=== PATIENT | female | born 1950 ===

== ENCOUNTER 2020-05-29 14:02 | Outpatient (REF) | payer MEDICARE, MEDICAID, SELFPAY | END 2020-05-29 14:03 | disposition home or self-care (01) | LOC: HO.HOSX 14:02 | PROVIDERS: Visit Provider Orthopaedic Surgery | DX: Z13.89 Encounter for screening for other disorder (principal) ==

== ENCOUNTER 2020-05-30 12:33 | Outpatient (REF) | payer MEDICARE, MEDICAID, SELFPAY ==
--- NOTE | ~2020-05-30 | XR_ITS ---
EXAMINATION: CR X-RAY KNEE RIGHT 2 VIEW, KNEE STANDING BILATERAL CLINICAL INFORMATION: Right knee pain. COMPARISON: 10/31/2017 TECHNIQUE: 2 views of the right knee as well as standing AP views of the bilateral knees. FINDINGS: Mild to moderate tricompartmental degenerative joint changes are seen most pronounced in the lateral femoral tibial and patellofemoral joint spaces. There is no acute fracture or dislocation. There is a possible trace suprapatellar joint effusion. The soft tissues are unremarkable. XR/XR knee RT 2V IMPRESSION: [id number] tricompartmental degenerative joint changes without significant change. Possible trace suprapatellar joint effusion.
--- NOTE | ~2020-05-30 | XR_ITS ---
EXAMINATION: CR X-RAY KNEE RIGHT 2 VIEW, KNEE STANDING BILATERAL CLINICAL INFORMATION: Right knee pain. COMPARISON: 10/31/2017 TECHNIQUE: 2 views of the right knee as well as standing AP views of the bilateral knees. FINDINGS: Mild to moderate tricompartmental degenerative joint changes are seen most pronounced in the lateral femoral tibial and patellofemoral joint spaces. There is no acute fracture or dislocation. There is a possible trace suprapatellar joint effusion. The soft tissues are unremarkable. XR/XR knee standing BI IMPRESSION: [id number] tricompartmental degenerative joint changes without significant change. Possible trace suprapatellar joint effusion.
== END 2020-05-30 12:34 | disposition home or self-care (01) ==
LOC: HO.HOSX 12:33
PROVIDERS: PCP Internal Medicine; Visit Provider Orthopaedic Surgery
DX: M25.561 Pain in right knee (principal); M25.562 Pain in left knee; M17.0 Bilateral primary osteoarthritis of knee
CPT/HCPCS: 20610; 73560; 73565; 99212; J1020; J1040

== ENCOUNTER 2020-11-09 15:43 | Outpatient (REF) | payer MEDICARE, MEDICAID, SELFPAY ==
--- NOTE | 2020-11-09 | PFT_ITS ---
INDICATION: Asthma, status post COVID. SPIROMETRY: The FEV1 to FVC of 89% with an FEV1 of 1.74 L which is 90% predicted, an FVC of 1.96 L which is 77% predicted. Postbronchodilator shows significant improvement of the FVC by 13%. Maximum voluntary ventilation 112% predicted. LUNG VOLUMES: Total lung capacity 92% predicted with an expiratory reserve volume of 44% predicted. DIFFUSION CAPACITY: DLCO of 90% predicted. COMPARISONS: None available. INTERPRETATION: No obstructive nor restrictive ventilatory defects identified. There was a significant response to bronchodilators especially with history of asthma. Lung volumes are within normal limits and diffusion capacity also within normal limits. Clinical correlation warranted. Nico De Luna MD MR/MODL / [id number]
== END 2020-11-09 15:44 | disposition home or self-care (01) ==
LOC: HO.RESP 15:43
PROVIDERS: PCP Internal Medicine Geriatric Medicine; Visit Provider Nurse Practitioner Primary Care
DX: J45.41 Moderate persistent asthma with (acute) exacerbation (principal); Z86.16 Personal history of COVID-19
CPT/HCPCS: 94060; 94727; 94729

== ENCOUNTER 2020-12-13 09:45 | Outpatient (REF) | payer MEDICARE, MEDICAID, SELFPAY ==
[2020-12-13 12:01] LABS: MANUAL DIFF FLAG NO
[2020-12-13 12:06] LABS: Basophils Absolute Auto 0.1 X10*3/uL (0.0-0.2); Basophils Percent Auto 1.1 % (0-2); Eosinophils Absolute Auto 0.4 X10*3/uL (0.0-0.4); Eosinophils Percent Auto 6.1 % (0-4); Hematocrit 37.9 % (37-47); Hemoglobin 11.8 g/dl (12.0-16.0); Imm Gran Abs Auto 0.02 X10*3/uL (0.00-0.03); Imm Gran Pct Auto 0.3 % (0.0-0.4); Lymphocytes Absolute Auto 1.8 X10*3/uL (1.2-4.9); Lymphocytes Percent Auto 28.7 % (20-40); Mean Corpuscular HGB Conc 31.1 g/dl (31.0-35.0); Mean Corpuscular Hemoglobin 27.6 pg (27.0-33.0); Mean Corpuscular Volume 88.8 fL (80-98); Mean Platelet Volume 11.4 fL (9.4-12.3); Monocytes Absolute Auto 0.7 X10*3/uL (0.1-1.2); Monocytes Percent Auto 10.9 % (2-11); Neutrophils Absolute Auto 3.4 X10*3/uL (2.0-8.3); Neutrophils Percent Auto 52.9 % (45-73); Platelet Count 272 X10*3/uL (160-400); Red Blood Count 4.27 X10*6/uL (4.20-5.50); Red Cell Distribution Width 13.3 % (11.0-16.0); White Blood Count 6.4 X10*3/uL (4.8-10.8)
[2020-12-13 12:32] LABS: Anion Gap 13 (12-20); Blood Urea Nitrogen 21 mg/dL (9-16); Calcium 9.3 mg/dL (8.4-10.2); Carbon Dioxide 27 mmol/L (22-29); Chloride 104 mmol/L (96-108); Estimated Glomerular Filt Rate > 60; Glucose Random 94 mg/dL (60-115); Potassium 4.1 mmol/L (3.3-5.1); Sodium 140 mmol/L (135-145)
[2020-12-13 13:30] LABS: Erythrocyte Sedimentation Rate 18 MM/HR (0-20)
[2020-12-16 13:46] LABS: IgA 319 mg/dL (70-320); IgG 1016 mg/dL (600-1540); IgM 45 mg/dL (50-300)
== END 2020-12-13 09:46 | disposition home or self-care (01) ==
LOC: HO.LAB 09:45
PROVIDERS: PCP Internal Medicine Geriatric Medicine; Visit Provider Hospitalist
DX: J33.9 Nasal polyp, unspecified (principal); J45.909 Unspecified asthma, uncomplicated; T78.40XA Allergy, unspecified, initial encounter
CPT/HCPCS: 36415; 80048; 82784; 82785; 85025; 85652; 86003; 99202

== ENCOUNTER → 2021-08-31 10:46 | Outpatient (BNVA) | payer MEDICARE, MEDICAID, SELFPAY | PROVIDERS: PCP Internal Medicine Geriatric Medicine; Visit Provider Hospitalist | DX: J45.50 Severe persistent asthma, uncomplicated (principal); J33.9 Nasal polyp, unspecified; T78.40XA Allergy, unspecified, initial encounter; Z79.899 Other long term (current) drug therapy | CPT/HCPCS: 99212 ==

== ENCOUNTER 2021-10-05 11:51 | Outpatient (REF) | payer MEDICARE, MEDICAID, SELFPAY | END 2021-10-05 11:52 | disposition home or self-care (01) | LOC: HO.MDS 11:51 | PROVIDERS: Visit Provider Hospitalist | DX: J45.40 Moderate persistent asthma, uncomplicated (principal); J82.83 Eosinophilic asthma | CPT/HCPCS: 96372; J0517 ==

== ENCOUNTER 2021-10-15 07:58 | Outpatient (REF) | payer MEDICARE, MEDICAID, SELFPAY ==
--- NOTE | ~2021-10-15 | XR_ITS ---
EXAMINATION: XR KNEES, STANDING AP XR KNEE, RIGHT XR KNEE, LEFT CLINICAL INFORMATION: Knee pain COMPARISON: Standing AP knees and right knee radiographs 05/30/2020. TECHNIQUE: Standing AP view of both knees is performed. Each knee is also imaged in lateral and axial patella views. FINDINGS: Right: There are osteoarthritic changes greatest patellofemoral joint without lateralization or tilting. Severity is similar to prior radiographs 2020. Lesser degenerative changes again noted medial lateral knee joint compartments. No visible chondrocalcinosis. No destructive process. No effusion. Hoffa's fat pad appears normal. No fracture or dislocation. Left: There is tricompartment osteoarthritis greatest in patellofemoral joint and lateral knee joint compartment similar in severity to prior exam 2020. There is borderline secondary genu valgus. No chondrocalcinosis. No capsular effusion. Hoffa's fat pad appears normal. No fracture or dislocation. XR/XR knee RT 2V IMPRESSION: Right: -Osteoarthritis greatest patellofemoral joint, lesser knee joint. -No effusion. Left: -Tricompartment osteoarthritis greatest patellofemoral joint and lateral knee joint compartment. -Borderline secondary genu valgus. -No effusion.
--- NOTE | ~2021-10-15 | XR_ITS ---
EXAMINATION: XR KNEES, STANDING AP XR KNEE, RIGHT XR KNEE, LEFT CLINICAL INFORMATION: Knee pain COMPARISON: Standing AP knees and right knee radiographs 05/30/2020. TECHNIQUE: Standing AP view of both knees is performed. Each knee is also imaged in lateral and axial patella views. FINDINGS: Right: There are osteoarthritic changes greatest patellofemoral joint without lateralization or tilting. Severity is similar to prior radiographs 2020. Lesser degenerative changes again noted medial lateral knee joint compartments. No visible chondrocalcinosis. No destructive process. No effusion. Hoffa's fat pad appears normal. No fracture or dislocation. Left: There is tricompartment osteoarthritis greatest in patellofemoral joint and lateral knee joint compartment similar in severity to prior exam 2020. There is borderline secondary genu valgus. No chondrocalcinosis. No capsular effusion. Hoffa's fat pad appears normal. No fracture or dislocation. XR/XR knee LT 2V IMPRESSION: Right: -Osteoarthritis greatest patellofemoral joint, lesser knee joint. -No effusion. Left: -Tricompartment osteoarthritis greatest patellofemoral joint and lateral knee joint compartment. -Borderline secondary genu valgus. -No effusion.
--- NOTE | ~2021-10-15 | XR_ITS ---
EXAMINATION: XR KNEES, STANDING AP XR KNEE, RIGHT XR KNEE, LEFT CLINICAL INFORMATION: Knee pain COMPARISON: Standing AP knees and right knee radiographs 05/30/2020. TECHNIQUE: Standing AP view of both knees is performed. Each knee is also imaged in lateral and axial patella views. FINDINGS: Right: There are osteoarthritic changes greatest patellofemoral joint without lateralization or tilting. Severity is similar to prior radiographs 2020. Lesser degenerative changes again noted medial lateral knee joint compartments. No visible chondrocalcinosis. No destructive process. No effusion. Hoffa's fat pad appears normal. No fracture or dislocation. Left: There is tricompartment osteoarthritis greatest in patellofemoral joint and lateral knee joint compartment similar in severity to prior exam 2020. There is borderline secondary genu valgus. No chondrocalcinosis. No capsular effusion. Hoffa's fat pad appears normal. No fracture or dislocation. XR/XR knee standing BI IMPRESSION: Right: -Osteoarthritis greatest patellofemoral joint, lesser knee joint. -No effusion. Left: -Tricompartment osteoarthritis greatest patellofemoral joint and lateral knee joint compartment. -Borderline secondary genu valgus. -No effusion.
== END 2021-10-15 07:59 | disposition home or self-care (01) ==
LOC: HO.HOSX 07:58
PROVIDERS: Visit Provider Physician Assistant
DX: M17.0 Bilateral primary osteoarthritis of knee (principal)
CPT/HCPCS: 20610; 73560; 73565; 99212; J1040

== ENCOUNTER 2021-11-02 12:15 | Outpatient (REF) | payer MEDICARE, MEDICAID, SELFPAY | END 2021-11-02 12:16 | disposition home or self-care (01) | LOC: HO.MDS 12:15 | PROVIDERS: Visit Provider Hospitalist | DX: J45.40 Moderate persistent asthma, uncomplicated (principal); J82.83 Eosinophilic asthma | CPT/HCPCS: 96372; 99212; J0517 ==

== ENCOUNTER 2021-12-10 11:53 | Outpatient (REF) | payer MEDICARE, MEDICAID, SELFPAY | END 2021-12-10 11:54 | disposition home or self-care (01) | LOC: HO.MDS 11:53 | PROVIDERS: Visit Provider Hospitalist | DX: J45.40 Moderate persistent asthma, uncomplicated (principal); J82.83 Eosinophilic asthma | CPT/HCPCS: 96372; J0517 ==

== ENCOUNTER → 2021-12-19 15:00 | Outpatient (BNVA) | payer MEDICARE, MEDICAID, SELFPAY | PROVIDERS: PCP Internal Medicine Geriatric Medicine; Referring Provider Internal Medicine Geriatric Medicine; Visit Provider Internal Medicine | DX: Z01.810 Encounter for preprocedural cardiovascular examination (principal); R07.2 Precordial pain; I10 Essential (primary) hypertension; E78.00 Pure hypercholesterolemia, unspecified | CPT/HCPCS: 93005; 99202 ==

== ENCOUNTER → 2021-12-27 10:15 | Outpatient (REF) | payer OTHER, SELFPAY ==
--- NOTE | 2021-12-27 10:17 | CA_ITS ---
Transthoracic Echocardiogram Patient (Last, First, Middle): Page Chavez, Gender: Female Date of : 1950 Age: 71 Procedure Date: 12/27/2021 Procedure Type: Transthoracic Echocardiogram Location: OP Height: 152.4 cm Weight: 72.58 kg BSA: 1.70 m2 Heart Rate: bpm BP: 130 / 75 mmHg Waste Baler: TO Referring MD: Maximilian Shirley MD [employer] Driver: Jaison Grimm MD Symptoms: R07.2 - Precordial pain Study Quality: Fair/contrast ECG Rhythm: Sinus Conclusions: - 1. Normal LV systolic and diastolic function 2. Mild aortic regurgitation 3. Normal RV systolic pressure 4. No pericardial effusion Findings Procedure Information Contrast agent, definity, is being given per protocol without apparent complications. Left Ventricle The visually estimated ejection fraction is between 65-70%. Spectral Doppler is indicative of a normal filling pattern. Right Ventricle Normal right ventricular cavity size and systolic function. Atria Both atria are normal in size. There is no evidence of interatrial shunt. Aortic Valve The aortic valve structure and function is likely normal. There is no aortic valve stenosis. There is mild aortic valve regurgitation. Mitral Valve Normal mitral valve structure and function. There is trace mitral valve regurgitation. There is no mitral valve stenosis. Pulmonic Valve The pulmonic valve was not well visualized. Tricuspid Valve Likely normal tricuspid valve structure and function. There is trace tricuspid valve regurgitation. The right ventricular systolic pressure is normal. The right ventricular systolic pressure is 26 mmHg. Normal right atrial pressure. There is no evidence of pulmonary hypertension. Great Vessels All visible segments of the aorta are normal in size. The pulmonary artery was not well visualized. Venous The inferior vena cava is normal in size and collapses greater than 50% with inspiration. Pericardium/Pleural There is no evidence of pericardial effusion. Prior Study Comparison Changes noted compared to prior study dated: 09/16/2016. Mild aortic regurgitation is noted Measurements 2D Linear Measurements IVSd: 1.02 0.6-0.9/0.6-1.0 cm LVIDd: 4.14 3.9-5.3/4.2-5.9 cm LVIDd Index: 2.44 2.4-3.2/2.2-3.1 cm/m2 LVIDs: 2.67 2.0-3.6 cm LVPWd: 1.00 0.7-1.1 cm LA Diam: 2.80 2.7-3.8/3.0-4.0 cm LAIDs Index: 1.65 1.5-2.3 cm/m2 LV Mass: 169.30 67-162/88-224 g LV Mass Index: 99.59 43-95/49-115 g/m2 LVOT Diam: 2.00 3.0+(-)1.3 cm 2D Systolic Function EF 4C: 69.00 >55% EF 2C: 72.80 >55% EF BiP: 71.10 >55% Mitral Valve MV Pk E: 0.80 MV PK A: 0.56 MV Decel Time: 168.00 E/A: 1.40 E'Lateral: 10.00 E'Medial: 5.98 E/E' Med: 13.40 E/E' Lat: 8.00 PHT: 49.00 MVA PHT: 4.49 Decel Glynn: 4.76 Aortic Valve AoV Pk Isidoro: 1.33 AoV Mn Isidoro: 0.89 AoV VTI: 0.28 AoV Pk Grad: 7.00 Aov Mn Grad: 4.00 PAYAL Cont.VTI: 1.91 LVOT LVOT Pk Isidoro: 0.69 LVOT Mn Isidoro: 0.46 LVOT VTI: 0.17 LVOT Pk Grad: 2.00 LVOT Mn Grad: 1.00 LVOT Diam: 2.00 LVOT Area: 3.14 Diastolic Function MV Pk E: 0.80 MV Pk A: 0.56 E/A: 1.40 E'Medial: 5.98 E/E' Med: 13.40 E' Laterial: 10.00 E/E' Lat: 8.00 Right Ventricle TAPSE (mm): 12.00 Tricuspid Valve TR Pk Isidoro: 2.40 TR Pk Grad: 23.00 RA Press: 3.00 RVSP: 26.00 Great Vessels Aorta Sinus of Valsalva: 3.26 2.0-3.[address] Ridge: 2.10 1.7-3.4 cm Ao Asc: 3.50 2.1-3.4 cm Updated in Other Vendor System with Status of Final Jaison Grimm MD electronically signed on 12/28/2021 2:37:18 PM with status of Final
== END ==
LOC: HO.CARD 10:15
PROVIDERS: Visit Provider Internal Medicine
DX: Z01.818 Encounter for other preprocedural examination (principal); R07.2 Precordial pain
CPT/HCPCS: 93306; Q9957

== ENCOUNTER → 2022-01-30 08:37 | Outpatient (REF) | payer OTHER, MEDICAID, SELFPAY ==
--- NOTE | ~2022-01-30 | NM_ITS ---
Lexiscan Myocardial perfusion study Indication: Chest pain, assess for coronary disease and ischemia Technique: The patient was brought in for a Lexiscan perfusion study on 01/30/2022 and was injected 0.4 mg of Lexiscan intravenously. Within a minute of this injection 25 mCi of sestamibi was given intravenously. Images were obtained using the SPECT gamma camera interlaced with the gating device. Images were obtained in supine position. Resting perfusion study was performed on 01/30/2022. Patient was administered 8 mCi of sestamibi intravenously at rest. Images were then obtained in supine position. Images were processed with the software and compared side to side in short axis, horizontal long axis and vertical long axis views. Total DLP 144mGy-cm. Findings: Raw acquisition reviewed. Arms by the patient's side. The stress perfusion study showed no significant perfusion abnormality. Both uncorrected as well as CT attenuation corrected images were reviewed. The gated study shows normal LV systolic function with calculated LVEF of > 70%. LV cavity is normal in size. The gated study shows normal wall thickening and contraction of segments. Resting study shows no significant perfusion abnormality. Gating at rest reveals normal wall motion with ejection fraction at 70%. The findings are consistent with no clear reversible or fixed perfusion defects. NM/NM maximo perf SPECT rest & str Impression: 1. Myocardial perfusion imaging study shows likely normal myocardial perfusion. No clear evidence of any ischemia or infarction. 2. Gated LVEF is > 70% during stress; 70% during rest. 3. Transient ischemic dilatation not present. EKG component of the test reported separately.
--- NOTE | 2022-01-30 08:41 | CA_ITS ---
Acquisition Time: 2022-01-30 09:36:03 Total Exercise Time: 00:02:00 Test Indications: CP, SOB Medications: SEE CHART Protocol: LEXISCAN Max HR: 099 BPM 66% of Pred: 150 BPM Max BP: 130/070 mmHG Max Work Load: 1.0 METS Pharmacological stress test with Lexiscan injection, while sitting and kicking her legs, without anginal symptoms, without arrythmia, with normotensive response to injection, with nondiagnostic EKG for ischemia. In recovery she was treated with Aminophylline 75m IVP to reverse Lexiscan. Nuclear images pending. Test reviewed with Dr Covington. Referred By: Maximilian Shirley Overread By: KEKE FORTE
== END ==
LOC: HO.CARD 08:37
PROVIDERS: Visit Provider Internal Medicine
DX: R07.2 Precordial pain (principal)
CPT/HCPCS: 78452; 93017; A9500; J0280; J2785; Q0163

== ENCOUNTER 2022-02-12 13:33 | Outpatient (REF) | payer OTHER, MEDICAID, SELFPAY | END 2022-02-12 13:34 | disposition home or self-care (01) | LOC: HO.MDS 13:33 | PROVIDERS: Visit Provider Hospitalist | DX: J45.40 Moderate persistent asthma, uncomplicated (principal); J82.83 Eosinophilic asthma | CPT/HCPCS: 96372 ==

== ENCOUNTER 2022-04-09 10:48 | Outpatient (REF) | payer MEDICARE, MEDICAID, SELFPAY | END 2022-04-09 10:49 | disposition home or self-care (01) | LOC: HO.MDS 10:48 | PROVIDERS: Visit Provider Hospitalist | DX: J45.50 Severe persistent asthma, uncomplicated (principal); J82.83 Eosinophilic asthma; J40 Bronchitis, not specified as acute or chronic | CPT/HCPCS: 96372; 99212; J0517 ==

== ENCOUNTER 2022-07-05 11:19 | Outpatient (REF) | payer MEDICARE, MEDICAID, SELFPAY | END 2022-07-05 11:20 | disposition home or self-care (01) | LOC: HO.MDS 11:19 | PROVIDERS: Visit Provider Hospitalist | DX: J45.50 Severe persistent asthma, uncomplicated (principal); J82.83 Eosinophilic asthma | CPT/HCPCS: 96372 ==

== ENCOUNTER 2022-09-12 09:55 | Outpatient (REF) | payer MEDICARE, MEDICAID, SELFPAY | END 2022-09-12 09:56 | disposition home or self-care (01) | LOC: HO.MDS 09:55 | PROVIDERS: Visit Provider Hospitalist | DX: J45.50 Severe persistent asthma, uncomplicated (principal) | CPT/HCPCS: 96372 ==

== ENCOUNTER → 2022-09-23 14:11 | Outpatient (BNVA) | payer MEDICARE, MEDICAID, SELFPAY | PROVIDERS: PCP Internal Medicine Geriatric Medicine; Visit Provider Hospitalist | DX: J45.50 Severe persistent asthma, uncomplicated (principal); J40 Bronchitis, not specified as acute or chronic; J33.9 Nasal polyp, unspecified; T78.40XD Allergy, unspecified, subsequent encounter | CPT/HCPCS: 99212 ==

== ENCOUNTER 2022-11-05 13:10 | Outpatient (REF) | payer MEDICARE, MEDICAID, SELFPAY | END 2022-11-05 13:11 | disposition home or self-care (01) | LOC: HO.MDS 13:10 | PROVIDERS: Visit Provider Hospitalist | DX: J45.50 Severe persistent asthma, uncomplicated (principal) | CPT/HCPCS: 96372 ==

== ENCOUNTER 2022-12-31 12:14 | Outpatient (REF) | payer MEDICARE, MEDICAID, SELFPAY | END 2022-12-31 12:15 | disposition home or self-care (01) | LOC: HO.MDS 12:14 | PROVIDERS: Visit Provider Hospitalist | DX: J45.50 Severe persistent asthma, uncomplicated (principal) | CPT/HCPCS: 96372 ==

== ENCOUNTER 2023-02-05 10:59 | Outpatient (AMB) | payer MEDICARE, MEDICAID, SELFPAY ==
[2023-02-05 11:24] VITALS: PULSE 70; O2SAT 96; BMI 28.5
--- NOTE | 2023-02-05 11:24 | MHC.OFFVIS ---
Intake Vital Signs 02/05/23 11:24 Height 5 ft Weight 146 lb BMI 28.5 Pulse 70 Pulse Source Pulse Oximeter Pulse Oximetry (%) 96 Oxygen Delivery Method Room Air Intake Visit Reasons: Asthma [employer] Instructor Required: No Allergies fluticasone furoate [From Trelegy Ellipta] Allergy (Severe, Verified 02/05/23 11:55) Palpitations umeclidinium [From Trelegy Ellipta] Allergy (Severe, Verified 02/05/23 11:55) Palpitations vilanterol [From Trelegy Ellipta] Allergy (Severe, Verified 02/05/23 11:55) Palpitations sulfamethoxazole [Bactrim] Allergy (Unknown, Verified 02/05/23 11:55) Nausea trimethoprim [Bactrim] Allergy (Unknown, Verified 02/05/23 11:55) nausea Hyoscyamine Allergy (Unknown, Uncoded 02/05/23 11:55) ulcers on legs, systemic swelling Methenamine Hippurate Allergy (Unknown, Uncoded 02/05/23 11:55) ulcers on legs, systemic swelling Methylene Blue Allergy (Unknown, Uncoded 02/05/23 11:55) ulcers on legs, systemic swelling Phenyl-T Allergy (Unknown, Uncoded 02/05/23 11:55) ulcers on legs, systemic swelling salicylates Allergy (Unknown, Uncoded 02/05/23 11:55) ulcers on legs, systemic swelling Sodium Phosphate Allergy (Unknown, Uncoded 02/05/23 11:55) ulcers on legs, systemic swelling HPI HPI Comments History of Present Illness Details The patient is a 72-year-old woman with a known history of lifelong asthma who had been under normal control until she developed COVID about a year ago. apparently she was not significantly sick with COVID. She was able to stay home and she recuperated quickly after that. However, she noticed her asthma was more problematic. She has been given numerous inhalers with only partial resolution of the symptoms. More recently she was placed on Bevespi and also budesonide nebs. This is been partially helpful. I had to to get the patient about how taking medications which may have been a component of her age however, she continues very wheezy even after start to take the medications correctly she does have allergies. She is going to wear exactly which she is allergic to this time as she had allergy testing many years ago. 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 on further questioning she has been followed up by ENT and was given therapy for her nasal congestion and chronic rhinitis. She does have a history of nasal polyposis and has had a Polypectomy in the past per most of her care at the time was done in [place]. 04/09/2022 the patient is here for pulmonary follow-up visit. She is complaining of increasing sore throat and cough. Cough is congested in nature. Moderate severity. She also has been of some chest tightness and wheezing. She has been using her inhaler, albuterol, watch her twice a day. However, her maintenance inhaler she has not been able to get and she is not using the patient understands that she has severe asthma and although the Fasenra as effective she also needs to use her regular maintenance inhalers to improve her respiratory capacity. Therefore, I will send her Trelegy to the pharmacy. Hopefully with this she will be maximized on respiratory therapy and have better adherence. In addition to that she needs to consider the Fasenra. The patient is having a positive response to the biologic therapy. If however she continues to be symptomatic require medications we can consider an alternative to her biologic medication. Apparently her daughter had a bad reaction to Dupixent and therefore they would like to hold off on that. Will continue with the Fasenra for now and maximize her respiratory therapy. The patient also be treated for a mild bout of bronchitis with a Z-Luigi. If the patient has not better she can start a course of prednisone specially developed worsening chest tightness and wheezing. 09/23/2022 the patient is here for a pulmonary follow-up visit. She has been having worsening asthma symptoms for the last couple weeks. Significant wheezing. She has been using her nebulizer every 3-4 hours. She is also waking up with shortness of breath and cough. Likely related to environmental exposures including the fires. She patient has been on the Fasenra injections and has been significantly effective for her. The patient also has a nebulizer. Has been using Trelegy inhaler once a day. Will go ahead and maximize her respiratory therapy by adding budesonide nebs. If the patient is no better she is going to need prednisone. She already completed a course of antibiotics. Hold off any additional antibiotics at this time. 02/05/2023 the patient is here for a pulmonary follow-up visit. The patient overall is doing better. She had a bad reaction to Trelegy and she went back on Breo. She is tolerating that well. She also has been on the Fasenra injections every 2 months and this has been very affecting beneficial for her. She still has significant allergies. Also has significant arthritis and will need to have a knee replacement done soon. The patient overall is doing well she continues on her neb treatments although she has not required her budesonide nebulized therapy. She did use some prednisone but was mainly for arthritis then asthma. I did caution her to be careful with prednisone because they can cause significant adverse effects and bone weakness and poor wheezing healing. Therefore, the patient will try to minimize on the use of any steroids. Will have her undergo a chest x-ray. The patient will continue with current respiratory regimen if she has any issues she can always call for an earlier assessment. Right now from a pulmonary standpoint the patient is able to proceed with any orthopedic surgery and anesthesia. [facility] Medical History (Updated 04/09/22 @ 12:48 by Nico De Luna MD) Allergies Nasal polyps Asthma Esophageal abnormality Diverticula of intestine Hernia Anemia Herniated disc Active asthma High cholesterol Hypertension Surgical History H/O tubal ligation Family History (Updated 12/19/21 @ 15:06 by TARA Thompson) Father No problems noted. Mother No problems noted. Social History Patient Tobacco Use Status: Never used Tobacco Current occupational status: retired Review of Systems Const Denies night sweats ENT Denies change in voice, Denies lip swelling, Denies mouth pain, Reports nasal congestion, Reports nasal discharge, Reports sore throat, Denies throat swelling and Denies tongue swelling Card Denies chest pain and Reports dyspnea Resp Denies change in phlegm color, Denies chest congestion, Reports cough, Reports dyspnea and Reports wheezing GI Denies abdominal pain Musc Reports as per HPI, Reports myalgias, Reports arthralgias and Reports joint swelling Neuro Denies Neuro-related abnormal movements Psych Denies no additional complaints Erich/Lymph Denies easy bleeding and Denies lymphadenopathy Aller/Immun Reports no additional complaints, Reports urticaria, Denies lip swelling, Reports seasonal rhinorrhea, Denies throat swelling, Denies tongue swelling and Reports wheezing Physical Exam Vital Signs: Last Vital Signs Pulse 70 02/05/23 11:24 Pulse Ox 96 02/05/23 11:24 Oxygen Delivery Method Room Air 02/05/23 11:24 BMI result Body Mass Index 28.5 Const General: healthy appearing Orientation/consciousness: patient oriented x3 HEENT Head: Yes normal to inspection Ears: hearing grossly normal bilaterally Eyes General: appearance normal, both eyes and all related structures Neck Neck: Yes normal visual inspection Resp Effort & Inspection: normal respiratory effort and able to speak in complete sentences Auscultation: no wheezes and diminished lung sounds Skin General skin exam: no rashes or lesions noted Neuro General: patient oriented x3 and moves all extremities Extrem Other: bilateral knees normal to inspection. No effusion, erythema, or ecchymosis. Full ROM with crepitus. NVI. Assessment & Plan Assessment & Plan (1) Nasal polyps: Code(s): J33.9 - Nasal polyp, unspecified (2) Allergies: Code(s): T78.40XA - Allergy, unspecified, initial encounter Qualifiers: Encounter type: initial encounter Qualified Code(s): T78.40XA - Allergy, unspecified, initial encounter (3) Asthma: Code(s): J45.909 - Unspecified asthma, uncomplicated Qualifiers: Asthma complication type: uncomplicated Asthma persistence: persistent Asthma severity: severe Qualified Code(s): J45.50 - Severe persistent asthma, uncomplicated Plan stopped Trelegy 200, adverse effects continue Breo 200 holding Budesonide nebs short-acting beta as needed continue Fasenra every 2 months continue singulair Tessalon pearls for cough Follow-up in 6 months Coding Level of Care Code Est Pt Level 4 (04684) Diagnoses Nasal polyps J33.9 Allergy, initial encounter T78.40XA Encounter type: initial encounter Severe persistent asthma without complication J45.50 Asthma complication type: uncomplicated Asthma persistence: persistent Asthma severity: severe Time Spent (min) 16
== END 2023-02-05 12:02 | disposition home or self-care (01) ==
PROVIDERS: PCP Internal Medicine Geriatric Medicine; Visit Provider Hospitalist
DX: J33.9 Nasal polyp, unspecified (principal); T78.40XA Allergy, unspecified, initial encounter; J45.50 Severe persistent asthma, uncomplicated
CPT/HCPCS: 99214

== ENCOUNTER → 2023-02-05 10:59 | Outpatient (BNVA) | payer MEDICARE, MEDICAID, SELFPAY | PROVIDERS: PCP Internal Medicine Geriatric Medicine; Visit Provider Hospitalist | DX: J33.9 Nasal polyp, unspecified (principal); J45.50 Severe persistent asthma, uncomplicated; T78.40XD Allergy, unspecified, subsequent encounter | CPT/HCPCS: 99212 ==

== ENCOUNTER 2023-03-03 12:15 | Outpatient (REF) | payer MEDICARE, MEDICAID, SELFPAY | END 2023-03-03 12:16 | disposition home or self-care (01) | LOC: HO.MDS 12:15 | PROVIDERS: Visit Provider Hospitalist | DX: J45.50 Severe persistent asthma, uncomplicated (principal) | CPT/HCPCS: 96372; J0517 ==

== ENCOUNTER 2023-04-28 11:28 | Outpatient (REF) | payer MEDICARE, MEDICAID, SELFPAY | END 2023-04-28 11:29 | disposition home or self-care (01) | LOC: HO.MDS 11:28 | PROVIDERS: Visit Provider Hospitalist | DX: J45.50 Severe persistent asthma, uncomplicated (principal) | CPT/HCPCS: 96372 ==

== ENCOUNTER 2023-08-08 11:30 | Outpatient (AMB) | payer MEDICARE, MEDICAID, SELFPAY ==
--- NOTE | 2023-08-08 11:36 | MHC.OFFVIS ---
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: No Allergies fluticasone furoate [From Trelegy Ellipta] Allergy (Severe, Verified 08/08/23 11:40) Palpitations umeclidinium [From Trelegy Ellipta] Allergy (Severe, Verified 08/08/23 11:40) Palpitations vilanterol [From Trelegy Ellipta] Allergy (Severe, Verified 08/08/23 11:40) Palpitations sulfamethoxazole [Bactrim] Allergy (Unknown, Verified 08/08/23 11:40) Nausea trimethoprim [Bactrim] Allergy (Unknown, Verified 08/08/23 11:40) nausea Hyoscyamine Allergy (Unknown, Uncoded 08/08/23 11:40) ulcers on legs, systemic swelling Methenamine Hippurate Allergy (Unknown, Uncoded 08/08/23 11:40) ulcers on legs, systemic swelling Methylene Blue Allergy (Unknown, Uncoded 08/08/23 11:40) ulcers on legs, systemic swelling Phenyl-T Allergy (Unknown, Uncoded 08/08/23 11:40) ulcers on legs, systemic swelling salicylates Allergy (Unknown, Uncoded 08/08/23 11:40) ulcers on legs, systemic swelling Sodium Phosphate Allergy (Unknown, Uncoded 08/08/23 11:40) ulcers on legs, systemic swelling HPI Comments Details: The patient is a 72-year-old woman with a known history of lifelong asthma who had been under normal control until she developed COVID about a year ago. apparently she was not significantly sick with COVID. She was able to stay home and she recuperated quickly after that. However, she noticed her asthma was more problematic. She has been given numerous inhalers with only partial resolution of the symptoms. More recently she was placed on Bevespi and also budesonide nebs. This is been partially helpful. I had to to get the patient about how taking medications which may have been a component of her age however, she continues very wheezy even after start to take the medications correctly she does have allergies. She is going to wear exactly which she is allergic to this time as she had allergy testing many years ago. 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 on further questioning she has been followed up by ENT and was given therapy for her nasal congestion and chronic rhinitis. She does have a history of nasal polyposis and has had a Polypectomy in the past per most of her care at the time was done in [place]. 04/09/2022 the patient is here for pulmonary follow-up visit. She is complaining of increasing sore throat and cough. Cough is congested in nature. Moderate severity. She also has been of some chest tightness and wheezing. She has been using her inhaler, albuterol, watch her twice a day. However, her maintenance inhaler she has not been able to get and she is not using the patient understands that she has severe asthma and although the Fasenra as effective she also needs to use her regular maintenance inhalers to improve her respiratory capacity. Therefore, I will send her Trelegy to the pharmacy. Hopefully with this she will be maximized on respiratory therapy and have better adherence. In addition to that she needs to consider the Fasenra. The patient is having a positive response to the biologic therapy. If however she continues to be symptomatic require medications we can consider an alternative to her biologic medication. Apparently her daughter had a bad reaction to Dupixent and therefore they would like to hold off on that. Will continue with the Fasenra for now and maximize her respiratory therapy. The patient also be treated for a mild bout of bronchitis with a Z-Luigi. If the patient has not better she can start a course of prednisone specially developed worsening chest tightness and wheezing. 09/23/2022 the patient is here for a pulmonary follow-up visit. She has been having worsening asthma symptoms for the last couple weeks. Significant wheezing. She has been using her nebulizer every 3-4 hours. She is also waking up with shortness of breath and cough. Likely related to environmental exposures including the fires. She patient has been on the Fasenra injections and has been significantly effective for her. The patient also has a nebulizer. Has been using Trelegy inhaler once a day. Will go ahead and maximize her respiratory therapy by adding budesonide nebs. If the patient is no better she is going to need prednisone. She already completed a course of antibiotics. Hold off any additional antibiotics at this time. 02/05/2023 the patient is here for a pulmonary follow-up visit. The patient overall is doing better. She had a bad reaction to Trelegy and she went back on Breo. She is tolerating that well. She also has been on the Fasenra injections every 2 months and this has been very affecting beneficial for her. She still has significant allergies. Also has significant arthritis and will need to have a knee replacement done soon. The patient overall is doing well she continues on her neb treatments although she has not required her budesonide nebulized therapy. She did use some prednisone but was mainly for arthritis then asthma. I did caution her to be careful with prednisone because they can cause significant adverse effects and bone weakness and poor wheezing healing. Therefore, the patient will try to minimize on the use of any steroids. Will have her undergo a chest x-ray. The patient will continue with current respiratory regimen if she has any issues she can always call for an earlier assessment. Right now from a pulmonary standpoint the patient is able to proceed with any orthopedic surgery and anesthesia. 08/08/2023 the patient is here for a pulmonary follow-up visit. Overall she is doing very well. Unfortunately she has been late on the Fasenra because of some pharmacy issues. We were able to rectify the issue she is going to get a shot next week. The Fasenra has been very affecting beneficial for her allergic asthma. She continues on the Breo and she still requires her maintenance therapies as prescribed. Although she has not required any prednisone which is reassuring. The patient did have an abdominal issue requiring surgery back in the summer. She did have a CT scan of the abdomen we were able to look at the lung windows. I personally reviewed the lung cuts in her lungs appear to demonstrate evidence of some bronchiectatic changes with some signet ring sign in addition to some mosaic pattern because of her asthma. Therefore she understands her chronic issues are there in the Fasenra will help decrease the inflammation hopefully settle down those adaptations. The patient will receive the Prevnar 20 vaccine today. Otherwise the patient is doing well she will follow-up in 6 months. If she has any worsening symptoms prior to her next visit she will call for an earlier assessment. [facility] Medical History (System 03/07/23 @ 11:01 by Lakeisha Kraft) Allergies Nasal polyps Asthma Esophageal abnormality Diverticula of intestine Hernia Anemia Herniated disc Active asthma High cholesterol Hypertension Surgical History (System 03/07/23 @ 11:01 by Lakeisha Kraft) H/O tubal ligation Family History (System 03/07/23 @ 11:01 by Lakeisha Kraft) Father No problems noted. Mother No problems noted. Social History (System 03/07/23 @ 11:01 by Lakeisha Kraft) Patient Tobacco Use Status: Never used Tobacco Current occupational status: retired Review of Systems Const Denies night sweats ENT Denies change in voice, Denies lip swelling, Denies mouth pain, Reports nasal congestion, Reports nasal discharge, Reports sore throat, Denies throat swelling and Denies tongue swelling Card Denies chest pain and Reports dyspnea Resp Denies change in phlegm color, Denies chest congestion, Reports cough, Reports dyspnea and Reports wheezing GI Denies abdominal pain Musc Reports as per HPI, Reports myalgias, Reports arthralgias and Reports joint swelling Neuro Denies Neuro-related abnormal movements Psych Denies no additional complaints Erich/Lymph Denies easy bleeding and Denies lymphadenopathy Aller/Immun Reports no additional complaints, Reports urticaria, Denies lip swelling, Reports seasonal rhinorrhea, Denies throat swelling, Denies tongue swelling and Reports wheezing Physical Exam Vital Signs: Last Vital Signs Pulse 68 08/08/23 11:38 Pulse Ox 97 08/08/23 11:38 Oxygen Delivery Method Room Air 08/08/23 11:38 BMI result Body Mass Index 29.7 Const General: healthy appearing Orientation/consciousness: patient oriented x3 HEENT Head: Yes normal to inspection Ears: hearing grossly normal bilaterally Eyes General: appearance normal, both eyes and all related structures Neck Neck: Yes normal visual inspection Chest Chest palpation & inspection: normal inspection of the chest Resp Effort & Inspection: normal respiratory effort and able to speak in complete sentences Auscultation: no wheezes and diminished lung sounds Skin General skin exam: no rashes or lesions noted Neuro General: patient oriented x3 and moves all extremities Extrem Other: bilateral knees normal to inspection. No effusion, erythema, or ecchymosis. Full ROM with crepitus. NVI. Assessment & Plan Assessment & Plan (1) Nasal polyps: Code(s): J33.9 - Nasal polyp, unspecified Category: Medical (2) Allergies: Code(s): T78.40XA - Allergy, unspecified, initial encounter Category: Medical Qualifiers: Encounter type: initial encounter Qualified Code(s): T78.40XA - Allergy, unspecified, initial encounter (3) Asthma: Code(s): J45.909 - Unspecified asthma, uncomplicated Category: Medical Qualifiers: Asthma complication type: uncomplicated Asthma persistence: persistent Asthma severity: severe Qualified Code(s): J45.50 - Severe persistent asthma, uncomplicated Plan continue Breo 200 holding Budesonide nebs short-acting beta as needed continue Fasenra every 2 months continue singulair Tessalon pearls for cough prevnar 20 today Follow-up in 6 months Orders: Orders Pneumococcal 20 Immunization 08/08/23 Z23 - Encounter for immunization Coding Level of Care Code Est Pt Level 4 (54140) Diagnoses Nasal polyps J33.9 Allergy, initial encounter T78.40XA Encounter type: initial encounter Severe persistent asthma without complication J45.50 Asthma complication type: uncomplicated Asthma persistence: persistent Asthma severity: severe Time Spent (min) 16
[2023-08-08 11:38] VITALS: PULSE 68; O2SAT 97; BMI 29.7
== END 2023-08-08 12:00 | disposition home or self-care (01) ==
PROVIDERS: PCP Internal Medicine Geriatric Medicine; Visit Provider Hospitalist
DX: J33.9 Nasal polyp, unspecified (principal); T78.40XA Allergy, unspecified, initial encounter; J45.50 Severe persistent asthma, uncomplicated; Z23 Encounter for immunization
CPT/HCPCS: 99214

== ENCOUNTER → 2023-08-08 11:30 | Outpatient (BNVA) | payer MEDICARE, MEDICAID, SELFPAY | PROVIDERS: PCP Internal Medicine Geriatric Medicine; Visit Provider Hospitalist | DX: J45.50 Severe persistent asthma, uncomplicated (principal); J33.9 Nasal polyp, unspecified; T78.40XA Allergy, unspecified, initial encounter; Z79.899 Other long term (current) drug therapy; Z23 Encounter for immunization | CPT/HCPCS: 90471; 90677; 99212 ==

== ENCOUNTER 2023-10-21 12:17 | Outpatient (REF) | payer MEDICARE, MEDICAID, SELFPAY ==
[2023-10-21 14:34] LABS: TSH reflex Free T4 0.81 uIU/mL (0.32-4.0)
== END 2023-10-21 12:18 | disposition home or self-care (01) ==
LOC: HO.HHCL 12:17
PROVIDERS: Visit Provider Internal Medicine Geriatric Medicine
DX: E03.9 Hypothyroidism, unspecified (principal)
CPT/HCPCS: 36415; 84443

== ENCOUNTER 2024-01-13 14:08 | Outpatient (REF) | payer MEDICARE, MEDICAID, SELFPAY ==
[2024-01-13 15:34] LABS: Influenza A PCR NEGATIVE (Negative); Influenza B PCR NEGATIVE (Negative); Resp Syncy Virus RNA Qual PCR NEGATIVE (Negative); SARS COV2 PCR INHOUSE NEGATIVE (Negative)
== END 2024-01-13 14:09 | disposition home or self-care (01) ==
LOC: HO.LNP 14:08
PROVIDERS: PCP Internal Medicine Geriatric Medicine; Visit Provider Hospitalist
DX: J40 Bronchitis, not specified as acute or chronic (principal); J33.9 Nasal polyp, unspecified; J45.50 Severe persistent asthma, uncomplicated; R50.9 Fever, unspecified; T78.40XA Allergy, unspecified, initial encounter; X58.XXXA Exposure to other specified factors, initial encounter
CPT/HCPCS: 0241U; 99212

== ENCOUNTER 2024-01-13 14:08 | Outpatient (AMB) | payer MEDICARE, MEDICAID, SELFPAY ==
[2024-01-13 14:12] VITALS: BP 128/70; PULSE 79; O2SAT 99; BMI 30.3
--- NOTE | 2024-01-13 14:12 | MHC.OFFVIS ---
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 Required: No Allergies fluticasone furoate [From Trelegy Ellipta] Allergy (Severe, Verified 01/13/24 14:15) Palpitations umeclidinium [From Trelegy Ellipta] Allergy (Severe, Verified 01/13/24 14:15) Palpitations vilanterol [From Trelegy Ellipta] Allergy (Severe, Verified 01/13/24 14:15) Palpitations sulfamethoxazole [Bactrim] Allergy (Unknown, Verified 01/13/24 14:15) Nausea trimethoprim [Bactrim] Allergy (Unknown, Verified 01/13/24 14:15) nausea Hyoscyamine Allergy (Unknown, Uncoded 01/13/24 14:15) ulcers on legs, systemic swelling Methenamine Hippurate Allergy (Unknown, Uncoded 01/13/24 14:15) ulcers on legs, systemic swelling Methylene Blue Allergy (Unknown, Uncoded 01/13/24 14:15) ulcers on legs, systemic swelling Phenyl-T Allergy (Unknown, Uncoded 01/13/24 14:15) ulcers on legs, systemic swelling salicylates Allergy (Unknown, Uncoded 01/13/24 14:15) ulcers on legs, systemic swelling Sodium Phosphate Allergy (Unknown, Uncoded 01/13/24 14:15) ulcers on legs, systemic swelling HPI Comments Details: The patient is a 73-year-old woman with a known history of lifelong asthma who had been under normal control until she developed COVID about a year ago. apparently she was not significantly sick with COVID. She was able to stay home and she recuperated quickly after that. However, she noticed her asthma was more problematic. She has been given numerous inhalers with only partial resolution of the symptoms. More recently she was placed on Bevespi and also budesonide nebs. This is been partially helpful. I had to to get the patient about how taking medications which may have been a component of her age however, she continues very wheezy even after start to take the medications correctly she does have allergies. She is going to wear exactly which she is allergic to this time as she had allergy testing many years ago. 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 on further questioning she has been followed up by ENT and was given therapy for her nasal congestion and chronic rhinitis. She does have a history of nasal polyposis and has had a Polypectomy in the past per most of her care at the time was done in [place]. 04/09/2022 the patient is here for pulmonary follow-up visit. She is complaining of increasing sore throat and cough. Cough is congested in nature. Moderate severity. She also has been of some chest tightness and wheezing. She has been using her inhaler, albuterol, watch her twice a day. However, her maintenance inhaler she has not been able to get and she is not using the patient understands that she has severe asthma and although the Fasenra as effective she also needs to use her regular maintenance inhalers to improve her respiratory capacity. Therefore, I will send her Trelegy to the pharmacy. Hopefully with this she will be maximized on respiratory therapy and have better adherence. In addition to that she needs to consider the Fasenra. The patient is having a positive response to the biologic therapy. If however she continues to be symptomatic require medications we can consider an alternative to her biologic medication. Apparently her daughter had a bad reaction to Dupixent and therefore they would like to hold off on that. Will continue with the Fasenra for now and maximize her respiratory therapy. The patient also be treated for a mild bout of bronchitis with a Z-Luigi. If the patient has not better she can start a course of prednisone specially developed worsening chest tightness and wheezing. 09/23/2022 the patient is here for a pulmonary follow-up visit. She has been having worsening asthma symptoms for the last couple weeks. Significant wheezing. She has been using her nebulizer every 3-4 hours. She is also waking up with shortness of breath and cough. Likely related to environmental exposures including the fires. She patient has been on the Fasenra injections and has been significantly effective for her. The patient also has a nebulizer. Has been using Trelegy inhaler once a day. Will go ahead and maximize her respiratory therapy by adding budesonide nebs. If the patient is no better she is going to need prednisone. She already completed a course of antibiotics. Hold off any additional antibiotics at this time. 02/05/2023 the patient is here for a pulmonary follow-up visit. The patient overall is doing better. She had a bad reaction to Trelegy and she went back on Breo. She is tolerating that well. She also has been on the Fasenra injections every 2 months and this has been very affecting beneficial for her. She still has significant allergies. Also has significant arthritis and will need to have a knee replacement done soon. The patient overall is doing well she continues on her neb treatments although she has not required her budesonide nebulized therapy. She did use some prednisone but was mainly for arthritis then asthma. I did caution her to be careful with prednisone because they can cause significant adverse effects and bone weakness and poor wheezing healing. Therefore, the patient will try to minimize on the use of any steroids. Will have her undergo a chest x-ray. The patient will continue with current respiratory regimen if she has any issues she can always call for an earlier assessment. Right now from a pulmonary standpoint the patient is able to proceed with any orthopedic surgery and anesthesia. 08/08/2023 the patient is here for a pulmonary follow-up visit. Overall she is doing very well. Unfortunately she has been late on the Fasenra because of some pharmacy issues. We were able to rectify the issue she is going to get a shot next week. The Fasenra has been very affecting beneficial for her allergic asthma. She continues on the Breo and she still requires her maintenance therapies as prescribed. Although she has not required any prednisone which is reassuring. The patient did have an abdominal issue requiring surgery back in the summer. She did have a CT scan of the abdomen we were able to look at the lung windows. I personally reviewed the lung cuts in her lungs appear to demonstrate evidence of some bronchiectatic changes with some signet ring sign in addition to some mosaic pattern because of her asthma. Therefore she understands her chronic issues are there in the Fasenra will help decrease the inflammation hopefully settle down those adaptations. The patient will receive the Prevnar 20 vaccine today. Otherwise the patient is doing well she will follow-up in 6 months. If she has any worsening symptoms prior to her next visit she will call for an earlier assessment. 01/13/2024 the patient is here for sick visit. The patient was in her usual state health until couple days ago when she started developing fevers and chills. Also developed a worsening cough. Moderate severity. She is getting headaches from coughing so much. At times productive with yellow phlegm. Having some shortness of breath. Unfortunately she is scheduled also to undergo a total knee replacement sometime next week. She has a preop tomorrow. On exam she does not have significant wheezing but she is rhonchorous and has some crackles in the right base suggesting the possibility of bronchopneumonia. She is going to need to start antibiotics at this time. I will send her prednisone in case her condition worsens but she should hold off for now. She has continued to use her nebulizer treatments will make sure to provide her some cough medicine. If the patient is no better she is going to come in for chest x-ray. But at this time if she continues to be sick in the next 24:48 hours she is going to have the postpone her surgery. She continues with respiratory therapy as prescribed. She also continues with the Fasenra with good effect. [facility] Medical History (System 03/07/23 @ 11:01 by Lakeisha Kraft) Allergies Nasal polyps Asthma Esophageal abnormality Diverticula of intestine Hernia Anemia Herniated disc Active asthma High cholesterol Hypertension Surgical History (System 03/07/23 @ 11:01 by Lakeisha Kraft) H/O tubal ligation Family History (System 03/07/23 @ 11:01 by aLkeisha Kraft) Father No problems noted. Mother No problems noted. Social History (System 03/07/23 @ 11:01 by Lakeisha Kraft) Patient Tobacco Use Status: Never used Tobacco Current occupational status: retired Review of Systems Const Reports fatigue, Reports malaise and Denies night sweats ENT Denies change in voice, Denies lip swelling, Denies mouth pain, Reports nasal congestion, Reports nasal discharge, Reports sore throat, Denies throat swelling and Denies tongue swelling Card Denies chest pain and Reports dyspnea Resp Denies change in phlegm color, Reports chest congestion, Reports cough, Reports dyspnea and Reports wheezing GI Denies abdominal pain Musc Reports as per HPI, Reports myalgias, Reports arthralgias and Reports joint swelling Neuro Denies Neuro-related abnormal movements Psych Denies no additional complaints Endo Reports fatigue Erich/Lymph Denies easy bleeding and Denies lymphadenopathy Aller/Immun Reports no additional complaints, Reports urticaria, Denies lip swelling, Reports seasonal rhinorrhea, Denies throat swelling, Denies tongue swelling and Reports wheezing Physical Exam Vital Signs: Last Vital Signs Pulse 79 01/13/24 14:12 BP 128/70 01/13/24 14:12 Pulse Ox 99 01/13/24 14:12 Oxygen Delivery Method Room Air 01/13/24 14:12 BMI result Body Mass Index 30.3 Const General: healthy appearing Orientation/consciousness: patient oriented x3 HEENT Head: Yes normal to inspection Ears: hearing grossly normal bilaterally Eyes General: appearance normal, both eyes and all related structures Neck Neck: Yes normal visual inspection Chest Chest palpation & inspection: normal inspection of the chest Resp Effort & Inspection: normal respiratory effort and able to speak in complete sentences Auscultation: rhonchi, no wheezes and diminished lung sounds Skin General skin exam: no rashes or lesions noted Neuro General: patient oriented x3 and moves all extremities Extrem Other: bilateral knees normal to inspection. No effusion, erythema, or ecchymosis. Full ROM with crepitus. NVI. Assessment & Plan Assessment & Plan (1) Bronchitis: Code(s): J40 - Bronchitis, not specified as acute or chronic Category: Medical (2) Nasal polyps: Code(s): J33.9 - Nasal polyp, unspecified Category: Medical (3) Allergies: Code(s): T78.40XA - Allergy, unspecified, initial encounter Category: Medical Qualifiers: Encounter type: initial encounter Qualified Code(s): T78.40XA - Allergy, unspecified, initial encounter (4) Asthma: Code(s): J45.909 - Unspecified asthma, uncomplicated Category: Medical Qualifiers: Asthma complication type: uncomplicated Asthma persistence: persistent Asthma severity: severe Qualified Code(s): J45.50 - Severe persistent asthma, uncomplicated Plan start ZTX prednisone if no better FLU/RSV/SARS PCR negative cough medicine as needed will likely have to postpone her TKR continue Breo 200 short-acting beta as needed continue Fasenra every 2 months continue singulair Tessalon pearls for cough prevnar 20 today Follow-up in 6 months Orders: Orders SARS-CoV2/FLU/RSV Today J40 - Bronchitis, not specified as acute or chronic XR chest 2V Today J40 - Bronchitis, not specified as acute or chronic Medications: New codeine-guaifenesin 10-100 mg/5 mL 10 mL PO Q6H PRN 300 mL 0RF cough 10 days prednisone PO daily; Take 2 tabs daily x 5 days, then 1 tablet daily x 5 days 15 tabs 0RF 10 days azithromycin 500 mg PO DAILY 5 tabs 0RF 5 days Coding Level of Care Code Est Pt Level 4 (15757) Diagnoses Bronchitis J40 Nasal polyps J33.9 Allergy, initial encounter T78.40XA Encounter type: initial encounter Severe persistent asthma without complication J45.50 Asthma complication type: uncomplicated Asthma persistence: persistent Asthma severity: severe Time Spent (min) 16
== END 2024-01-13 14:45 | disposition home or self-care (01) ==
PROVIDERS: PCP Internal Medicine Geriatric Medicine; Visit Provider Hospitalist
DX: J40 Bronchitis, not specified as acute or chronic (principal); J33.9 Nasal polyp, unspecified; T78.40XA Allergy, unspecified, initial encounter; J45.50 Severe persistent asthma, uncomplicated
CPT/HCPCS: 99214

== ENCOUNTER 2024-01-14 13:32 | Outpatient (REF) | payer MEDICARE, MEDICAID, SELFPAY ==
--- NOTE | ~2024-01-14 | XR_ITS ---
EXAMINATION: XR CHEST 2 VIEWS CLINICAL INFORMATION: Bronchitis, not specified as acute or chronic J40. COMPARISON: XR Chest 08/09/2016 TECHNIQUE: 2 views of the chest were obtained. FINDINGS: No focal infiltrate, effusion, or pneumothorax is seen. Moderate hiatus hernia. Cardiac silhouette appears upper normal in size to mildly enlarged. Uncoiled, mildly atherosclerotic aorta, suggesting hypertension. Degenerative changes of the spine with mild thoracic kyphosis. Suspect degenerative changes of the left shoulder. XR/XR chest 2V IMPRESSION: No acute finding. Electronically signed by: Mike Crowe MD 03/03/2024 12:08 PM [facility]MA[facility]
== END 2024-01-14 13:33 | disposition home or self-care (01) ==
LOC: HO.XRAY 13:32
PROVIDERS: Visit Provider Internal Medicine Geriatric Medicine
DX: J40 Bronchitis, not specified as acute or chronic (principal)
CPT/HCPCS: 71046

== ENCOUNTER 2024-05-21 10:05 | Outpatient (AMB) | payer MEDICARE, MEDICAID, SELFPAY ==
--- NOTE | 2024-05-21 10:06 | A.OFFVIS_ITS ---
Vital Signs 05/21/24 10:08 Height 5 ft Weight 155 lb 6.814 oz BMI 30.4 BP 130/82 Blood Pressure Location Lt brachial Position Sitting Pulse 76 Pulse Source Pulse Oximeter Pulse Oximetry (%) 99 Oxygen Delivery Method Room Air Intake Visit Reasons: Asthma Allergies fluticasone furoate [From Trelegy Ellipta] Allergy (Severe, Verified 01/13/24 14:15) Palpitations umeclidinium [From Trelegy Ellipta] Allergy (Severe, Verified 01/13/24 14:15) Palpitations vilanterol [From Trelegy Ellipta] Allergy (Severe, Verified 01/13/24 14:15) Palpitations sulfamethoxazole [Bactrim] Allergy (Unknown, Verified 01/13/24 14:15) Nausea trimethoprim [Bactrim] Allergy (Unknown, Verified 01/13/24 14:15) nausea Hyoscyamine Allergy (Unknown, Uncoded 01/13/24 14:15) ulcers on legs, systemic swelling Methenamine Hippurate Allergy (Unknown, Uncoded 01/13/24 14:15) ulcers on legs, systemic swelling Methylene Blue Allergy (Unknown, Uncoded 01/13/24 14:15) ulcers on legs, systemic swelling Phenyl-T Allergy (Unknown, Uncoded 01/13/24 14:15) ulcers on legs, systemic swelling salicylates Allergy (Unknown, Uncoded 01/13/24 14:15) ulcers on legs, systemic swelling Sodium Phosphate Allergy (Unknown, Uncoded 01/13/24 14:15) ulcers on legs, systemic swelling HPI Comments Details: The patient is a 73-year-old woman with a known history of lifelong asthma who had been under normal control until she developed COVID about a year ago. apparently she was not significantly sick with COVID. She was able to stay home and she recuperated quickly after that. However, she noticed her asthma was more problematic. She has been given numerous inhalers with only partial resolution of the symptoms. More recently she was placed on Bevespi and also budesonide nebs. This is been partially helpful. I had to to get the patient about how taking medications which may have been a component of her age however, she continues very wheezy even after start to take the medications correctly she does have allergies. She is going to wear exactly which she is allergic to this time as she had allergy testing many years ago. 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 on further questioning she has been followed up by ENT and was given therapy for her nasal congestion and chronic rhinitis. She does have a history of nasal polyposis and has had a Polypectomy in the past per most of her care at the time was done in [place]. 04/09/2022 the patient is here for pulmonary follow-up visit. She is complaining of increasing sore throat and cough. Cough is congested in nature. Moderate severity. She also has been of some chest tightness and wheezing. She has been using her inhaler, albuterol, watch her twice a day. However, her maintenance inhaler she has not been able to get and she is not using the patient understands that she has severe asthma and although the Fasenra as effective she also needs to use her regular maintenance inhalers to improve her respiratory capacity. Therefore, I will send her Trelegy to the pharmacy. Hopefully with this she will be maximized on respiratory therapy and have better adherence. In addition to that she needs to consider the Fasenra. The patient is having a positive response to the biologic therapy. If however she continues to be symptomatic require medications we can consider an alternative to her biologic medication. Apparently her daughter had a bad reaction to Dupixent and therefo re they would like to hold off on that. Will continue with the Fasenra for now and maximize her respiratory therapy. The patient also be treated for a mild bout of bronchitis with a Z-Luigi. If the patient has not better she can start a course of prednisone specially developed worsening chest tightness and wheezing. 09/23/2022 the patient is here for a pulmonary follow-up visit. She has been beaulieu ving worsening asthma symptoms for the last couple weeks. Significant wheezing. She has been using her nebulizer every 3-4 hours. She is also waking up with shortness of breath and cough. Likely related to environmental exposures including the fires. She patient has been on the Fasenra injections and has been significantly effective for her. The patient also has a nebulizer. Has been using Trelegy inhaler once a day. Will go ahead and maximize her respiratory therapy by adding budesonide nebs. If the patient is no better she is going to need prednisone. She already completed a course of antibiotics. Hold off any additional antibiotics at this time. 02/05/2023 the patient is here for a pulmonary follow-up visit. The patient overall is doing better. She had a bad reaction to Trelegy and she went back on Breo. She is tolerating that well. She also has been on the Fasenra injections every 2 months and this has been very affecting beneficial for her. She still has significant allergies. Also has significant arthritis and will need to have a knee replacement done soon. The patient overall is doing well she continues on her neb treatments although she has not required her budesonide nebulized therapy. She did use some prednisone but was mainly for arthritis then asthma. I did caution her to be careful with prednisone because they can cause significant adverse effects and bone weakness and poor wheezing healing. Therefore, the patient will try to minimize on the use of any steroids. Will have her undergo a chest x-ray. The patient will continue with current respiratory regimen if she has any issues she can always call for an earlier assessment. Right now from a pulmonary standpoint the patient is able to proceed with any orthopedic surgery and anesthesia. 08/08/2023 the patient is here for a pulmonary follow-up visit. Overall she is doing very well. Unfortunately she has been late on the Fasenra because of some pharmacy issues. We were able to rectify the issue she is going to get a shot next week. The Fasenra has been very affecting beneficial for her allergic asthma. She continues on the Breo and she still requires her maintenance thera pies as prescribed. Although she has not required any prednisone which is reassuring. The patient did have an abdominal issue requiring surgery back in the summer. She did have a CT scan of the abdomen we were able to look at the lung windows. I personally reviewed the lung cuts in her lungs appear to demonstrate evidence of some bronchiectatic changes with some signet ring sign in addition to some mosaic pattern because of her asthma. Therefore she understands her chronic issues are there in the Fasenra will help decrease the inflammation hopefully settle down those adaptations. The patient will receive the Prevnar 20 vaccine today. Otherwise the patient is doing well she will follow-up in 6 months. If she has any worsening symptoms prior to her next visit she will call for an earlier assessment. 01/13/2024 the patient is here for sick visit. The patient was in her usual state health until couple days ago when she started developing fevers and chills. Also developed a worsening cough. Moderate severity. She is getting headaches from coughing so much. At times productive with yellow phlegm. Having some shortness of breath. Unfortunately she is scheduled also to undergo a total knee replacement sometime next week. She has a preop tomorrow. On exam she does not have significant wheezing but she is rhonchorous and has some crackles in the right base suggesting the possibility of bronchopneumonia. She is going to need to start antibiotics at this time. I will send her prednisone in case her condition worsens but she should hold off for now. She has continue d to use her nebulizer treatments will make sure to provide her some cough medicine. If the patient is no better she is going to come in for chest x-ray. But at this time if she continues to be sick in the next 24:48 hours she is going to have the postpone her surgery. She continues with respiratory therapy as prescribed. She also continues with the Fasenra with good effect. 05/21/2024 the patient is here for a pulmonary follow-up visit. Overall she is feeling better from a respiratory status. Although she is having significant sinus congestion. She has been using the Flonase with some relief good results but it was causing her to have some epistaxis and she stopped it. We did talk about Astelin nasal spray she will try. She knows about the adverse effects. In the meantime she does follow-up with ENT. The patient does continue on the Breo. Unfortunately she has not been able to get her Fasenra injection that has been helping. In that is why all the respiratory symptoms are getting worse. Therefore we did touch base and will going to go ahead and request a refill from her specialty pharmacy in order to receive the medicine and be able to administer the Fasenra as soon as possible. In the meantime I will send her some prednisone for her to take if her symptoms worsen. As far as imaging study she did have a chest x-ray back in the fall 2023 which I personally reviewed without any acute disease. She will return back in the fall of 2024 she has any issues prior to that she will call for an earlier assessment. [facility] Medical History (System 03/07/23 @ 11:01 by Lakeisha Kraft) Allergies Nasal polyps Asthma Esophageal abnormality Diverticula of intestine Hernia Anemia Herniated disc Active asthma High cholesterol Hypertension Surgical History (System 03/07/23 @ 11:01 by Lakeisha Kraft) H/O tubal ligation Family History (System 03/07/23 @ 11:01 by Lakeisha Kraft) Father No problems noted. Mother No problems noted. Social History (System 03/07/23 @ 11:01 by Lakeisha Kraft) Patient Tobacco Use Status: Never used Tobacco Current occupational status: retired Review of Systems Const Reports fatigue, Reports malaise and Denies night sweats ENT Denies change in voice, Denies lip swelling, Denies mouth pain, Reports nasal congestion, Reports nasal discharge, Denies throat swelling and Denies tongue swelling Card Denies chest pain and Reports dyspnea on exertion Resp Denies change in phlegm color, Denies chest congestion, Reports cough, Reports dyspnea on exertion and Reports wheezing GI Denies abdominal pain Musc Reports as per HPI, Reports myalgias, Reports arthralgias and Reports joint swelling Neuro Denies Neuro-related abnormal movements Psych Denies no additional complaints Endo Reports fatigue Erich/Lymph Denies easy bleeding and Denies lymphadenopathy Aller/Immun Reports no additional complaints, Reports urticaria, Denies lip swelling, Reports seasonal rhinorrhea, Denies throat swelling, Denies tongue swelling and Reports wheezing Physical Exam Vital Signs: Last Vital Signs Pulse 76 05/21/24 10:08 BP 130/82 05/21/24 10:08 Pulse Ox 99 05/21/24 10:08 Oxygen Delivery Method Room Air 05/21/24 10:08 BMI result Body Mass Index 30.4 Const General: healthy appearing Orientation/consciousness: patient oriented x3 HEENT Head: Yes normal to inspection Ears: hearing grossly normal bilaterally Eyes General: appearance normal, both eyes and all related structures Neck Neck: Yes normal visual inspection Chest Chest palpation & inspection: normal inspection of the chest Resp Effort & Inspection: normal respiratory effort and able to speak in complete sentences Auscultation: no rhonchi, no wheezes and diminished lung sounds Skin General skin exam: no rashes or lesions noted Neuro General: patient oriented x3 and moves all extremities Extrem Other: bilateral knees normal to inspection. No effusion, erythema, or ecchymosis. Full ROM with crepitus. NVI. Assessment & Plan Assessment & Plan (1) Nasal polyps: Code(s): J33.9 - Nasal polyp, unspecified Category: Medical (2) Allergies: Code(s): T78.40XA - Allergy, unspecified, initial encounter Category: Medical Qualifiers: Encounter type: initial encounter Qualified Code(s): T78.40XA - Allergy, unspecified, initial encounter (3) Asthma: Code(s): J45.909 - Unspecified asthma, uncomplicated Category: Medical Qualifiers: Asthma complication type: uncomplicated Asthma persistence: persistent Asthma severity: severe Qualified Code(s): J45.50 - Severe persistent asthma, uncomplicated Plan cough medicine as needed continue Breo 200 short-acting beta as needed continue Fasenra every 2 months continue singulair Tessalon pearls for cough prevnar 20 today Follow-up in 6 months Medications: New azelastine administer into each nostril 2 sprays intranasal BID 30 mL 6RF 30 days prednisone PO daily; Take 2 tabs daily x 5 days, then 1 tablet daily x 5 days 15 tabs 0RF 10 days Refilled albuterol sulfate 2.5 mg (3 mL) inhalation Q4H PRN 360 mL 11RF shortness of breath or wheezing 30 days Coding Level of Care Code Est Pt Level 4 (45456) Diagnoses Nasal polyps J33.9 Allergy, initial encounter T78.40XA Encounter type: initial encounter Severe persistent asthma without complication J45.50 Asthma complication type: uncomplicated Asthma persistence: persistent Asthma severity: severe Time Spent (min) 17
[2024-05-21 10:08] VITALS: BP 130/82; PULSE 76; O2SAT 99; BMI 30.4
--- OUTSIDE RECORDS SUMMARY | 2024-05-21 11:11 | XMS_ITS | Encounter Summary ---
Author Organization [employer] Address [address] [place] [address] Care Team Providers Care Special Needs Bus Driver Name Role Phone Name, Stanley FRAGOSO Primary Care Provider [phone] Reason for Visit * Reason Onset Date Comments Appointment Request 07/04/2023 Encounter Details Date Type Department Care Team ([facility] st Contact Info) Description 07/04/2023 Telephone [facility] [address] [place] [address] Name, MD Stanley [address] [place] [address] Appointment Request Social History Tobacco Use Types Packs/Day Years Used Date Smoking Tobacco: Never Smokeless Tobacco: Never Alcohol Use Standard Drinks/Week Comments Never 0 (1 standard drink = 0.6 oz pur e alcohol) Housing Stability Answer Date Recorded What is your housing situation today? I have rose moseley 01/17/[address] you li ve. Do you have problems with any of the following? None of the above 01/17/2023 Food Insecurity Answer Date Recorded Within the past 12 months, y ou worried that your food would run out before you got money to buy more: Never True 01/17/2023 Within the past 12 months,th e food you bought just didn't last and you didn't have enough money to get more: Never True Transportation Answer Date Recorded In the past 12 months, has l ack of transportation kept you from medical appts, meetings, work or from getting things needed for daily living? No 01/17/2023 Utilities Answer Date Recorded In the past 12 months, has t he electric, gas, oil or water [employer] threatened to shut off services in your home? No 01/17/2023 Depression Answer Date Recorded Patient Health Questionnaire-2 Score 0 05/20/2022 Comments Unknown Sex and Gender Information Value Date Recorded Sex Assigned at Female 01/21/2022 10:30 AM EDT Legal Sex Female 10:30 AM EDT Gender Identity Female 01/21/2022 10:30 AM EDT Sexual Orientation Choose not to disclose 2021 10:30 AM EDT documented as of this encounter Miscellaneous Notes * Telephone Encounter - Benjamín Aguirre - 07/04/2023 10:23 AM EDT Tc from patient calling to cancel follow-up appt and would like a call back to reschedule documented in this encounter Plan of Treatment Upcoming Encounters Date Type Department Care Team (Late st Contact Info) Description 07/30/2024 10:30 AM EDT Telemedicine [facility] [address] [place] [address] Neida Lainez, RENETTA documented as of this encounter Visit Diagnoses Not on filedocumented in this encounter Care Teams Special Needs Bus Driver Relationship Specialty Start Date End Date Name, MD Stanley [address] [place] [address] PCP - General Family Medicine 02/16/19 Androcial 02/08/24 documented as of this encounter
--- OUTSIDE RECORDS SUMMARY | 2024-05-21 11:11 | XMS_ITS | Encounter Summary ---
Author Organization [employer] Address [address] [place] [address] Care Team Providers Care Equipment Hire Manager Name Role Phone Name, Stanley FRAGOSO Primary Care Provider [phone] Reason for Visit * Reason Onset Date Comments ER Follow-up 10/14/2022 Encounter Details Date Type Department Care Team ([facility] st Contact Info) Description 10/14/2022 Telephone [facility] [address] [place], [place] [id number] Name, MD Stanley [address] [place] [address] ER Follow-up Social History Tobacco Use Types Packs/Day Years Used Date Smoking Tobacco: Never Smokeless Tobacco: Never Alcohol Use Standard Drinks/Week Comments Never 0 (1 standard drink = 0.6 oz pur e alcohol) Depression Answer Date Recorded Patient Health Questionnaire-2 Score 0 05/20/2022 Comments Unknown Sex and Gender Information Value Date Recorded Sex Assigned at Female 01/21/2022 10:30 AM EDT Legal Sex Female 10:30 AM EDT Gender Identity Female 01/21/2022 10:30 AM EDT Sexual Orientation Choose not to disclose 2021 10:30 AM EDT COVID-19 Exposure Response Date Recorded In the last 10 days, have yo u been in contact with someone who was confirmed or suspected to have Coronavirus/COVID-19? No / Unsure 09/20/2022 9:58 AM EDT documented as of this encounter Miscellaneous Notes * Telephone Encounter - Nelly Herrera RN - 10/14/2022 2:24 PM EDT T/C to [phone] for below message. Pt. States she does beaulieu states bit pain but other then she isdoing ok. Pt. Schedule for ED follow up apt. On 10/24/2022. Pt. Also advise to go to nearest ED in case of any new or worsening symptoms. Walk in center hours are reviewed. Pt. Verbally agreed and understood. ED larryomero is in pt.'s chart. * Telephone Encounter - Tresa Surendra - 10/14/2022 10:04 AM EDT Patient calling to [place] [facility] [place] Seen for [place]. Patient advised will forward to team nurse for follow up. Patient speaks estonian Symptom: Hip Injury Outcome: Schedule an appointment to be seen within 24 hours Reason: Caller denied all higher acuity questions The caller accepted this outcome documented in this encounter Plan of Treatment Upcoming Encounters Date Type Department Care Team (Late st Contact Info) Description 07/30/2024 10:30 AM EDT Telemedicine [facility]INE [address] [place] [id number] Neida Lainez, RENETTA documented as of this encounter Visit Diagnoses Not on filedocumented in this encounter Care Teams Equipment Hire Manager Relationship Specialty Start Date End Date Name, MD Stanley [address] [place] [address] PCP - General Family Medicine 02/16/19 eTutor 02/08/24 documented as of this encounter
--- OUTSIDE RECORDS SUMMARY | 2024-05-21 11:11 | XMS_ITS | Clinical Summary ---
Author Organization [employer] Address [address] [facility] 7t [place] [address] Care Team Providers Care Auto Body Repairer Name Role Phone Name, Stanley FRAGOSO Primary Care Provider [phone] Allergies Active Allergy Reactions Criticality Noted Date Comments Hyoscyamine 06/03/2016 Iodinated Contrast Media Anaphylaxis High 12/18/2022 Iohexol 10/24/2022 Other reaction(s): hard time breathing, itchy throat Omnipaque 300 Methenamine 06/03/2016 Methylene Blue 06/03/2016 Salicylates 06/03/2016 Sodium Phosphate 06/03/2016 Sulfamethoxazole 04/30/2016 Sulfamethoxazole-Trimethoprim 2022 Other reaction(s): blood clots Trimethoprim 04/30/2016 Meth-Hyo-M Bl-Na Phos-Ph Quang 023 Other reaction(s): blood clots Medications acetaminophen (Tylenol 8 Hour) 650 MG ER tablet Take 1 tablet by mouth every 8 (eight) hours. 06/21/19 18 Active albuterol (2.5 MG/3ML) 0.083% nebulizer solution Inhale 3 mL every 6 (six) hours. 07/03/19 22 Active albuterol 108 (90 Base) MCG/ACT inhaler Inhale 2 puffs every 4 (four) hours. 01/30/20 21 Active Fluticasone Furoate-Vilante rol 200-25 MCG/ACT aerosol powder 05/17/19 23 Active Umeclidinium [place] (Incruse Ellipta) 62.5 MCG/ACT aerosol powder Inhale 1 puff at bed time. Active Fasenra 30 MG/ML injection 04/02/19 23 Active montelukast (Singulair) 10 MG tabletIndicatio ns:Moderate persistent asthma, unspecified whether complicated TAKE 1 TABLET BY MOUTH EVERY DAY IN THE EVENING 90 tablet 1 07/11/19 24 Active omeprazole (PriLOSEC) [address] capsuleIndicati ons:Chronic bilateral low back pain, unspecified whether sciatica present,DJD (degenerative joint disease), lumbosacral TAKE 1 CAPSULE BY ORAL ROUTE TWICE EVERY DAY BEFORE A MEAL 180 capsule 1 07/18/19 24 Active hydroCHLOROthia zide (HYDRODiuril) 25 MG tabletIndicatio ns:Essential hypertension TAKE 1 TABLET BY MOUTH EVERY DAY 90 tablet 1 08/11/19 24 Active sucralfate (Carafate) 1 g tablet TAKE 1 TABLET BY ORAL ROUTE 2 TIMES EVERY DAY ON AN EMPTY STOMACH 1 HOUR BEFORE MEALS AND AT BEDTIME 180 tablet 1 08/15/19 24 Active simvastatin (Zocor) 40 MG tabletIndicatio ns:Essential hypertension TAKE 1 TABLET BY MOUTH EVERY DAY IN THE EVENING 90 tablet 1 10/20/19 24 Active irbesartan (Avapro) 150 MG tabletIndicatio ns:Essential hypertension TAKE 1 TABLET BY MOUTH EVERY DAY 90 tablet 1 11/25/19 24 Active Diclofenac Sodium 1 % gel APPLY 2 GRAMS BY TOPICAL ROUTE (QUANTITY DIRECTED ON PACKAGE INSERT) TO AFFECTED AREA OF PAIN 3 TIMES DAILY NEEDED. 100 g 3 03/10/20 24 Active atenolol (Tenormin) 50 MG tabletIndicatio ns:Essential hypertension TAKE 1 TABLET BY MOUTH EVERY DAY 90 tablet 04/02/19 25 Active famotidine (Pepcid) 20 MG tabletIndicatio ns:Lower abdominal pain TAKE 1 TABLET BY MOUTH EVERY DAY NEEDED FOR HEARTBURN 90 tablet 04/02/19 25 Active levothyroxine (Synthroid, Levoxyl) 88 MCG tablet TAKE 1 TABLET BY MOUTH EVERY DAY 90 tablet 04/02/19 25 Active traMADol (Ultram) 50 MG tabletIndicatio ns:Chronic low back pain with sciatica, sciatica laterality unspecified, unspecified back pain laterality Take 1 tablet (50 mg) by mouth every 12 (twelve) hours if needed for severe pain for up to 28 days. 56 tablet 05/03/19 25 025 Active traMADol (Ultram) 50 MG tabletIndicatio ns:Chronic low back pain with sciatica, sciatica laterality unspecified, unspecified back pain laterality Take 1 tablet (50 mg) by mouth every 12 (twelve) hours if needed for severe pain for up to 28 days. Do not start before April 08, 2024. 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 H/O partial resection of colon 09/20/2022 Chronic low back pain 03/01/2022 Diverticulitis of sigmoid colon 03/01/2022 Moderate persistent asthma 03/01/2022 Class 1 obesity 07/14/2018 Meralgia paresthetica 02/25/2018 Snoring 02/25/2018 Dyslipidemia 12/16/2017 Lumbar spondylosis 12/16/2017 Primary osteoarthritis of both knees 12/16/2017 Spinal stenosis of lumbar re gion with neurogenic claudication 12/16/2017 Acquired hypothyroidism 03/27/2016 Disorder of intervertebral disc of thoracic spin e 03/27/2016 Hypertension 03/27/2016 Gastroesophageal reflux disease 03/27/2016 Hyperlipidemia 03/27/2016 Osteopenia 03/27/2016 Osteoarthritis of knee 03/27/2016 Encounters Date Type Department Care Team Description 05/14/2024 10:30 AM EST Telemedicine [facility] MEDICINE [address] [place] [address] Nedia Lainez RN Chronic pain of both knees 05/14/2024 Telephone [facility] [address] [place] [address] Neida Lainez RN BPI Scoring 05/14/2024 Travel 05/03/2024 Refill [facility] [address] [place] [address] Stanley Wilson MD Chronic low back pain with sciatica, sciatica laterality unspecified, unspecified back pain laterality 04/05/2024 Refill [facility] [address] [place] [address] Stanley Wilson MD Chronic low back pain with sciatica, sciatica laterality unspecified, unspecified back pain laterality 04/02/2024 Refill [facility] [place] [address] Stanley Wilson MD Essential hypertension; Lower abdominal pain 03/23/2024 Telephone [facility] [place] [address] Stanley Wilson MD FYI 03/10/2024 Refill [facility] [address] [place] [address] Stanley Wilson MD 03/09/2024 Travel 03/08/2024 Telephone [facility] [place] [address] Stanley Wilson MD post-op 03/08/2024 Refill [facility] [place] [address] Stanley Wilson MD Chronic low back pain with sciatica, sciatica laterality unspecified, unspecified back pain laterality (Primary Dx) 02/27/2024 11:00 AM EST Telemedicine [facility] [place] [address] Neida Lainez, plumber maintenance pain of both knees 02/27/2024 Travel 02/27/2024 Telephone [facility] [place] [address] Neida Lainez, bobbin drier REAL ESTATE ASSOCIATE Tier 2 from Last 3 Months Immunizations Name Administration Dates Next Due Influenza High-dose Quadrivalent Preservative Fr ee 01/15/2022 Influenza injectable quadrivalent preservative f ree 12/18/2022 Pfizer Covid-19 Vaccine 12+ 11/26/2020, Pneumococcal Conjugate PCV 13 12/16/2017 Pneumococcal Polysaccharide PPSV23 02/25/2019 Tdap 12/16/2017 Social History Tobacco Use Types Packs/Day Years Used Date Smoking Tobacco: Never Smokeless Tobacco: Never Tobacco Cessation:Counseling Given: Not Answered Alcohol Use Standard Drinks/Week Comments Never 0 [...] t he electric, gas, oil or water company threatened to shut off services in your home? No 01/17/2023 Depression Answer Date Recorded Patient Health Questionnaire-2 Score 0 05/20/2022 Comments Unknown Sex and Gender Information Value Date Recorded Sex Assigned at Female 01/21/2022 10:30 AM EDT Legal Sex Female 10:30 AM EDT Gender Identity Female 01/21/2022 10:30 AM EDT Sexual Orientation Choose not to disclose 2021 10:30 AM EDT Last Filed Vital Signs Vital Sign Reading Time Taken Comments Blood Pressure 132/66 10/21/2023 11:16 AM EDT Pulse 75 10/21/2023 11:16 AM EDT Temperature 36.7 ??C (98.1 ??F) 10/21/2023 11:16 AM E DT Respiratory Rate 26 10/21/2023 11:16 AM EDT Oxygen Saturation 98% 10/21/2023 11:16 AM EDT Inhaled Oxygen Concentration - - Weight 70.3 kg (155 lb) 10/21/2023 11:16 AM EDT Height 152.4 cm (5') 10/21/2023 11:16 AM EDT Body Mass Index 30.27 10/21/2023 11:16 AM EDT Plan of Treatment Upcoming Encounters Date Type Department Care Team (Late st Contact Info) Description 07/30/2024 10:30 AM EDT Telemedicine [facility] MED[facility]INE [address] [place] [phone] Neida Lainez, RN Health Maintenance Due Date Last Done Comments CT Colonography 1951 FIT DNA/Cologuard 1951 FIT 1950 FOBT 1950 Sigmoidoscopy 1950 Alcohol/Substance Use Screening 1963 Hepatitis C Screening 09/28/1969 Zoster Vaccines (1 of 2) 09/28/2001 RSV Patients and Patients Aged 60 years or older (1 - Risk 60-74 years 1-dose series) 2011 Mammogram 07/15/2020 07/15/2018, 07/14/2018, 06/06/2017 Depression Screening 05/20/2023 05/20/2022, 05/20/2022 SDOH Screening 05/20/2023 05/20/2022 COVID-19 Vaccine (3 - 2023-2 5 season) 2023 11/26/2020, 11/05/2020 Influenza Vaccine (#1) 2023 , 01/15/2022 Tobacco Screening 10/20/2024 10/21/2023 Lipid Panel 08/16/2026 08/16/2021 Colonoscopy 07/23/2027 07/22/2017 Colorectal Cancer Screening 07/23/2027 DTaP/Tdap/Td Vaccines (2 - T d or Tdap) 12/17/2027 12/16/2017 Pneumococcal Vaccine: 50+ Years Completed 08/08/2023, 02/25/2019, 12/16/2017 HIB Vaccines Aged Out No longer eligi ble based on patient's age to complete this topic HPV Vaccines Aged Out No longer eligi ble based on patient's age to complete this topic Hepatitis A Vaccines Aged Out No long er eligible based on patient's age to complete this topic Hepatitis B Vaccines Aged Out No long er eligible based on patient's age to complete this topic IPV Vaccines Aged Out No longer eligi ble based on patient's age to complete this topic Meningococcal Vaccine Aged Out No rk flaco eligible based on patient's age to complete this topic RSV under 20 months Aged Out No longe r eligible based on patient's age to complete this topic Rotavirus Vaccines Aged Out No longer eligible based on patient's age to complete this topic Procedures Procedure Name Priority Date/Time Associated Diagnosis Comments LIPID PANEL, STANDARD Routine 08/16/2021 10:06 AM EDT BI MAMMOGRAM SCREENING BILATERAL Routine 07/15/2018 1:13 PM EDT HM COLONOSCOPY Routine 07/22/2017 from Last 3 Months or Most Recently Relevant to Health Maintenance Results * (ABNORMAL) LIPID PANEL, STANDARD (08/16/2021 10:06 AM EDT) Chol/HDLC Ratio 3.3 <5.0 (calc) [facility] Cholesterol, Total 158 <200 mg/dL [facility] HDL Cholesterol 48(L) > OR = 50 mg/dL [facility] LDL Cholesterol 75 mg/dL (calc) [facility] Comment: Reference range: <100 ?? Desirable range <100 mg/dL for primary prevention; ?? <70 mg/dL for patients with CHD or diabetic patients ?? with > or = 2 CHD risk factors. ?? LDL-C is now calculated using the Uriah ?? calculation, which is a validated novel method providing ?? better accuracy than the Friedewald equation in the ?? estimation of LDL-C. ?? Ken WOODSON et al. AZAEL. 2013;310(19): 6843-9419 ?? (http://education.[place].com.SynGen/faq/NBD946) Non-HDL Cholesterol 110 <130 mg/dL (calc) [facility] Comment: For patients with diabetes plus 1 major ASCVD risk ?? factor, treating to a non-HDL-C goal of <100 mg/dL ?? (LDL-C of <70 mg/dL) is considered a therapeutic ?? option. Triglycerides 263(H) <150 mg/dL [facility] Comment: ?? If a non-fasting specimen was collected, consider repeat triglyceride testing on a fasting specimen if clinically indicated. ?? Annette et al. J. of Clin. Lipidol. 2015;9:129-169. ?? 08/16/2021 10:0 6 AM EDT us Stanley Wilson MD LAB BLOOD ORDERABLES Final Resul t [facility] [address] * DIGITAL BILATERAL SCREEN 1 (07/15/2018 1:13 PM EDT) Anatomical Region Laterality Modality Breast Bilateral Mammography 07/15/2018 1:13 PM EDT Narrative 07/15/2018 3:34 PM EDT Refer to the Notes tab for result details [facility] Procedure: DIGITAL BILATERAL SCREEN 1 Procedure Note Provider, Mejia, - 06/15/2022 Refer to the Notes tab for result details Legacy Procedure: DIGITAL BILATERAL SCREEN 1 Александр Hidalgo MD IMG BI PROCEDURES Final Resul t * Hm Colonoscopy (07/22/2017) Colonoscopy performed Historical Provider HEALTH MAINTENANCE Final Result from Last 3 Months or Most Recently Relevant to Health Maintenance [place] [address] [address] STANDARD [employer] Care Teams Auto Body Repairer Relationship Specialty Start Date End Date Name, MD Stanley [address] [place] [id number] PCP - General Family Medicine 02/16/19 [employer] 02/08/24
--- OUTSIDE RECORDS SUMMARY | 2024-05-21 11:11 | XMS_ITS | Encounter Summary ---
Author Organization [employer] Address [address] [place] [address] [address] [place] [address] Care Team Providers Care Leak Patcher Name Role Phone Name, Stanley FRAGOSO Primary Care Provider [phone] Encounter Details Date Type Department Care Team (Late st Contact Info) Description 08/29/2022 Orders Only [address] [phone] Joya Sen LPN Social History Tobacco Use Types Packs/Day Years Used Date Smoking Tobacco: Never Smokeless Tobacco: Never Depression Answer Date Recorded Patient Health Questionnaire-2 Score 0 05/20/2022 Comments Unknown Sex and Gender Information Value Date Recorded Sex Assigned at Female 01/21/2022 10:30 AM EDT Legal Sex Female 10:30 AM EDT Gender Identity Female 01/21/2022 10:30 AM EDT Sexual Orientation Choose not to disclose 2021 10:30 AM EDT documented as of this encounter Plan of Treatment Upcoming Encounters Date Type Department Care Team (Late st Contact Info) Description 07/30/2024 10:30 AM EDT Telemedicine [address] [address] Neida Lainez, RENETTA documented as of this encounter Visit Diagnoses Not on filedocumented in this encounter Care Teams Leak Patcher Relationship Specialty Start Date End Date Name, MD Stanley [address] [place] [phone] PCP - General Family Medicine 02/16/19 [employer] 02/08/24 documented as of this encounter
--- OUTSIDE RECORDS SUMMARY | 2024-05-21 11:11 | XMS_ITS | Encounter Summary ---
Author Organization [employer] Address [address] [facility] 7t [place] [address] Care Team Providers Care Caregivers Homecare Name Role Phone Name, Stanley FRAGOSO Primary Care Provider [phone] Reason for Visit * Reason Onset Date Comments BPI Scoring 05/14/2024 Encounter Details Date Type Department Care Team ([facility] st Contact Info) Description 05/14/2024 Telephone [facility] MEDICINE [address] [place] [address] Neida Lainez RN BPI Scoring Social History Tobacco Use Types Packs/Day Years [...] encounter Miscellaneous Notes * Telephone Encounter - Neida Lainez RN - 05/14/2024 10:40 AM EST Pt had Tele LOCOMOTIVE PIPE FITTER RV appt today BPI updated Pain severity score of 8.3, activity interference score of 7.4. Previous BPI completed 12/12/23 with pain severity score of 7, activity interference score of 6.3 documented in this encounter Plan of Treatment Upcoming Encounters Date Type Department Care Team (Late st Contact Info) Description 07/30/2024 10:30 AM EDT Telemedicine [facility] MEDICINE [address] [place] [address] Neida Lainez, RN documented as of this encounter Visit Diagnoses Not on filedocumented in this encounter Care Teams Caregivers Homecare Relationship Specialty Start Date End Date Name, MD Stanley [address] [place] [address] PCP - General Family Medicine 02/16/19 [employer] 02/08/24 documented as of this encounter
--- OUTSIDE RECORDS SUMMARY | 2024-05-21 11:11 | XMS_ITS | Encounter Summary ---
Author Organization [employer] Address [address] [facility] 7t [place] [address] Care Team Providers Care Cane Loader Name Role Phone Name, Stanley RFAGOSO Primary Care Provider [phone] Reason for Visit * Reason Comments Med Refill Encounter Details Date Type Department Care Team ([facility] st Contact Info) Description 12/03/2023 Refill [facility] [address] [place], [place] [phone] Name, MD Stanley [address] [place] [address] Chronic bilateral low back pain, unspecified whether sciatica present; DJD (degenerative joint disease), lumbosacral; Essential hypertension; Moderate persistent asthma, unspecified whether complicated Social History Tobacco Use Types Packs/Day Years [...] Info) Description 07/30/2024 10:30 AM EDT Telemedicine [facility] [address] [place] [address] Neida Lainez, RN documented as of this encounter Visit Diagnoses Diagnosis Chronic bilateral low back pain, unspecified whether sciatica present DJD (degenerative joint disease), lumbosacral Degeneration of lumbar or lumbosacral intervertebral disc Essential hypertension Unspecified essential hypertension Moderate persistent asthma, unspecified whether complicated documented in this encounter Care Teams Cane Loader Relationship Specialty Start Date End Date Name, MD Stanley [address] [place] [id number] PCP - General Family Medicine 02/16/19 [employer] 02/08/24 documented as of this encounter
--- OUTSIDE RECORDS SUMMARY | 2024-05-21 11:11 | XMS_ITS | Encounter Summary ---
Author Organization [facility] Address [address] [facility] 7t [place] [address] Care Team Providers Care Supervisor [employer] Name Role Phone Name, Stanley FRAGOSO Primary Care Provider [phone] Encounter Details Date Type Department Care Team (Late Contact Info) Description 08/23/2022 Abstract [facility] MEDICINE [address] [place] [phone] Name, MD Stanley [address] [place] [address] [phone] Social History Tobacco Use Types Packs/Day Years [...] Info) Description 07/30/2024 10:30 AM EDT Telemedicine [facility] MEDICINE [address] [place] [address] [phone] Neida Lainez RN documented as of this encounter Visit Diagnoses Not on filedocumented in this encounter Care Teams Supervisor [employer] Relationship Specialty Start Date End Date Name, MD Stanley [address] [place] [address] [phone] PCP - General Family Medicine 02/16/19 [employer] 02/08/24 documented as of this encounter
--- OUTSIDE RECORDS SUMMARY | 2024-05-21 11:11 | XMS_ITS | Encounter Summary ---
Author Organization [employer] Address 75 [facility] 7t [place] [address] Care Team Providers Care Projects Manager Name Role Phone Name, Stanley FRAGOSO Primary Care Provider [phone] Reason for Visit * Reason Comments Med Refill Encounter Details Date Type Department Care Team ([facility] st Contact Info) Description 02/20/[address] [facility] MEDICINE [address] [place], [place] [phone] Sukhdev Meyer MD [address] [place], [place] [phone] Acute pain of right knee Social History Tobacco Use Types Packs/Day Years [...] Info) Description 07/30/2024 10:[address] [facility] MEDICINE [address] [place] [address] Neida Lainez RN documented as of this encounter Visit Diagnoses Diagnosis Acute pain of right knee documented in this encounter Care Teams Projects Manager Relationship Specialty Start Date End Date Name, MD Stanley [address] [place] [address] PCP - General Family Medicine 02/16/19 [employer] 02/08/24 documented as of this encounter
--- OUTSIDE RECORDS SUMMARY | 2024-05-21 11:11 | XMS_ITS | Encounter Summary ---
Author Organization [employer] Address [address] [facility] 7t [place] [address] Care Team Providers Care Product Safety Coordinator Name Role Phone Name, Stanley FRAGOSO Primary Care Provider Encounter Details Date Type Department Care Team (Late Contact Info) Description 05/17/2022 Orders Only [facility] MEDICINE [address] [place] [phone] Joya Sen LPN Social History Tobacco Use Types Packs/Day Years Used Date Smoking Tobacco: Never Assessed Depression Answer Date Recorded Patient Health Questionnaire-2 [...] suspected to have Coronavirus/COVID-19? No / Unsure 05/20/2022 11:11 AM EST documented as of this encounter Plan of Treatment Upcoming Encounters Date Type Department Care Team (Late st Contact Info) Description 07/30/2024 10:30 AM EDT Telemedicine [facility] MEDICINE [address] [place] [address] [phone] Neida Lainez RN documented as of this encounter Visit Diagnoses Not on filedocumented in this encounter Care Teams Product Safety Coordinator Relationship Specialty Start Date End Date Name, MD Stanley [address] [place] [phone] PCP - General Family Medicine 02/16/19 [employer] 02/08/24 documented as of this encounter
--- OUTSIDE RECORDS SUMMARY | 2024-05-21 11:11 | XMS_ITS | Encounter Summary ---
Author Organization [facility] [facility] Address [address] [facility] 7t [place] [address] Care Team Providers Care Universal Grinder Tool Name Role Phone Name, Stanley FRAGOSO Primary Care Provider Encounter Details Date Type Department Care Team (Late Contact Info) Description 04/09/2022 Orders Only [facility] MEDICINE [address] [place] [address] [phone] Joya Sen LPN Social History Tobacco Use Types Packs/Day Years Used Date Smoking Tobacco: Never Assessed Comments Unknown Sex and Gender Information Value [...] suspected to have Coronavirus/COVID-19? No / Unsure 03/14/2022 9:25 AM EST documented as of this encounter Plan of Treatment Upcoming Encounters Date Type Department Care Team (Late st Contact Info) Description 07/30/2024 10:30 AM EDT Telemedicine [facility] MEDICINE [address] [place] [address] [phone] Neida Lainez RN documented as of this encounter Visit Diagnoses Not on filedocumented in this encounter Care Teams Universal Grinder Tool Relationship Specialty Start Date End Date Name, MD Stanley [address] [place] [phone] PCP - General Family Medicine 02/16/19 [employer] 02/08/24 documented as of this encounter
--- OUTSIDE RECORDS SUMMARY | 2024-05-21 11:11 | XMS_ITS | Encounter Summary ---
Author Organization [employer] Address [address] [facility] 7t [place] [address] Care Team Providers Care Bet Taker Name Role Phone Name, Stanley FRAGOSO Primary Care Provider [phone] Reason for Visit * Reason Comments Med Refill Encounter Details Date Type Department Care Team ([facility] st Contact Info) Description 03/19/2023 Refill [facility] MEDICINE [address] [place], [place] [phone] Sukhdev Meyer MD [address] [place] [address] Acute pain of right knee Social History [...] Info) Description 07/30/2024 10:30 AM EDT Telemedicine [facility] MEDICINE [address] [place] [address] Neida Lainez RN documented as of this encounter Visit Diagnoses Diagnosis Acute pain of right knee documented in this encounter Care Teams Bet Taker Relationship Specialty Start Date End Date Name, MD Stanley [address] [place] [address] PCP - General Family Medicine 02/16/19 [employer] 02/08/24 documented as of this encounter
--- OUTSIDE RECORDS SUMMARY | 2024-05-21 11:11 | XMS_ITS | Encounter Summary ---
Author Organization [employer] Address [address] [facility] 7t [place] [address] Care Team Providers Care Informatics Coordinator Name Role Phone Name, Stanley FRAGOSO Primary Care Provider [phone] Reason for Visit * Reason Comments SURGICAL ELASTIC KNITTER RV SURGICAL ELASTIC KNITTER RV Encounter Details Date Type Department Care Team ([facility] st Contact Info) Description 05/14/2024 10:30 AM EST Telemedicine [facility] MEDICINE [address] [place] [address] Neida Lainez RN Chronic pain of both knees Social History Tobacco Use Types Packs/Day Years [...] AM EDT documented as of this encounter Progress Notes * Neida Lainez RN - 05/14/2024 10:30 AM EST S: Pt called for SURGICAL ELASTIC KNITTER Revisit, translation provided by [facility]#[id number]. Prescribed Tramadol 50mg Q12hr PRN. States she has been taking as prescribed, last dose taken last night. Denies smoking cigarettes, ETOH use, Illicit drug use and marijuana use. Currently rates her pain an 8 and states medication is45% effective at alleviating pain. Current pain sites are her left knee, lower back, right arm and her feet. O: SURGICAL ELASTIC KNITTER Tele Tier 2. Pt currently prescribed Tramadol 50mg Q12hr PRN. CHUCKING MACHINE SET UP OPERATOR TOOL verified today. Rx last filled on 05/04/24. Pill count performed over the phone. Pt reports having 39 pills at this time, 35 atleast expected. BPI updated today. Pain severity score of 8.3, activity interference score of 7.4. Previous BPI completed 12/12/23 with pain severity score of 7, activity interference score of 6.3. Will update PCP with BPI scoring. Last PCP visit was 10/21/23, scheduled next 05/17/24. A: SURGICAL ELASTIC KNITTER Contract Revisit: Chronic Opioid use related to pain. P: Pt to continue taking medication only as prescribed; Next Tele SURGICAL ELASTIC KNITTER RV appointment scheduled for 07/30/24 @ 10:30am, F/U sooner PRN. Appointment reminder mailed. Pt verbalized understanding and agreed to plan. documented in this encounter Plan of Treatment Upcoming Encounters Date Type Department Care Team (Late st Contact Info) Description 07/30/2024 10:30 AM EDT Telemedicine [facility] MEDICINE [address] [place] [id number] Neida Lainez RN documented as of this encounter Visit Diagnoses Diagnosis Chronic pain of both knees documented in this encounter Care Teams Informatics Coordinator Relationship Specialty Start Date End Date Name, MD Stanley [address] [place] [address] PCP - General Family Medicine 02/16/19 [email or web address] 02/08/24 documented as of this encounter
--- OUTSIDE RECORDS SUMMARY | 2024-05-21 11:11 | XMS_ITS | Encounter Summary ---
Author Organization [employer] Address 75 [facility] 7t [place] [address] Care Team Providers Care Civil Engineering Draftsperson Name Role Phone Name, Stanley FRAGOSO Primary Care Provider [phone] Reason for Visit * Reason Onset Date Comments Med Refill 05/03/2024 Encounter Details Date Type Department Care Team (Late st Contact Info) Description 05/03/2024 Refill [facility] MEDICINE [address] [place] [address] Name, MD Stanley [address] [place] [address] Chronic low back pain with sciatica, sciatica laterality unspecified, unspecified back pain laterality Social History Tobacco Use Types Packs/Day Years [...] encounter Miscellaneous Notes * Telephone Encounter - Kathryn Márquez - 05/03/2024 12:41 PM EST TC from pt requesting medication refill. Medications needing refill : traMADol (Ultram) 50 MG tablet To be sent to: [facility]/pharmacy #[id number] - [place], [place] - [address] [facility] documented in this encounter Plan of Treatment Upcoming Encounters Date Type Department Care Team (Late st Contact Info) Description 07/30/2024 10:30 AM EDT Telemedicine [facility] MEDICINE [address] [place] [id number] Neida Lainez RN documented as of this encounter Visit Diagnoses Diagnosis Chronic low back pain with sciatica, sciatica laterality unspecified, unspecified back pain laterality documented in this encounter Care Teams Civil Engineering Draftsperson Relationship Specialty Start Date End Date Name, MD Stanley [address] [place] [address] PCP - General Family Medicine 02/16/19 [employer] 02/08/24 documented as of this encounter
--- OUTSIDE RECORDS SUMMARY | 2024-05-21 11:11 | XMS_ITS | Encounter Summary ---
Author Organization [facility] Address [address] [place] [address] Care Team Providers Care Vb Developer Name Role Phone Alejandro Britton MD Primary Care Provider [phone] Encounter Details Date Type Department Care Team (Late st Contact Info) Description 01/27/2024 Lab Requisition [facility] - Main Lab [address] [place] [address] Alejandro Britton MD [address] [place] [address] Anemia, unspecified Social History Tobacco Use Types Packs/Day Years Used Date Smoking Tobacco: Never Assessed Comments Unknown Sex and Gender Information Value Date Recorded Sex Assigned at Not on file Legal Sex Female 2:11 AM EST Gender Identity Not on file Sexual Orientation Not on file documented as of this encounter Plan of Treatment Not on file documented as of this encounter Procedures Procedure Name Priority Date/Time Associated Diagnosis Comments TRAVEL PHLEBOTOMY FEE Routine 01/27/2024 5:10 AM EST Anemia, unspecified COMPLETE BLOOD COUNT Routine 01/27/2024 5:10 AM EST Anemia, unspecified BASIC METABOLIC PANEL Routine 01/27/2024 5:10 AM EST Anemia, unspecified documented in this encounter Results * Travel phlebotomy fee (01/27/2024 5:10 AM EST) [facility] TRAVEL PHLEBOTOMY FEE Completed 01/27/2024 9:01 AM EST [facility] ([facility]) [facility] LAB Blood Venous blood specimen / Unknown Venipuncture / Unknown 01/27/2024 5:10 AM EST 01/27/2024 8:35 AM EST Alejandro Britton MD LAB BLOOD ORDERABLES Final Resul t [facility] LAB [address] [place] [address], [place] [phone] * Basic metabolic panel (01/27/2024 5:10 AM EST) Sodium 140 133 - 145 mmol/L LAB CHEMISTRY METHOD 01/27/2024 10:23 AM [facility] LAB Potassium 4.3 3.5 - 5.5 mmol/L LAB CHEMISTRY METHOD 01/27/2024 10:23 AM [facility] Chloride 105 96 - 110 mmol/L LAB CHEMISTRY METHOD 01/27/2024 10:23 AM [facility] CO2 31 21 - 32 mmol/L LAB CHEMISTRY METHOD 01/27/2024 10:23 AM [facility] Anion Gap 4 3 - 11 LAB CHEMISTRY METHOD 01/27/2024 10:23 AM [facility] Glucose 87 70 - 100 mg/dL LAB CHEMISTRY METHOD 01/27/2024 10:23 AM [facility] BUN 16 5 - 25 mg/dL LAB CHEMISTRY METHOD 01/27/2024 10:23 AM [facility] Creatinine 0.62 0.50 - 1.10 mg/dL LAB CHEMISTRY METHOD 01/27/2024 10:23 AM [facility] LAB eGFR 95 >=60 mL/min/1. 73m2 LAB CHEMISTRY METHOD 01/27/2024 10:23 AM [facility] LAB Comment:Calculation based on the??Chronic Kidney Disease Epidemiology Collaboration (CKD-EPI) equation refit??without adjustment for race. BUN/Creatinine Ratio 25.8 LAB CHEMISTRY METHOD 01/27/2024 10:23 AM [facility] Calcium 8.8 8.5 - 10.5 mg/dL LAB CHEMISTRY METHOD 01/27/2024 10:23 AM [facility] Blood Venous blood specimen / Unknown Venipuncture / Unknown 01/27/2024 5:10 AM EST 01/27/2024 8:35 AM EST us Alejandro Britton MD LAB BLOOD ORDERABLES Final Resul t [facility] LAB [address] [place] [address], [place] [phone] * (ABNORMAL) Complete blood count (01/27/2024 5:10 AM EST) WBC 7.6 4.8 - 10.8 K/mcL LAB HEMETOLOGY METHOD 01/27/2024 9:59 AM [facility] RBC 3.10(L) 3.80 - 4.80 M/[facility] LAB HEMETOLOGY METHOD 01/27/2024 9:59 AM [facility] Hemoglobin 7.5(L) 11.5 - 16.0 g/dL LAB HEMETOLOGY METHOD 01/27/2024 9:59 AM [facility] Hematocrit 25.2(L) 35.0 - 47.0 % LAB HEMETOLOGY METHOD 01/27/2024 9:59 AM [facility] MCV 82.6 79.0 - 98.0 FL LAB HEMETOLOGY METHOD 01/27/2024 9:59 AM [facility] MCH 24.6(L) 27.0 - 32.0 pcg LAB HEMETOLOGY METHOD 01/27/2024 9:59 AM [facility] MCHC 29.8(L) 32.0 - 37.0 g/dL LAB HEMETOLOGY METHOD 01/27/2024 9:59 AM [facility] RDW 15.2(H) 11.0 - 15.0 % LAB HEMETOLOGY METHOD 01/27/2024 9:59 AM EST [facility] LAB Platelets 309 130 - 400 K/mcL LAB HEMETOLOGY METHOD 01/27/2024 9:59 AM EST [facility] LAB MPV 10.4 7.0 - 11.0 FL LAB HEMETOLOGY METHOD 01/27/2024 9:59 AM EST [facility] LAB NRBC 0.0 <1.0 % LAB HEMETOLOGY METHOD 01/27/2024 9:59 AM [facility] NRBC Absolute 0.00 <0.10 K/mcL LAB HEMETOLOGY METHOD 01/27/2024 9:59 AM [facility] Blood Venous blood specimen / Unknown Venipuncture / Unknown 01/27/2024 5:10 AM EST 01/27/2024 8:35 AM EST us Alejandro Britton MD LAB BLOOD ORDERABLES Final Resul t [facility] [address] [place] [address], documented in this encounter Visit Diagnoses Diagnosis Anemia, unspecified documented in this encounter Care Teams Vb Developer Relationship Specialty Start Date End Date Alejandro Britton MD [address] [place] [address] [address] [place] [address] PCP - General Geriatric Medicine 01/28/24 documented as of this encounter
--- OUTSIDE RECORDS SUMMARY | 2024-05-21 11:11 | XMS_ITS | Encounter Summary ---
Author Organization [employer] Address [address] [facility] 7[address] [place] [address] Care Team Providers Care Assistant Golf Course Superintendent Name Role Phone Name, Stanley FRAGOSO Primary Care Provider [phone] Reason for Visit * Reason Onset Date Comments Medication Question 08/06/2022 Encounter Details Date Type Department Care Team ([facility] st Contact Info) Description 08/06/2022 Telephone [facility] MEDICINE [address] [place] [address] Name, MD Stanley [address] [place] [address] Medication Question Social History Tobacco Use Types Packs/Day Years [...] encounter Miscellaneous Notes * Telephone Encounter - Elliott Gutierrez - 08/09/2022 9:46 AM EDT Tc from pt returning brenda per notes, pt is requesting status on medication for tramadol. Please contact at [phone] Icelandic * Telephone Encounter - Sarah Kelley RN - 08/08/2022 10:05 AM EDT Placed call to [facility] Colorectal surgeon regarding message below. Advised Peggy that ASA is not indicated for pt if pt has no hx of IA, CVA, or stent placement. Peggy stated she will discuss with surgeon and will call back with POC or other questions. Informed Peggy that pt called this morning asking if Tramadol can be refilled after pt just had surgery for a colectomy. She will discuss with surgeon if refill can be sent and inform our office if unable to refill. * Telephone Encounter - Sarah Kelley RN - 08/06/2022 2:38 PM EDT Please review message below as PCP off. [facility] colorectal requesting if pt should be on a daily ASA aspt platelets were elevated * Telephone Encounter - Tresa Agosto - 08/06/2022 9:59 AM EDT Tc from Peggy at [facility] Colorectal Surgery Dept calling in regards to patient having surgery with them on 07/22/22 and patient being week. They had patient get blood work where her platelets were high. Peggy is inquiring if it's okay for patient to be on daily aspiring. Please call [phone]. documented in this encounter Plan of Treatment Upcoming Encounters Date Type Department Care Team (Late st Contact Info) Description 07/30/2024 10:30 AM EDT Telemedicine [facility] MEDICINE [address] [place] [address] Neida Lainez RN documented as of this encounter Visit Diagnoses Not on filedocumented in this encounter Care Teams Assistant Golf Course Superintendent Relationship Specialty Start Date End Date Name, MD Stanley [address] [place] [address] PCP - General Family Medicine 02/16/19 [employer] 02/08/24 documented as of this encounter
--- OUTSIDE RECORDS SUMMARY | 2024-05-21 11:11 | XMS_ITS | Clinical Summary ---
Author Organization [address] [facility] Address [address] [place] [address] Phone Care Team Providers Care Pipe Supervisor Name Role Phone Alejandro Britton MD Primary Care Provider [phone] Social History Tobacco Use Types Packs/Day Years Used Date Smoking Tobacco: Never Assessed Comments Unknown Sex and Gender Information Value Date Recorded Sex Assigned at Not on file Legal Sex Female 2:11 AM EST Gender Identity Not on file Sexual Orientation Not on file Plan of Treatment Health Maintenance Due Date Last Done Comments Zoster Vaccines (1 of 2) 09/28/2001 RSV Immunization Patients 60 + Years Old (1 - Risk 60-74 years 1-dose series) 2011 Breast Cancer Screening 07/15/2020 07/15/2018 COVID-19 Vaccine (3 - 2023-2 5 season) 2023 11/26/2020, 11/05/2020 Influenza Vaccine (#1) 2023 , 01/15/2022 Colorectal Cancer Screening: Colonoscopy 01/28/2024 Depression Screening 01/28/2024 Falls Risk Assessment 01/28/2024 Hepatitis C Screening 01/28/2024 Medicare Annual Wellness Visit 01/28/2024 Osteoporosis Screening (Bone Density Screening) 01/28/2024 Social Influencers of Health Screening 01/28/2024 Hypertension/CHF/CAD Annual BMP Blood Test 01/26/2025 01/27/2024 Cholesterol Screening (Lipid Panel) 08/16/2026 08/16/2021 DTaP,Tdap,and Td Vaccines (2 - Td or Tdap) 12/17/2027 12/16/2017 Pneumococcal Vaccine: 50+ Years Completed 02/25/2019, 12/16/2017 HIB Vaccines Aged Out No [...] on patient's age to complete this topic MMR Vaccines Aged Out No longer eligi ble based on patient's age to complete this topic Meningococcal ACWY Vaccine Aged Out N o longer eligible based on patient's age to complete this topic Meningococcal B Vacine Aged Out No lo nger eligible based on patient's age to complete this topic RSV Immunization Patients Under 20 months Aged Out No longer eligible b ased on patient's age to complete this topic Varicella Vaccines Aged Out No longer eligible based on patient's age to complete this topic Procedures Procedure Name Priority Date/Time Associated Diagnosis Comments BASIC METABOLIC PANEL Routine 01/27/2024 5:10 AM EST Anemia, unspecified from Last 3 Months or Most Recently Relevant to Health Maintenance Results * Basic metabolic panel (01/27/2024 5:10 AM EST) Sodium 140 133 - 145 mmol/L LAB CHEMISTRY METHOD 01/27/2024 10:23 AM [facility] LAB Potassium 4.3 3.5 - 5.5 mmol/L LAB CHEMISTRY METHOD 01/27/2024 10:23 AM [facility] LAB Chloride 105 96 - 110 mmol/L LAB CHEMISTRY METHOD 01/27/2024 10:23 AM [facility] LAB CO2 31 21 - 32 mmol/L LAB CHEMISTRY METHOD 01/27/2024 10:23 AM [facility] LAB Anion Gap 4 3 - 11 LAB CHEMISTRY METHOD 01/27/2024 10:23 AM [facility] LAB Glucose 87 70 - 100 mg/dL LAB CHEMISTRY METHOD 01/27/2024 10:23 AM [facility] LAB BUN 16 5 - 25 mg/dL LAB CHEMISTRY METHOD 01/27/2024 10:23 AM [facility] LAB Creatinine 0.62 0.50 - 1.10 mg/dL LAB CHEMISTRY METHOD 01/27/2024 10:23 AM EST [facility] LAB eGFR 95 >=60 mL/min/1. 73m2 LAB CHEMISTRY METHOD 01/27/2024 10:23 AM EST [facility] LAB Comment:Calculation based on the??Chronic Kidney Disease Epidemiology Collaboration (CKD-EPI) equation refit??without adjustment for race. BUN/Creatinine Ratio 25.8 LAB CHEMISTRY METHOD 01/27/2024 10:23 AM EST [facility] LAB Calcium 8.8 8.5 - 10.5 mg/dL LAB CHEMISTRY METHOD 01/27/2024 10:23 AM [facility] LAB Blood Venous blood specimen / Unknown Venipuncture / Unknown 01/27/2024 5:10 AM EST 01/27/2024 8:35 AM EST us Alejandro Britton MD LAB BLOOD ORDERABLES Final Resul t [facility] LAB [address] [place] [address], from Last 3 Months or Most Recently Relevant to Health Maintenance Insurance MEDICAID - [place] [employer] MEDICARE Care Teams Pipe Supervisor Relationship Specialty Start Date End Date Alejandro Britton MD [address] [place] [address] [address] [place] [address] PCP - General Geriatric Medicine 01/28/24
--- OUTSIDE RECORDS SUMMARY | 2024-05-21 11:11 | XMS_ITS | Encounter Summary ---
Author Organization [employer] Address 75 [facility] 7t [place] [address] Care Team Providers Care Fountain Worker Name Role Phone Name, Stanley FRAGOSO Primary Care Provider [phone] Encounter Details Date Type Department Care Team (Latest Contact Info) Description 05/14/2024 Travel Social History Tobacco Use Types Packs/Day Years Used Date Smoking Tobacco: Never Smokeless Tobacco: Never Alcohol Use Standard Drinks/Week Comments Never 0 (1 standard drink = 0.6 oz pur e alcohol) Housing Stability Answer Date Recorded What is your housing situation today? I have rose [place] 01/17/[address] you li [...] Info) Description 07/30/2024 10:30 AM EDT Telemedicine [facility] MEDICINE [address] [place] [address] Neida Lainez, RENETTA documented as of this encounter Visit Diagnoses Not on filedocumented in this encounter Care Teams Fountain Worker Relationship Specialty Start Date End Date Name, MD Stanley [address] [place] [address] PCP - General Family Medicine 02/16/19 [employer] 02/08/24 documented as of this encounter
--- OUTSIDE RECORDS SUMMARY | 2024-05-21 11:12 | XMS_ITS | Encounter Summary ---
Author Organization [employer] Address 75 [facility] 7t [place] [address] Care Team Providers Care Newspaper Distributor Supervisor Name Role Phone Name, Stanley FRAGOSO Primary Care Provider [phone] Reason for Visit * Reason Onset Date Comments Med Refill 06/30/2023 Acute pain - right knee arthroscopy 05/30/2306/29 Encounter Details Date Type Department Care Team (Late st Contact Info) Description 06/30/2023 Telephone [facility] MEDICINE [address] [place], [place] [phone] Name, MD Stanley [address] [place], [place] [id number] Med Refill; Acute pain - right knee arthroscopy 05/30/23 Social History Tobacco Use Types Packs/Day Years [...] Telephone Encounter - Neida Lainez RN - 06/30/2023 10:45 AM EDT TC to patient, spoke with jerica/Noble. Reviewed patients recent surgical history - right knee arthroscopy done 05/30/23 and discharge narcotics prescribed. Jerica stating that patient is still in a lot of pain and its radiating to her feet. Advised to call surgeons office and discuss current pain issues and request pain medication from surgeon at this time. Explained PCP manages patients chronic pain versus surgeon manages patients acute pain. Jerica stated she understood and will call back if any further issues. * Telephone Encounter - Benjamín Aguirre - 06/30/2023 9:48 AM EDT TC from pt requesting medication refill. Medications needing refill : traMADol (Ultram) 50 MG tablet To be sent to: [facility]/pharmacy #[id number] - [place], [place] - [address] [facility] documented in this encounter Plan of Treatment Upcoming Encounters Date Type Department Care Team (Late st Contact Info) Description 07/30/2024 10:30 AM EDT Telemedicine [facility] MEDICINE [address] [place] [address] Neida Lainez, RN documented as of this encounter Visit Diagnoses Not on filedocumented in this encounter Care Teams Newspaper Distributor Supervisor Relationship Specialty Start Date End Date Name, MD Stanley [address] [place] [address] PCP - General Family Medicine 02/16/19 [employer] 02/08/24 documented as of this encounter
== END 2024-05-21 10:29 | disposition home or self-care (01) ==
PROVIDERS: PCP Internal Medicine Geriatric Medicine; Visit Provider Hospitalist
DX: J33.9 Nasal polyp, unspecified (principal); T78.40XA Allergy, unspecified, initial encounter; J45.50 Severe persistent asthma, uncomplicated
CPT/HCPCS: 99214

== ENCOUNTER → 2024-05-21 10:05 | Outpatient (BNVA) | payer MEDICARE, MEDICAID, SELFPAY | PROVIDERS: PCP Internal Medicine Geriatric Medicine; Visit Provider Hospitalist | DX: J45.50 Severe persistent asthma, uncomplicated (principal); T78.40XA Allergy, unspecified, initial encounter; J33.9 Nasal polyp, unspecified | CPT/HCPCS: 99212 ==

== ENCOUNTER 2024-08-04 08:55 | Outpatient (REF) | payer MEDICARE, MEDICAID, SELFPAY ==
--- OUTSIDE RECORDS SUMMARY | 2024-08-04 09:20 | XMS_ITS | Encounter Summary ---
Author Organization [employer] Address 75 [facility] 7t [place] [address] Care Team Providers Care Sales Associate Cashier Name Role Phone Name, Stanley FRAGOSO Primary Care Provider [phone] Reason for Visit * Reason Onset Date Comments ER Follow-up 10/14/2022 Encounter Details Date Type Department Care Team ([facility] st Contact Info) Description 10/14/2022 Telephone [facility] MEDICINE [address] [place] [address] Name, MD Stanley [address] [place] [address] ER Follow-up Social History Tobacco Use Types [...] - 10/14/2022 2:24 PM EDT T/C to [phone] for below message. Pt. States she does beaulieu states bit pain but other then she isdoing ok. Pt. Schedule for ED follow up apt. On 10/24/2022. Pt. Also advise to go to nearest ED in case of any new or worsening symptoms. Walk in center hours are reviewed. Pt. Verbally agreed and understood. ED michael is in pt.'s chart. * Telephone Encounter - Tresa Surendra - 10/14/2022 10:04 AM EDT Patient calling to report ED visit on 10/12/22 at [facility]. Seen for fall. Patient advised will forward to team nurse for follow up. Patient speaks german Symptom: Hip Injury Outcome: Schedule an appointment to be seen within 24 hours Reason: Caller denied all higher acuity questions The caller accepted this outcome documented in this encounter Plan of Treatment Upcoming Encounters Date Type Department Care Team (Late st Contact Info) Description 10/15/2024 10:00 AM EDT Telemedicine [facility] MEDICINE [address] [place] [address] Neida Lainez, RENETTA documented as of this encounter Visit Diagnoses Not on filedocumented in this encounter Care Teams Sales Associate Cashier Relationship Specialty Start Date End Date Name, MD Stanley [address] [place] [address] PCP - General Family Medicine 02/16/19 [employer] 02/08/24 documented as of this encounter
--- OUTSIDE RECORDS SUMMARY | 2024-08-04 09:20 | XMS_ITS | Encounter Summary ---
Author Organization [employer] Address 75 [facility] 7t [place] [address] Care Team Providers Care Web Offset Press Feeder Name Role Phone Name, Stanley FRAGOSO Primary Care Provider [phone] Reason for Visit * Reason Comments Med Refill Encounter Details Date Type Department Care Team ([facility] st Contact Info) Description 12/03/2023 Refill [facility] [address] [place], [place] [id number] Name, MD Stanley [address] [place] [address] Chronic bilateral low back pain, unspecified whether [...] Info) Description 10/15/2024 10:00 AM EDT Telemedicine [facility] MEDICINE [address] [place] [address] Neida Lainez, RN documented as of this encounter Visit Diagnoses Diagnosis Chronic bilateral low back pain, unspecified whether sciatica present DJD (degenerative joint disease), 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
--- OUTSIDE RECORDS SUMMARY | 2024-08-04 09:20 | XMS_ITS | Clinical Summary ---
Author Organization [employer] Address [address] [facility] 7t [place] [address] Care Team Providers Care Can Crimper Name Role Phone Name, Stanley FRAGOSO Primary Care Provider [phone] Allergies Active Allergy Reactions Criticality Noted Date [...] tablet by mouth every 8 (eight) hours. 018 Active albuterol (2.5 MG/3ML) 0.083% nebulizer solution Inhale 3 mL every 6 (six) hours. 022 Active albuterol 108 (90 Base) MCG/ACT inhaler Inhale 2 puffs every 4 (four) hours. 021 Active Fluticasone Furoate-Vilante rol 200-25 MCG/ACT aerosol powder 023 Active Umeclidinium [place] (Incruse Ellipta) 62.5 MCG/ACT aerosol powder Inhale 1 puff at bed time. Active Fasenra 30 MG/ML injection 023 Active montelukast (Singulair) 10 MG tabletIndicatio ns:Moderate persistent asthma, unspecified whether complicated TAKE 1 TABLET BY MOUTH EVERY DAY IN THE EVENING 90 tablet 1 024 Active omeprazole (PriLOSEC) [address] capsuleIndicati ons:Chronic bilateral low back pain, unspecified whether sciatica present,DJD (degenerative joint disease), lumbosacral TAKE 1 CAPSULE BY ORAL ROUTE TWICE EVERY DAY BEFORE A MEAL 180 capsule 1 024 Active hydroCHLOROthia zide (HYDRODiuril) 25 MG tabletIndicatio ns:Essential hypertension TAKE 1 TABLET BY MOUTH EVERY DAY 90 tablet 1 024 Active sucralfate (Carafate) 1 g tablet TAKE 1 TABLET BY ORAL ROUTE 2 TIMES EVERY DAY ON AN EMPTY STOMACH 1 HOUR BEFORE MEALS AND AT BEDTIME 180 tablet 1 024 Active Diclofenac Sodium 1 % gel APPLY 2 GRAMS BY TOPICAL ROUTE (QUANTITY DIRECTED ON PACKAGE INSERT) TO AFFECTED AREA OF PAIN 3 TIMES DAILY NEEDED. 100 g 3 024 Active irbesartan (Avapro) 150 MG tabletIndicatio ns:Essential hypertension TAKE 1 TABLET BY MOUTH EVERY DAY 90 tablet 1 025 Active famotidine (Pepcid) 20 MG tabletIndicatio ns:Lower abdominal pain TAKE 1 TABLET BY MOUTH EVERY DAY NEEDED FOR HEARTBURN 90 tablet 025 Active atenolol (Tenormin) 50 MG tabletIndicatio ns:Essential hypertension TAKE 1 TABLET BY MOUTH EVERY DAY 90 tablet 025 Active levothyroxine (Synthroid, Levoxyl) 88 MCG tablet TAKE 1 TABLET BY MOUTH EVERY DAY 90 tablet 025 Active simvastatin (Zocor) 40 MG tabletIndicatio ns:Essential hypertension Take 1 tablet (40 mg) by mouth in the evening. 90 tablet 1 025 Active Azelastine HCl 137 MCG/SPRAY solution 2 SPRAY INTRANASALLY 2 TIMES A DAY FOR 30 DAYS ADMINISTER INTO EACH NOSTRIL 025 Active dextran 70-hypromellose (artificial tears) 0.1-0.3 % ophthalmic solution Administer 1 drop into both eyes if needed in the morning, at noon, and at bedtime for dry eyes. 30 mL 11 025 2025 Active hydrocortisone 2.5 % cream Apply pea sized amount to skin bid for 1 week 15 g 025 Active traMADol (Ultram) 50 MG tabletIndicatio ns:Chronic low back pain with sciatica, sciatica laterality unspecified, unspecified back pain laterality Take 1 tablet (50 mg) by mouth every 12 (twelve) hours if needed for severe pain for up to 28 days. Do not start before July 30, 2024. 56 tablet 025 2024 Active traMADol (Ultram) 50 MG tabletIndicatio ns:Chronic low back pain with sciatica, sciatica laterality unspecified, unspecified back pain laterality Take 1 tablet (50 mg) by mouth every 12 (twelve) hours if needed for severe pain for up to 28 days. Do not start before July 01, 2024. 56 tablet 025 2024 Discontinued(R eorder (will not trigger notification to Pharmacy)) Active [...] Encounters Date Type Department Care Team Description 07/29/2024 Refill [facility] [address] [place] [phone] Name, MD Stanley Chronic low back pain with sciatica, sciatica laterality unspecified, unspecified back pain laterality 07/05/2024 1:45 PM EDT Office Visit [facility] [address] [place] [phone] Stanley Wilson MD Hypertension, unspecified type (Primary Dx); Dyslipidemia; Moderate persistent asthma without complication; Eye irritation; Right hand pain; Acquired hypothyroidism; Angular cheilitis 07/05/2024 Travel 07/01/2024 Telephone [facility] [address] [place] [address] Mercy Roman [place] chartprep 06/29/2024 Refill [facility] [address] [place] [address] Annalisa Irvin DO Lower abdominal pain; Essential hypertension 06/29/2024 Refill [facility] [address] [place] [address] [phone] Stanley Wilson MD Essential hypertension 06/28/2024 Refill [facility] [address] [place] [address] [phone] Stanley Wilson MD Chronic low back pain with sciatica, sciatica laterality unspecified, unspecified back pain laterality 06/01/2024 Refill [facility] [address] [place] [address] [phone] Stanley Wilson MD Chronic low back pain with sciatica, sciatica laterality unspecified, unspecified back pain laterality 05/26/2024 Refill [facility] [address] [place] [address] [phone] Stanley Wilson MD Essential hypertension 05/14/2024 10:30 AM EST Telemedicine [facility] [address] [place] [phone] Neida Lainez RN Chronic pain of both knees 05/14/2024 Telephone [facility] [address] [place] [address] [phone] Neida Lainez, RENETTA BPI Scoring 05/14/2024 Travel from Last 3 Months Immunizations Immunization Administration Dates Next Due Influenza High-dose Quadrivalent Preservative Fr ee 01/15/2022 Influenza injectable quadrivalent preservative f ree 12/18/2022 Pfizer Covid-19 Vaccine 12+ 11/26/2020, Pneumococcal Conjugate PCV 13 12/16/2017 Pneumococcal Polysaccharide PPSV23 02/25/2019 Tdap 12/16/2017 Social History Tobacco Use Types Packs/Day Years Used Date Smoking Tobacco: Never Passive Smoke Exposure: Never Smokeless Tobacco: Never Tobacco Cessation:Counseling Given: Not Answered Alcohol Use Standard Drinks/Week Comments Never 0 (1 standard drink = 0.6 oz pur e alcohol) Depression Answer Date Recorded Patient Health Questionnaire-9 Score 6 07/05/2024 Patient Health Questionnaire-9 Score 6 07/05/2024 Last PHQ-9: Questionnaire Data Not on file 0 07/05/2024 Housing Stability Answer Date Recorded What is your housing situation today? I have roseargelia moseley 07/05/[address] you li ve. Do you have problems with any of the following? None of the above 07/05/2024 Food Insecurity Answer Date Recorded Within the past 12 months, y ou worried that your food would run out before you got money to buy more: Never True 07/05/2024 Within the past 12 months,th e food you bought just didn't last and you didn't have enough money to get more: Never True Transportation Answer Date Recorded In the past 12 months, has l ack of transportation kept you from medical appts, meetings, work or from getting things needed for daily living? No 07/05/2024 Utilities Answer Date Recorded In the past 12 months, has t he electric, gas, oil or water company threatened to shut off services in your home? No 07/05/2024 Depression Answer Date Recorded Patient Health Questionnaire-2 Score 0 07/05/2024 Internet Access Answer Date Recorded Internet Access Q1 Yes 07/05/2024 Internet Access Q2 Not on file 07/05/2024 Comments Unknown Sex and Gender Information Value Date Recorded Sex Assigned at Female 01/21/2022 10:30 AM EDT Legal Sex Female 10:30 AM EDT Gender Identity Female 01/21/2022 10:30 AM EDT Sexual Orientation Choose not to disclose 2021 10:30 AM EDT Last Filed Vital Signs Vital Sign Reading Time Taken Comments Blood Pressure 141/69 07/05/2024 1:42 PM EDT Pulse 61 07/05/2024 1:42 PM EDT Temperature 36.7 ??C (98 ??F) 07/05/2024 1:42 PM EDT Respiratory Rate 16 07/05/2024 1:42 PM EDT Oxygen Saturation 94% 07/05/2024 1:42 PM EDT Inhaled Oxygen Concentration - - Weight 69.6 kg (153 lb 6 oz) 07/05/2024 1:42 PM EDT Height 152.4 cm (5') 07/05/2024 1:42 PM EDT Body Mass Index 29.95 07/05/2024 1:42 PM EDT Plan of Treatment Upcoming Encounters Date Type Department Care Team (Late st Contact Info) Description 10/15/2024 10:00 AM EDT Telemedicine [facility] [address] [place] [address] [phone] Neida Lainez, RN Health Maintenance Due Date Last Done Comments CT Colonography 1951 FIT DNA/Cologuard 1951 FIT 1951 FOBT 1950 Sigmoidoscopy 1951 Alcohol/Substance Use Screening 1963 Hepatitis C Screening 09/28/1969 Zoster Vaccines (1 of 2) 09/28/2001 RSV Patients and Patients Aged 60 years or older (1 - Risk 60-74 years 1-dose series) 2011 Mammogram 07/15/2020 07/15/2018, 07/14/2018, 06/06/2017 COVID-19 Vaccine (3 - 2023-2 5 season) 2023 11/26/2020, 11/05/2020 Influenza Vaccine (#1) 2023 3, 01/15/2022 Depression Screening 07/05/2025 07/05/2024, 07/05/2024 SDOH Screening 07/05/2025 07/05/2024 Tobacco Screening 07/05/2025 07/05/2024 Lipid Panel 08/16/2026 08/16/2021 Colonoscopy 07/23/2027 07/22/2017 [...] ?? Ken WOODSON et al. AZAEL. 2013;310(19): 8533-0658 ?? (http://education.Bullhorn.dakick/faq/OBP825) Non-HDL Cholesterol 110 <130 mg/dL (calc) [facility] [...] 2015;9:129-169. ?? 08/16/2021 10:0 6 AM EDT Stanley Wilson MD LAB BLOOD ORDERABLES Final Resul t [facility] [address] * DIGITAL BILATERAL SCREEN 1 (07/15/2018 [...] Most Recently Relevant to Health Maintenance Insurance [address] [place], [place] [address] [facility] COMPLETE PLUS Care Teams Can Crimper Relationship Specialty Start Date End Date Name, MD Stanley [address] [place] [phone] PCP - General Family Medicine 02/16/19 [employer] 02/08/24
--- OUTSIDE RECORDS SUMMARY | 2024-08-04 09:20 | XMS_ITS | Encounter Summary ---
Author Organization [employer] Address [address] [facility] 7 [place] [address] Care Team Providers Care It Infrastructure Architect Name Role Phone Name, Stanley FRAGOSO Primary Care Provider [phone] Encounter Details Date Type Department Care Team (Late st Contact Info) Description 08/29/2022 Orders Only [address] [address] Joya Sen LPN Social History Tobacco Use [...] Info) Description 10/15/2024 10:00 AM EDT Telemedicine [address] [phone] Neida Lainez, RENETTA documented as of this encounter Visit Diagnoses Not on filedocumented in this encounter Care Teams It Infrastructure Architect Relationship Specialty Start Date End Date Name, MD Stanley [address] [place] [phone] PCP - General Family Medicine 02/16/19 [employer] 02/08/24 documented as of this encounter
--- OUTSIDE RECORDS SUMMARY | 2024-08-04 09:20 | XMS_ITS | Encounter Summary ---
Author Organization [employer] Address [address] [facility] 7t [place] [address] Care Team Providers Care Ground Support Equipment Assembler Name Role Phone Name, Stanley FRAGOSO Primary Care Provider [phone] Reason for Visit * Reason Comments Med Refill Encounter Details Date Type Department Care Team ([facility] st Contact Info) Description 03/19/[address] [facility] [address] [place], [place] [phone] Sukhdev Meyer MD [address] [place] [address] Acute pain of right knee Social History Tobacco Use Types Packs/Day Years Used Date Smoking Tobacco: Never Smokeless Tobacco: Never Alcohol Use Standard Drinks/Week Comments Never 0 (1 standard drink = 0.6 oz pur e alcohol) Housing Stability Answer Date Recorded What is your housing situation today? I have roseargelia moseley 01/17/[address] you [...] t he electric, gas, oil or water [employer] threatened to shut off services in your [...] Info) Description 10/15/2024 10:[address] [facility] [address] [place] [address] Neida Lainez RN documented as of this encounter Visit Diagnoses Diagnosis Acute pain of right knee documented in this encounter Care Teams Ground Support Equipment Assembler Relationship Specialty Start Date End Date Name, MD Stanley [address] [place] [address] PCP - General Family Medicine 02/16/19 [employer] 02/08/24 documented as of this encounter
--- OUTSIDE RECORDS SUMMARY | 2024-08-04 09:20 | XMS_ITS | Encounter Summary ---
Author Organization [employer] Address [address] [facility] 7t [place] [address] Care Team Providers Care Mechanical Equipment Test Engineer Name Role Phone Name, Stanley FRAGOSO Primary Care Provider [phone] Encounter Details Date Type Department Care Team (Late st Contact Info) Description 05/17/2022 Orders Only [facility] [address] [place] [address] Joya Sen LPN Social History Tobacco Use [...] AM EST documented as of this encounter Functional Status * Over the past 2 weeks, how often have you been bothered by any of the following problems? Question Answer Date of Assessment Author Little interest or pleasure in doing things Not at all 05/20/2022 11:36 AM Chacha Ferrara MA Feeling down, depressed, or hopeless Not at all 05/20/2022 11:36 AM Chacha Ferrara MA Patient Health Questionnaire -2 Score 0 05/20/2022 11:36 AM Chacha Ferrara [place] documented as of this encounter Plan of Treatment Upcoming Encounters Date Type Department Care Team (Late st Contact Info) Description 10/15/2024 10:00 AM EDT Telemedicine [facility] [address] [place] [address] Neida Lainez, RENETTA documented as of this encounter Visit Diagnoses Not on filedocumented in this encounter Care Teams Mechanical Equipment Test Engineer Relationship Specialty Start Date End Date Name, MD Stanley [address] [place] [address] PCP - General Family Medicine 02/16/19 [employer] 02/08/24 documented as of this encounter
--- OUTSIDE RECORDS SUMMARY | 2024-08-04 09:20 | XMS_ITS | Encounter Summary ---
Author Organization [employer] Address [address] [facility] 7t [place] [address] Care Team Providers Care J2Ee Engineer Name Role Phone Name, Stanley FRAGOSO Primary Care Provider [phone] Encounter Details Date Type Department Care Team ([facility] Contact Info) Description 04/09/2022 Orders Only [facility] [address] [place] [address] [phone] Joya Sen LPN Social History Tobacco Use [...] Info) Description 10/15/2024 10:00 AM EDT Telemedicine [facility] [address] [place] [address] [phone] Neida Lainez RN documented as of this encounter Visit Diagnoses Not on filedocumented in this encounter Care Teams J2Ee Engineer Relationship Specialty Start Date End Date Name, MD Stanley [address] [place] [phone] PCP - General Family Medicine 11/26/19 [employer] 02/08/24 documented as of this encounter
--- OUTSIDE RECORDS SUMMARY | 2024-08-04 09:20 | XMS_ITS | Encounter Summary ---
Author Organization [employer] Address [address] [facility] 7 [place] [address] Care Team Providers Care Learning Design Specialist Name Role Phone Name, Stanley FRAGOSO Primary Care Provider [phone] Encounter Details Date Type Department Care Team ([facility] Contact Info) Description 08/23/[address] [facility] [address] [place] [phone] Name, MD Stanley [address] [place] [address] [phone] Social History Tobacco Use Types Packs/Day Years [...] Description 10/15/2024 10:[address] [facility] [address] [place] [address] [phone] Neida Lainez RN documented as of this encounter Visit Diagnoses Not on filedocumented in this encounter Care Teams Learning Design Specialist Relationship Specialty Start Date End Date Name, MD Stanley [address] [place] [address] [phone] PCP - General Family Medicine 02/16/19 [employer] 02/08/24 documented as of this encounter
--- OUTSIDE RECORDS SUMMARY | 2024-08-04 09:20 | XMS_ITS | Encounter Summary ---
Author Organization [employer] Address [address] [facility] 7t [place] [address] Care Team Providers Care Regional Service Manager Name Role Phone Name, Stanley FRAGOSO Primary Care Provider [phone] Reason for Visit * Reason Onset Date Comments Medication Question 08/06/2022 Encounter Details Date Type Department Care Team ([facility] st Contact Info) Description 08/06/2022 Telephone [facility] [address] [place], [place] [phone] Name, MD Stanley [address] [place] [address] Medication Question Social History Tobacco Use Types [...] on medication for tramadol. Please contact at [phone] Eritrean * Telephone Encounter - Sarah Kelley RN - 08/08/2022 10:05 AM EDT Placed call to [facility] Colorectal surgeon regarding message below. Advised Peggy that ASA is not indicated for pt if pt has no hx of DC, CVA, or stent placement. Peggy stated she [...] Please review message below as PCP off. [facility] colorectal requesting if pt should be on a daily ASA aspt platelets were elevated * Telephone Encounter - Tresa Agosto - 08/06/2022 9:59 AM EDT Tc from Peggy at [facility] Colorectal Surgery Dept calling in regards to patient having surgery with them on 07/22/22 and patient being week. They had patient get blood work where her platelets were high. Peggy is inquiring if it's okay for patient to be on daily aspiring. Please call [phone]. documented in this encounter Plan of Treatment Upcoming Encounters Date Type Department Care Team (Late st Contact Info) Description 10/15/2024 10:00 AM EDT Telemedicine [facility] [address] [place] [address] Neida Lainez RN documented as of this encounter Visit Diagnoses Not on filedocumented in this encounter Care Teams Regional Service Manager Relationship Specialty Start Date End Date Name, MD Stanley [address] [place] [address] PCP - General Family Medicine 02/16/19 [employer] 02/08/24 documented as of this encounter
--- OUTSIDE RECORDS SUMMARY | 2024-08-04 09:20 | XMS_ITS | Encounter Summary ---
Author Organization [employer] Address [address] [facility] 7t [place] [address] Care Team Providers Care Office Specialist Name Role Phone Name, Stanley FRAGOSO Primary Care Provider [phone] Reason for Visit * Reason Comments Med Refill Encounter Details Date Type Department Care Team ([facility] st Contact Info) Description 02/20/2023 Refill [facility] [address] [place], [place] [phone] Sukhdev Meyer MD [address] [place] [address] Acute pain of right knee Social History [...] t he electric, gas, oil or water [employer] threatened to shut off services in your [...] Info) Description 10/15/2024 10:00 AM EDT Telemedicine [facility] [address] [place] [address] Neida Lainez RN documented as of this encounter Visit Diagnoses Diagnosis Acute pain of right knee documented in this encounter Care Teams Office Specialist Relationship Specialty Start Date End Date Name, MD Stanley [address] [place] [address] PCP - General Family Medicine 02/16/19 [employer] 02/08/24 documented as of this encounter
--- OUTSIDE RECORDS SUMMARY | 2024-08-04 09:21 | XMS_ITS | Encounter Summary ---
Author Organization [employer] Address [address] [facility] 7t [place] [address] Care Team Providers Care Vending Machine Servicer Name Role Phone Name, Stanley FRAGOSO Primary Care Provider [phone] Reason for Visit * Reason Onset Date Comments Appointment Request 07/04/2023 Encounter Details Date Type Department Care Team ([facility] st Contact Info) Description 07/04/2023 Telephone [facility] [address] [place] [address] Name, MD Stanley [address] [place] [address] Appointment Request Social History Tobacco Use Types [...] the past 12 months, has t he [employer], oil or water company threatened to shut [...] Info) Description 10/15/2024 10:00 AM EDT Telemedicine [facility] [address] [place] [address] Neida Lainez, RENETTA documented as of this encounter Visit Diagnoses Not on filedocumented in this encounter Care Teams Vending Machine Servicer Relationship Specialty Start Date End Date Name, MD Stanley [address] [place] [address] PCP - General Family Medicine 02/16/19 [employer] 02/08/24 documented as of this encounter
--- OUTSIDE RECORDS SUMMARY | 2024-08-04 09:21 | XMS_ITS | Encounter Summary ---
Author Organization [employer] Address [address] [facility] 7t [place] [address] Care Team Providers Care Preschool Assistant Name Role Phone Name, Stanley FRAGOSO Primary Care Provider [phone] Reason for Visit * Reason Onset Date Comments Med Refill 06/30/2023 Acute pain - right knee arthroscopy 05/30/2306/29 Encounter Details Date Type Department Care Team (Late st Contact Info) Description 06/30/2023 Telephone [facility] [address] [place] [address] Name, MD Stanley [address] [place], [place] [phone] Med Refill; Acute pain - right knee [...] 50 MG tablet To be sent to: [facility] #[id number] - [place], [place] - [address] [facility] documented in this encounter Plan of Treatment Upcoming Encounters Date Type Department Care Team (Late st Contact Info) Description 10/15/2024 10:00 AM EDT Telemedicine [facility] [address] [place] [phone] Neida Lainez RN documented as of this encounter Visit Diagnoses Not on filedocumented in this encounter Care Teams Preschool Assistant Relationship Specialty Start Date End Date Name, MD Stanley [address] [place] [address] PCP - General Family Medicine 02/16/19 [employer] 02/08/24 documented as of this encounter
[2024-08-04 10:57] LABS: MANUAL DIFF FLAG NO
[2024-08-04 11:04] LABS: Basophils Percent Auto 0.2 % (0-2); Hematocrit 29.3 % (37.0-47.0); Hemoglobin 8.7 g/dl (12.0-16.0); Imm Gran Abs Auto 0.02 X10*3/uL (0.00-0.03); Imm Gran Pct Auto 0.3 % (0.0-0.4); Lymphocytes Absolute Auto 1.5 X10*3/uL (1.2-4.9); Lymphocytes Percent Auto 25.2 % (20-40); Mean Corpuscular HGB Conc 29.7 g/dl (31.0-35.0); Mean Corpuscular Hemoglobin 23.3 pg (27.0-33.0); Mean Corpuscular Volume 78.3 fL (80.0-98.0); Mean Platelet Volume 10.1 fL (9.4-12.3); Monocytes Absolute Auto 0.6 X10*3/uL (0.1-1.2); Monocytes Percent Auto 9.1 % (2-11); Neutrophils Absolute Auto 3.9 x10*3/uL (2.0-8.3); Neutrophils Percent Auto 65.2 % (45-73); Platelet Count 414 X10*3/uL (160-400); Red Blood Count 3.74 X10*6/uL (4.20-5.50); Red Cell Distribution Width 15.9 % (11.0-16.0)
[2024-08-04 11:41] LABS: Alanine Aminotransferase 9 U/L (0-31); Albumin Level 3.6 g/dL (3.5-5.0); Alkaline Phosphatase 80 U/L (39-117); Anion Gap 14 (12-20); Aspartate Amino Transferase 16 U/L (5-31); Bilirubin Total 0.3 mg/dL (0.0-1.0); Blood Urea Nitrogen 19 mg/dL (9-16); Calcium 8.8 mg/dL (8.4-10.2); Carbon Dioxide 24 mmol/L (22-29); Chloride 107 mmol/L (96-108); Cholesterol 184 mg/dL (<200); Estimated Glomerular Filt Rate > 60; Glucose Random 86 mg/dL (60-115); HDL Cholesterol 58 mg/dL (>40); LDL Cholesterol Calculated 95 mg/dL (<100); Potassium 3.9 mmol/L (3.3-5.1); Sodium 141 mmol/L (135-145); Triglycerides 156 mg/dL (<150)
== END 2024-08-04 08:56 | disposition home or self-care (01) ==
LOC: HO.HHCL 08:55
PROVIDERS: Visit Provider Internal Medicine Geriatric Medicine
DX: I10 Essential (primary) hypertension (principal); E03.9 Hypothyroidism, unspecified; E78.5 Hyperlipidemia, unspecified
CPT/HCPCS: 36415; 80053; 80061; 84443; 85025

== ENCOUNTER 2024-08-05 10:22 | Outpatient (REF) | payer MEDICARE, MEDICAID, SELFPAY ==
--- OUTSIDE RECORDS SUMMARY | 2024-08-05 11:28 | XMS_ITS | Encounter Summary ---
Author Organization [employer] Address [address] [facility] 7t [place] [address] Care Team Providers Care Mobile Electronics Installer Name Role Phone Name, Stanley FRAGOSO Primary Care Provider [phone] Encounter Details Date Type Department Care Team ([facility] Contact Info) Description 04/09/2022 Orders Only [facility] [address] [place] [address] [phone] Joya Sen LPN Social History Tobacco Use [...] Info) Description 10/15/2024 10:00 AM EDT Telemedicine [facility] [address] [place] [address] [phone] Neida Lainez RN documented as of this encounter Visit Diagnoses Not on filedocumented in this encounter Care Teams Mobile Electronics Installer Relationship Specialty Start Date End Date Name, MD Stanley [address] [place] [phone] PCP - General Family Medicine 11/26/19 [employer] 02/08/24 documented as of this encounter
--- OUTSIDE RECORDS SUMMARY | 2024-08-05 11:28 | XMS_ITS | Encounter Summary ---
Author Organization [employer] Address [address] [facility] 7t [place] [address] Care Team Providers Care Group Manager Name Role Phone Name, Stanley FRAGOSO Primary Care Provider [phone] Reason for Visit * Reason Onset Date Comments Appointment Request 07/04/2023 Encounter Details Date Type Department Care Team ([facility] st Contact Info) Description 07/04/2023 Telephone [facility] [address] [place] [address] Name, MD Stanley [address] [place] [address] Appointment Request Social History Tobacco Use Types [...] the past 12 months, has t he [employer], oil or water company threatened to shut [...] Info) Description 10/15/2024 10:00 AM EDT Telemedicine [facility] [address] [place] [address] Neida Lainez, RENETTA documented as of this encounter Visit Diagnoses Not on filedocumented in this encounter Care Teams Group Manager Relationship Specialty Start Date End Date Name, MD Stanley [address] [place] [address] PCP - General Family Medicine 02/16/19 [employer] 02/08/24 documented as of this encounter
--- OUTSIDE RECORDS SUMMARY | 2024-08-05 11:28 | XMS_ITS | Encounter Summary ---
Author Organization [employer] Address 75 [facility] 7t [place] [address] Care Team Providers Care Embroidery Machine Operator Name Role Phone Name, Stanley FRAGOSO Primary Care Provider Encounter Details Date Type Department Care Team (Latest Contact Info) Description 08/04/2024 Results Follow-Up [facility] [address] [place], [place] [phone] Name, MD Stanley [address] [place] [address] CBC auto differential, Comprehensive Metabolic Panel, TSH W/Reflex to FT4, Lipid Panel, Standard Social History Tobacco Use Types Packs/Day Years Used Date Smoking Tobacco: Never Passive Smoke Exposure: Never Smokeless Tobacco: Never Alcohol Use Standard Drinks/Week Comments Never 0 (1 standard drink = 0.6 oz pur e alcohol) Depression Answer Date Recorded Patient Health Questionnaire-9 Score 6 07/05/2024 Patient Health Questionnaire-9 Score 6 07/05/2024 Last PHQ-9: Questionnaire Data Not on file 0 07/05/2024 Housing Stability Answer Date Recorded What is your housing situation today? I have rose moseley 07/05/[address] you [...] encounter Miscellaneous Notes * Telephone Encounter - Leticia Oneil - 08/04/2024 3:02 PM EDT Tc from pt to let the nurse know that she remembered that she was tested in [place] and the result was that her body does not produce several vitamins. For any clarification call the pt at [phone] * Telephone Encounter - Karon Mendez RN - 08/04/2024 2:20 PM EDT T/C to pt via [employer] #[id number]. Advised of message from PCP re: persistent anemia andpoc. Pt verbalized understanding. States she will brick picker iron supplement from pharmacy and come tolab for further testing. Pt states she is concerned because she used to have pain with iron pills s/t stomach hernia. Recommended that pt take medication with food and discuss concerns with pharmacist. Pt reports agreement with plan. * Telephone Encounter - Karon Mendez RN - 08/04/2024 2:09 PM EDT ----- Message from Stanley Wilson MD sent at 08/04/2024 1:06 PM EDT ----- Please call the patient. 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 I recommend to start iron supplements daily. I would like her to come to the lab to check iron studies and ferritin. I would like to recheck her studies in a couple of months to make sure she is responding to the iron supplementation. ----- Message ----- From: Interface, Lab Results In Sent: 08/04/2024 11:05 AM EDT To: Stanley Wilson MD documented in this encounter Plan of Treatment Upcoming Encounters Date Type Department Care Team (Late st Contact Info) Description 10/15/2024 10:00 AM EDT Telemedicine [facility] [address] [place] [phone] Neida Lainez, RN Scheduled Orders Name Type Priority Associated Diagnoses Orde r Schedule Ferritin Lab Routine Microcytic anemia Expected: 08/04/2024, Expires: 08/04/2025 Iron And Total Iron Binding Capacity Lab Routine Microcytic anemia Expected: 08/04/2024, Expires: 08/04/2025 documented as of this encounter Visit Diagnoses Diagnosis Microcytic anemia- Primary Unspecified iron deficiency anemia documented in this encounter Additional Health Concerns Assessment Noted Time PHQ-9 Depression Total Score: 6 07/06/19 25 1:57 PM EDT documented as of this encounter Care Teams Embroidery Machine Operator Relationship Specialty Start Date End Date Stanley Wilson MD [address] [place] [id number] PCP - General Family Medicine 02/16/19 [employer] 02/08/24 documented as of this encounter
--- OUTSIDE RECORDS SUMMARY | 2024-08-05 11:28 | XMS_ITS | Encounter Summary ---
Author Organization [employer] Address 75 [facility] 7t [place] [address] Care Team Providers Care Apricot Washer Name Role Phone Name, Stanley FRAGOSO Primary Care Provider [phone] Reason for Visit * Reason Comments Med Refill Encounter Details Date Type Department Care Team ([facility] st Contact Info) Description 12/03/2023 Refill [facility] [address] [place], [place] [phone] Name, MD Stanley [address] [place] [address] Chronic bilateral low back pain, unspecified whether [...] Info) Description 10/15/2024 10:00 AM EDT Telemedicine [facility] [address] [place] [address] Neida Lainez, RN documented as of this encounter Visit Diagnoses Diagnosis Chronic bilateral low back pain, unspecified whether sciatica present DJD (degenerative joint disease), 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
--- OUTSIDE RECORDS SUMMARY | 2024-08-05 11:28 | XMS_ITS | Encounter Summary ---
Author Organization [employer] Address 75 [facility] 7t [place] [address] Care Team Providers Care Laundry Superintendent Name Role Phone Name, Stanley FRAGOSO Primary Care Provider [phone] Reason for Visit * Reason Comments Med Refill Encounter Details Date Type Department Care Team ([facility] st Contact Info) Description 02/20/2023 Refill [facility] [address] [place], [place] [phone] Sukhdev Meyer MD [address] [place] [address] Acute pain of right knee Social History [...] t he electric, gas, oil or water [employer] threatened to shut off services in your [...] Info) Description 10/15/2024 10:00 AM EDT Telemedicine [facility] [address] [place] [address] Neida Lainez RN documented as of this encounter Visit Diagnoses Diagnosis Acute pain of right knee documented in this encounter Care Teams Laundry Superintendent Relationship Specialty Start Date End Date Name, MD Stanley [address] [place] [address] PCP - General Family Medicine 02/16/19 [employer] 02/08/24 documented as of this encounter
--- OUTSIDE RECORDS SUMMARY | 2024-08-05 11:28 | XMS_ITS | Encounter Summary ---
Author Organization [employer] Address 75 [facility] 7 [place] [address] Care Team Providers Care Bundle Collector Name Role Phone Name, Stanley FRAGOSO Primary Care Provider [phone] Encounter Details Date Type Department Care Team ([facility] Contact Info) Description 08/23/2022 Abstract [facility] [address] [place] [phone] Name, MD Stanley [address] [place] [address] [phone] Social History Tobacco Use Types Packs/Day Years [...] Info) Description 10/15/2024 10:00 AM EDT Telemedicine [facility] [address] [place] [address] [phone] Neida Lainez RN documented as of this encounter Visit Diagnoses Not on filedocumented in this encounter Care Teams Bundle Collector Relationship Specialty Start Date End Date Name, MD Stanley [address] [place] [address] [phone] PCP - General Family Medicine 02/16/19 [employer] 02/08/24 documented as of this encounter
--- OUTSIDE RECORDS SUMMARY | 2024-08-05 11:28 | XMS_ITS | Encounter Summary ---
Author Organization [employer] Address 75 [facility] 7 [place] [address] Care Team Providers Care Digital Account Executive Name Role Phone Name, Stanley FRAGOSO Primary Care Provider [phone] Reason for Visit * Reason Onset Date Comments Medication Question 08/06/2022 Encounter Details Date Type Department Care Team ([facility] st Contact Info) Description 08/06/2022 Telephone [facility] [address] [place], [place] [phone] Name, MD Stanley [address] [place] [address] Medication Question Social History Tobacco Use Types [...] on medication for tramadol. Please contact at [phone] Welsh * Telephone Encounter - Sarah Kelley RN - 08/08/2022 10:05 AM EDT Placed call to [facility] Colorectal surgeon regarding message below. Advised Peggy that ASA is not indicated for pt if pt has no hx of MT, CVA, or stent placement. Peggy stated she [...] Please review message below as PCP off. [facility] colorectal requesting if pt should be on a daily ASA aspt platelets were elevated * Telephone Encounter - Tresa Agosto - 08/06/2022 9:59 AM EDT Tc from Peggy at [facility] Colorectal Surgery Dept calling in regards to patient having surgery with them on 07/22/22 and patient being week. They had patient get blood work where her platelets were high. Peggy is inquiring if it's okay for patient to be on daily aspiring. Please call [phone]. documented in this encounter Plan of Treatment Upcoming Encounters Date Type Department Care Team (Late st Contact Info) Description 10/15/2024 10:00 AM EDT Telemedicine [facility] [address] [place] [address] Neida Lainez RN documented as of this encounter Visit Diagnoses Not on filedocumented in this encounter Care Teams Digital Account Executive Relationship Specialty Start Date End Date Name, MD Stanley [address] [place] [address] PCP - General Family Medicine 02/16/19 [employer] 02/08/24 documented as of this encounter
--- OUTSIDE RECORDS SUMMARY | 2024-08-05 11:28 | XMS_ITS | Encounter Summary ---
Author Organization [employer] Address 75 [facility] 7t [place] [address] Care Team Providers Care Public Relations Supervisor Name Role Phone Name, Stanley FRAGOSO Primary Care Provider [phone] Reason for Visit * Reason Comments Med Refill Encounter Details Date Type Department Care Team ([facility] st Contact Info) Description 03/19/2023 Refill [facility] [address] [place], [place] [phone] Sukhdev Meyer MD [address] [place] [address] Acute pain of right knee Social History [...] t he electric, gas, oil or water [employer] threatened to shut off services in your [...] Info) Description 10/15/2024 10:00 AM EDT Telemedicine [facility] [address] [place] [address] Neida Lainez RN documented as of this encounter Visit Diagnoses Diagnosis Acute pain of right knee documented in this encounter Care Teams Public Relations Supervisor Relationship Specialty Start Date End Date Name, MD Stanley [address] [place] [address] PCP - General Family Medicine 02/16/19 [employer] 02/08/24 documented as of this encounter
--- OUTSIDE RECORDS SUMMARY | 2024-08-05 11:28 | XMS_ITS | Encounter Summary ---
Author Organization [facility] Address [address] [place] [address] Care Team Providers Care Classroom Monitor Name Role Phone Alejandro Britton MD Primary Care Provider [phone] Encounter Details Date Type Department Care Team (Late st Contact Info) Description 01/27/2024 Lab Requisition [facility] [address] [place] [address] Alejandro Britton MD [address] [place] [address] Anemia, unspecified Social History Tobacco Use Types [...] Travel phlebotomy fee (01/27/2024 5:10 AM EST) [facility] TRAVEL PHLEBOTOMY FEE Completed 01/27/2024 9:[address] [facility] Blood Venous blood specimen / Unknown Venipuncture / Unknown 01/27/2024 5:10 AM EST 01/27/2024 8:35 AM EST Alejandro Britton MD LAB BLOOD ORDERABLES Final Resul t [facility] [address] [place] [address], [place] [phone] * Basic metabolic panel (01/27/2024 5:10 AM EST) Sodium 140 133 - 145 mmol/L LAB CHEMISTRY METHOD 01/27/2024 10:23 AM [facility] Potassium 4.3 3.5 - 5.5 mmol/L LAB CHEMISTRY METHOD 01/27/2024 10:23 AM [facility] Chloride 105 96 - 110 mmol/L LAB CHEMISTRY METHOD 01/27/2024 10:23 AM [facility] CO2 31 21 - 32 mmol/L LAB CHEMISTRY METHOD 01/27/2024 10:23 AM [facility] Anion Gap 4 3 - 11 LAB CHEMISTRY METHOD 01/27/2024 10:23 AM [facility] Glucose 87 70 - 100 mg/dL LAB CHEMISTRY METHOD 01/27/2024 10:23 AM [facility] BUN 16 5 - 25 mg/dL LAB CHEMISTRY METHOD 01/27/2024 10:23 AM [facility] Creatinine 0.62 0.50 - 1.10 mg/dL LAB CHEMISTRY METHOD 01/27/2024 10:23 AM [facility] eGFR 95 >=60 mL/min/1. 73m2 LAB CHEMISTRY METHOD 01/27/2024 10:23 AM [facility] Comment:Calculation based on the??Chronic Kidney Disease Epidemiology Collaboration (CKD-EPI) equation refit??without adjustment for race. BUN/Creatinine Ratio 25.8 LAB CHEMISTRY METHOD 01/27/2024 10:23 AM [facility] Calcium 8.8 8.5 - 10.5 mg/dL LAB CHEMISTRY METHOD 01/27/2024 10:23 AM [facility] Blood Venous blood specimen / Unknown Venipuncture / Unknown 01/27/2024 5:10 AM EST 01/27/2024 8:35 AM EST us Alejandro Britton MD LAB BLOOD ORDERABLES Final Resul t [facility] [address] [place] [address], [place] [phone] * (ABNORMAL) Complete blood count (01/27/2024 5:10 AM EST) WBC 7.6 4.8 - 10.8 K/mcL LAB HEMETOLOGY METHOD 01/27/2024 9:59 AM [facility] RBC 3.10(L) 3.80 - 4.80 M/[facility] LAB HEMETOLOGY METHOD 01/27/2024 9:59 AM [facility] Hemoglobin 7.5(L) 11.5 - 16.0 g/dL LAB HEMETOLOGY METHOD 01/27/2024 9:59 AM [facility] Hematocrit 25.2(L) 35.0 - 47.0 % LAB HEMETOLOGY METHOD 01/27/2024 9:59 AM [facility] MCV 82.6 79.0 - 98.0 FL LAB HEMETOLOGY METHOD 01/27/2024 9:59 AM [facility] MCH 24.6(L) 27.0 - 32.0 pcg LAB HEMETOLOGY METHOD 01/27/2024 9:59 AM [facility] MCHC 29.8(L) 32.0 - 37.0 g/dL LAB HEMETOLOGY METHOD 01/27/2024 9:59 AM [facility] RDW 15.2(H) 11.0 - 15.0 % LAB HEMETOLOGY METHOD 01/27/2024 9:59 AM EST [facility] Platelets 309 130 - 400 K/mcL LAB HEMETOLOGY METHOD 01/27/2024 9:59 AM EST [facility] MPV 10.4 7.0 - 11.0 FL LAB HEMETOLOGY METHOD 01/27/2024 9:59 AM EST [facility] NRBC 0.0 <1.0 % LAB HEMETOLOGY METHOD 01/27/2024 9:59 AM [facility] NRBC Absolute 0.00 <0.10 K/mcL LAB HEMETOLOGY METHOD 01/27/2024 9:59 AM [facility] Blood Venous blood specimen / Unknown Venipuncture / Unknown 01/27/2024 5:10 AM EST 01/27/2024 8:35 AM EST us Alejandro Britton MD LAB BLOOD ORDERABLES Final Resul t [facility] [address] [place] [address], documented in this encounter Visit Diagnoses Diagnosis Anemia, unspecified documented in this encounter Care Teams Classroom Monitor Relationship Specialty Start Date End Date Alejandro Britton MD [address] [place] [address] [address] [place] [address] PCP - General Geriatric Medicine 01/28/24 documented as of this encounter
--- OUTSIDE RECORDS SUMMARY | 2024-08-05 11:28 | XMS_ITS | Encounter Summary ---
Author Organization [employer] Address [address] [facility] [address] [place] [address] Care Team Providers Care Air Filler Name Role Phone Name, Stanley FRAGOSO Primary Care Provider [phone] Encounter Details Date Type Department Care Team (Late st Contact Info) Description 08/29/2022 Orders Only [address] [address] Joay Sen LPN Social History Tobacco Use Types [...] Info) Description 10/15/2024 10:00 AM EDT Telemedicine [address] [phone] Neida Lainez, RENETTA documented as of this encounter Visit Diagnoses Not on filedocumented in this encounter Care Teams Air Filler Relationship Specialty Start Date End Date Name, MD Stanley [address] [place] [address] PCP - General Family Medicine 02/16/19 [employer] 02/08/24 documented as of this encounter
--- OUTSIDE RECORDS SUMMARY | 2024-08-05 11:28 | XMS_ITS | Clinical Summary ---
Author Organization [employer] Address [address] [facility] 7t [place] [address] Care Team Providers Care Pediatric Dental Assistant Name Role Phone Name, Stanley FRAGOSO Primary Care Provider [phone] Allergies Active Allergy Reactions Criticality Noted Date [...] 200-25 MCG/ACT aerosol powder 023 Active Umeclidinium [place] (Incruse Ellipta) 62.5 MCG/ACT aerosol powder Inhale [...] 30, 2024. 56 tablet 025 2024 Active ferrous sulfate (Fe Tabs) 325 (65 Fe) MG EC tablet Take 1 tablet (325 mg) by mouth with breakfast. Do not crush, chew, or split. 30 tablet 2 025 2025 Active traMADol (Ultram) 50 MG tabletIndicatio ns:Chronic [...] Encounters Date Type Department Care Team Description 08/04/2024 Results Follow-Up [facility] [address] [facility] [place] [address] Stanley Wilson MD CBC auto differential, Comprehensive Metabolic Panel, TSH W/Reflex to FT4, Lipid Panel, Standard 07/29/2024 Refill [facility] [address] [facility] [place] [address] Stanley Wilson MD Chronic low back pain with sciatica, sciatica laterality unspecified, unspecified back pain laterality 07/05/2024 1:45 PM EDT Office Visit [facility] [address] [facility] [place] [address] Stanley Wilson MD Hypertension, unspecified type (Primary Dx); Dyslipidemia; Moderate persistent asthma without complication; Eye irritation; Right hand pain; Acquired hypothyroidism; Angular cheilitis 07/05/2024 Travel 07/01/2024 Telephone [facility] [address] [place] [phone] Mercy Roman [place] chartprep 06/29/2024 Refill [facility] 230 [place] [address] Annalisa Irvin DO Lower abdominal pain; Essential hypertension 06/29/2024 Refill [facility] [address] [place] [address] Stanley Wilson MD Essential hypertension 06/28/2024 Refill [facility] [address] [place] [address] Stanley Wilson MD Chronic low back pain with sciatica, sciatica laterality unspecified, unspecified back pain laterality 06/01/2024 Refill [facility] [address] [place] [address] Stanley Wilson MD Chronic low back pain with sciatica, sciatica laterality unspecified, unspecified back pain laterality 05/26/2024 Refill [facility] 230 [place] [address] Stanley Wilson MD Essential hypertension 05/14/2024 10:30 AM EST Telemedicine [facility] [address] [place] [address] Neida Lainez, top polisher pain of both knees 05/14/2024 Telephone [facility] [address] [place], [place] [phone] Neida Lainez, RN BPI Scoring 05/14/2024 Travel from Last 3 [...] Description 10/15/2024 10:00 AM EDT Telemedicine [facility] [address] [place] [address] [phone] Neida Lainez, RN Health Maintenance Due Date [...] 11/05/2020 Influenza Vaccine (#1) 2023 , 01/15/2022 Depression Screening 07/05/2025 07/05/2024, 07/05/2024 SDOH Screening 07/05/2025 07/05/2024 Tobacco Screening 07/05/2025 07/05/2024 Colonoscopy 07/23/2027 07/22/2017 Colorectal Cancer Screening 07/23/2027 DTaP/Tdap/Td Vaccines (2 - T d or Tdap) 12/17/2027 12/16/2017 Lipid Panel 08/04/2029 08/04/2024, 08/16/2021 Pneumococcal Vaccine: 50+ Years Completed 08/08/2023, 02/25/2019, [...] age to complete this topic Meningococcal B Vaccine Aged Out No l onger eligible based on patient's age to complete [...] Associated Diagnosis Comments LIPID PANEL, STANDARD Routine 08/04/2024 8:57 AM EDT Dyslipidemia TSH W/REFLEX TO FT4 Routine 08/04/2024 8 :57 AM EDT Acquired hypothyroidism COMPREHENSIVE METABOLIC PANEL Routine 08/04/2024 8:57 AM EDT Hypertension, unspecified type CBC WITH AUTO DIFFERENTIAL Routine 08/04/2024 8:57 AM EDT Hypertension, unspecified type BI MAMMOGRAM SCREENING BILATERAL Routine 07/15/2018 1:13 PM EDT HM COLONOSCOPY Routine 07/22/2017 from Last 3 Months or Most Recently Relevant to Health Maintenance Results * TSH W/Reflex to FT4 (08/04/2024 8:57 AM EDT) TSH reflex Free T4 1.90 0.32 - 4.0 uIU/mL [facility] Blood Venous blood specimen / Unknown 08/04/2024 8:57 AM EDT 08/04/2024 10:54 AM EDT us Stanley Wilson MD LAB BLOOD ORDERABLES Final Resul t [facility] [address] [place], [place] [phone] * (ABNORMAL) CBC auto differential (08/04/2024 8:57 AM EDT) White Blood Count 6.0 4.8 - 10.8 X10*3/uL [facility] Red Blood Count 3.74(L) 4.20 - 5.50 X10*6/uL [facility] Hemoglobin 8.7(L) 12.0 - 16.0 g/dl [facility] Hematocrit 29.3(L) 37.0 - 47.0 % [facility] Mean Corpuscular Volume 78.3(L) 80.0 - 98.0 fL [facility] Mean Corpuscular Hemoglobin 23.3(L) 27.0 - 33.0 pg [facility] Mean Corpuscular HGB Conc 29.7(L) 31.0 - 35.0 g/dl [facility] Red Cell Distribution Width 15.9 11.0 - 16.0 % [facility] Platelet Count 414(H) 160 - 400 X10*3/uL [facility] Mean Platelet Volume 10.1 9.4 - 12.3 fL [facility] Neutrophils Percent Auto 65.2 45 - 73 % [facility] Imm Gran Pct Auto 0.3 0.0 - 0.4 % [facility] Lymphocytes Percent Auto 25.2 20 - 40 % [facility] Monocytes Percent Auto 9.1 2 - 11 % [facility] Eosinophils Percent Auto 0.0 0 - 4 % [facility] Basophils Percent Auto 0.2 0 - 2 % [facility] NRBC Pct Auto 0.0 0.0 - 0.2 /100WBC [facility] Neutrophils Absolute Auto 3.9 2.0 - 8.3 x10*3/uL [facility] Imm Gran Abs Auto 0.02 0.00 - 0.03 X10*3/uL [facility] Lymphocytes Absolute Auto 1.5 1.2 - 4.9 X10*3/uL [facility] Monocytes Absolute Auto 0.6 0.1 - 1.2 X10*3/uL [facility] Eosinophils Absolute Auto 0.0 0.0 - 0.4 X10*3/uL [facility] Basophils Absolute Auto 0.0 0.0 - 0.2 X10*3/uL [facility] NRBC Abs Auto 0.000 0.0 - 0.012 X10*3/uL [facility] Blood Venous blood specimen / Unknown 08/04/2024 8:57 AM EDT 08/04/2024 10:54 AM EDT us Stanley Name LAB BLOOD ORDERABLES Final Resul t [facility] [address] [place] [address] [phone] * (ABNORMAL) Lipid Panel, Standard (08/04/2024 8:57 AM EDT) Triglycerides 156(H) <150 mg/dL [facility] Comment:Desirable Triglyceri de: less than 150 mg/dLBorderline High Triglyceride 150-199 mg/dLHigh Triglyceride: 200-499 mg/dLVery High Triglyceride: greater than or equal to 5OO mg/dL Cholesterol 184 <200 mg/dL [facility] Comment:Desirable Cholestero l: less than 200 mg/dLBorderline High Cholesterol: 200-239 mg/dLHigh Cholesterol: greater than 239 mg/dL LDL Cholesterol Calculated 95 <100 mg/dL [facility] Comment:Desirable LDL: less than 100 mg/dLNear Optimal/Above Optimal LDL: 110- 129 mg/dLBorderline High LDL: 130-159 mg/dLHigh LDL: 160-189 mg/dLVery High LDL: greater than or equal to 190 mg/dL HDL Cholesterol 58 >40 mg/dL [facility] Comment:Desirable HDL: great er than 40 mg/dL Note: This HDL assay may give artificially low results in patients with liver disease. Blood Venous blood specimen / Unknown 08/04/2024 8:57 AM EDT 08/04/2024 10:54 AM EDT us Stanley Name MD LAB BLOOD ORDERABLES Final Resul t [facility] [address] [place] [address] [phone] * (ABNORMAL) Comprehensive Metabolic Panel (08/04/2024 8:57 AM EDT) Sodium 141 135 - 145 mmol/L [facility] Potassium 3.9 3.3 - 5.1 mmol/L [facility] Chloride 107 96 - 108 mmol/L [facility] Carbon Dioxide 24 22 - 29 mmol/L [facility] Anion Gap 14 12 - 20 [facility] Urea Nitrogen (BUN) 19(H) 9 - 16 mg/dL [facility] Creatinine, Serum 0.74 0.5 - 1.4 mg/dL [facility] Estimated Glomerular Filt Rate >60 [facility] Comment:Chronic Kidney Disea se: Estimated GFR < 60 mL/min/1.02v5Korhnd Kidney Disease: Estimated GFR < 15 mL/min/1.73m2 Glucose 86 60 - 115 mg/dL [facility] Calcium 8.8 8.4 - 10.2 mg/dL [facility] Bilirubin, Total 0.3 0.0 - 1.0 mg/dL [facility] Aspartate Amino Transferase 16 5 - 31 U/L [facility] Alanine Aminotransferase 9 0 - 31 U/L [facility] Total Protein 7.0 6.5 - 8.0 g/dL [facility] Albumin Level 3.6 3.5 - 5.0 g/dL [facility] Alkaline Phosphatase 80 39 - 117 U/L [facility] Blood Venous blood specimen / Unknown 08/04/2024 8:57 AM EDT 08/04/2024 10:54 AM EDT Stanley Wilson MD LAB BLOOD ORDERABLES Final Resul t [facility] [address] [place] [address] [phone] * DIGITAL BILATERAL SCREEN 1 (07/15/2018 1:13 [...] Most Recently Relevant to Health Maintenance Insurance [place] [place] [id number] [facility] PL[facility] Care Teams Pediatric Dental Assistant Relationship Specialty Start Date End Date Name, MD Stanley [address] [place] [phone] PCP - General Family Medicine 02/16/19 [employer] 02/08/24
--- OUTSIDE RECORDS SUMMARY | 2024-08-05 11:28 | XMS_ITS | Encounter Summary ---
Author Organization [employer] Address [address] [facility] 7t [place] [address] Care Team Providers Care Mrb Engineer Name Role Phone Name, Stanley FRAGOSO Primary Care Provider [phone] Reason for Visit * Reason Onset Date Comments Med Refill 06/30/2023 Acute pain - right knee arthroscopy 05/30/2306/29 Encounter Details Date Type Department Care Team (Late st Contact Info) Description 06/30/[address] [facility] 230 [place] [address] Name, MD Stanley [address] [place], [place] [phone] Med Refill; Acute pain - right knee [...] 50 MG tablet To be sent to: [facility]/pharmacy #[id number] - [place], [place] - [address] [facility] documented in this encounter Plan of Treatment Upcoming Encounters Date Type Department Care Team (Late st Contact Info) Description 10/15/2024 10:[address] [facility] [address] [place] [phone] Neida Lainez RN documented as of this encounter Visit Diagnoses Not on filedocumented in this encounter Care Teams Mrb Engineer Relationship Specialty Start Date End Date Name, MD Stanley [address] [place] [address] PCP - General Family Medicine 02/16/19 [employer] 02/08/24 documented as of this encounter
--- OUTSIDE RECORDS SUMMARY | 2024-08-05 11:28 | XMS_ITS | Encounter Summary ---
Author Organization [employer] Address [address] [facility] 7t [place] [address] Care Team Providers Care Chummer Name Role Phone Name, Stanley FRAGOSO Primary Care Provider [phone] Encounter Details Date Type Department Care Team (Late st Contact Info) Description 05/17/2022 Orders Only [facility] [address] [place] [address] Joya Sen LPN Social History Tobacco Use [...] EDT Telemedicine [facility] [address] [place] [address] Neida Lainez, RENETTA documented as of this encounter Visit Diagnoses Not on filedocumented in this encounter Care Teams Chummer Relationship Specialty Start Date End Date Name, MD Stanley [address] [place] [address] PCP - General Family Medicine 02/16/19 [employer] 02/08/24 documented as of this encounter
--- OUTSIDE RECORDS SUMMARY | 2024-08-05 11:28 | XMS_ITS | Encounter Summary ---
Author Organization [employer] Address [address] [facility] 7t [place] [address] Care Team Providers Care Director Of Vital Statistics Name Role Phone Name, Stanley FRAGOSO Primary Care Provider [phone] Reason for Visit * Reason Onset Date Comments ER Follow-up 10/14/2022 Encounter Details Date Type Department Care Team ([facility] st Contact Info) Description 10/14/2022 Telephone [facility] [address] [place] [address] Name, MD Stanley [address] [place] [address] ER Follow-up Social History Tobacco Use Types [...] - 10/14/2022 2:24 PM EDT T/C to [phone] for below message. Pt. States she does [...] to report ED visit on 10/12/22 at [facility]. Seen for fall. Patient advised will forward to team nurse for follow up. Patient speaks gabonese Symptom: Hip Injury Outcome: Schedule an appointment to be seen within 24 hours Reason: Caller denied all higher acuity questions The caller accepted this outcome documented in this encounter Plan of Treatment Upcoming Encounters Date Type Department Care Team (Late st Contact Info) Description 10/15/2024 10:00 AM EDT Telemedicine [facility] [address] [place] [address] Neida Lainez, RENETTA documented as of this encounter Visit Diagnoses Not on filedocumented in this encounter Care Teams Director Of Vital Statistics Relationship Specialty Start Date End Date Name, MD Stanley [address] [place] [address] PCP - General Family Medicine 02/16/19 [employer] 02/08/24 documented as of this encounter
--- OUTSIDE RECORDS SUMMARY | 2024-08-05 11:28 | XMS_ITS | Clinical Summary ---
Author Organization [address] [facility] Address [address] [place] [address] Phone Care Team Providers Care Stripper And Taper Name Role Phone Alejandro Britton MD Primary Care Provider [phone] Social History Tobacco Use Types Packs/Day Years Used Date Smoking Tobacco: Never Assessed Comments Unknown Sex and Gender Information Value Date Recorded Sex Assigned at Not on file Legal Sex Female 2:11 AM EST Gender Identity Not on file Sexual Orientation Not on file Plan of Treatment Health Maintenance Due Date Last Done Comments Zoster Vaccines (1 of 2) 09/28/2001 RSV Immunization Adult Patients (1 - Risk 60-74 years 1-dose series) 2011 Breast Cancer Screening 07/15/2020 07/15/2018 COVID-19 Vaccine ( - 2023-2 5 season) 2023 11/26/2020, 11/05/2020 Colorectal Cancer Screening: Colonoscopy 01/28/2024 Depression Screening 01/28/2024 Falls Risk Assessment 01/28/2024 Hepatitis C Screening 01/28/2024 Medicare Annual Wellness Visit 01/28/2024 Osteoporosis Screening (Bone Density Screening) 01/28/2024 Social Influencers of Health Screening 01/28/2024 Influenza Vaccine (Season Ended) 2024 12/18/2022, 01/15/2022 Hypertension/CHF/CAD Annual BMP Blood Test 01/26/2025 01/27/2024 [...] mmol/L LAB CHEMISTRY METHOD 01/27/2024 10:23 AM [facility] Potassium 4.3 3.5 - 5.5 mmol/L LAB CHEMISTRY METHOD 01/27/2024 10:23 AM [facility] Chloride 105 96 - 110 mmol/L LAB CHEMISTRY METHOD 01/27/2024 10:23 AM [facility] CO2 31 21 - 32 mmol/L LAB CHEMISTRY METHOD 01/27/2024 10:23 AM [facility] Anion Gap 4 3 - 11 LAB CHEMISTRY METHOD 01/27/2024 10:23 AM [facility] Glucose 87 70 - 100 mg/dL LAB CHEMISTRY METHOD 01/27/2024 10:23 AM [facility] BUN 16 5 - 25 mg/dL LAB CHEMISTRY METHOD 01/27/2024 10:23 AM [facility] Creatinine 0.62 0.50 - 1.10 mg/dL LAB CHEMISTRY METHOD 01/27/2024 10:23 AM EST [facility] eGFR 95 >=60 mL/min/1. 73m2 LAB CHEMISTRY METHOD 01/27/2024 10:23 AM EST [facility] Comment:Calculation based on the??Chronic Kidney Disease Epidemiology Collaboration (CKD-EPI) equation refit??without adjustment for race. BUN/Creatinine Ratio 25.8 LAB CHEMISTRY METHOD 01/27/2024 10:23 AM [facility] Calcium 8.8 8.5 - 10.5 mg/dL LAB CHEMISTRY METHOD 01/27/2024 10:23 AM [facility] Blood Venous blood specimen / Unknown Venipuncture / Unknown 01/27/2024 5:10 AM EST 01/27/2024 8:35 AM EST us Alejandro Britton MD LAB BLOOD ORDERABLES Final Resul t [facility] [address] [place] [address], from Last 3 Months or Most Recently Relevant to Health Maintenance Insurance MEDICAID - [place] [employer] MEDICARE Care Teams Stripper And Taper Relationship Specialty Start Date End Date Alejandro Britton MD [address] [place] [address] [address] [place] [address] PCP - General Geriatric Medicine 01/28/24
[2024-08-05 12:06] LABS: Iron 24 mcg/dL (30-160); Percent Iron Saturation 7 % (15-50); Total Iron Binding Capacity 347 mcg/dL (228-428); Unsaturated Iron Binding 323 ug/dL
[2024-08-05 12:23] LABS: Ferritin 11 ng/mL (10-250)
== END 2024-08-05 10:23 | disposition home or self-care (01) ==
LOC: HO.HHCL 10:22
PROVIDERS: Visit Provider Internal Medicine Geriatric Medicine
DX: D50.9 Iron deficiency anemia, unspecified (principal)
CPT/HCPCS: 36415; 82728; 83540

== ENCOUNTER → 2024-08-20 14:54 | Outpatient (BNV) | payer MEDICARE, MEDICAID, SELFPAY | PROVIDERS: PCP Internal Medicine Geriatric Medicine; Referring Provider Internal Medicine Geriatric Medicine; Visit Provider Nurse Practitioner Family | DX: D50.9 Iron deficiency anemia, unspecified (principal) | CPT/HCPCS: 99204 ==

== ENCOUNTER 2024-10-05 12:15 | Outpatient (RCR) | payer MEDICARE, MEDICAID, SELFPAY ==
[2024-08-30 13:08] VITALS: BP 134/66; PULSE 70; RESP 16; TEMP 36.7; O2SAT 100
[2024-09-07 13:44] VITALS: BP 135/69; PULSE 63; RESP 16; TEMP 36.7; O2SAT 100
[2024-09-14 11:49] VITALS: BP 113/55; PULSE 67; RESP 16; TEMP 36.2; O2SAT 98
[2024-09-22 13:18] VITALS: BP 104/61; PULSE 75; RESP 18; TEMP 36.6
[2024-09-29 12:23] VITALS: BP 126/44; PULSE 74; RESP 18; TEMP 36.4
[2024-09-29] MEDS: 0.9 % Sodium Chloride Flush 10 ML SYRINGE 5 ML IVFLUSH (12:52)
[2024-10-05 12:28] VITALS: BP 113/56; PULSE 67; RESP 16; TEMP 36.8; O2SAT 98
[2024-10-05 12:45] LABS: Hematocrit 34.2 % (37.0-47.0); Hemoglobin 10.6 g/dl (12.0-16.0); Mean Corpuscular HGB Conc 31.0 g/dl (31.0-35.0); Mean Corpuscular Hemoglobin 25.7 pg (27.0-33.0); Mean Corpuscular Volume 83.0 fL (80.0-98.0); NRBC Abs Auto 0.000 X10*3/uL (0.0-0.012); NRBC Pct Auto 0.0 /100WBC (0.0-0.2); Platelet Count 312 X10*3/uL (160-400); Red Blood Count 4.12 X10*6/uL (4.20-5.50); White Blood Count 8.4 X10*3/uL (4.8-10.8)
[2024-10-05 13:20] LABS: Ferritin 446 ng/mL (10-250)
== END 2024-10-05 13:32 | disposition home or self-care (01) ==
LOC: HO.INF 12:15
PROVIDERS: Visit Provider Nurse Practitioner Family
DX: D64.9 Anemia, unspecified (principal)
CPT/HCPCS: 36415; 82728; 85027; 96365; 96374; J1756

== ENCOUNTER 2024-11-29 12:11 | Outpatient (REF) | payer MEDICARE, MEDICAID, SELFPAY ==
--- OUTSIDE RECORDS SUMMARY | 2024-11-29 11:30 | XMS_ITS | Encounter Summary ---
Author Organization [employer] Address [address] [facility] 7t [place] [address] Care Team Providers Care Material Checker Name Role Phone Name, Stanley FRAGOSO Primary Care Provider [phone] Reason for Visit * Reason Comments Follow-up Encounter Details Date Type Department Care Team ([facility] st Contact Info) Description 11/29/2024 11:30 AM EDT Office Visit [facility] 230 [place], [place] [phone] Name, MD Stanley [address] [place] [address] Anemia, unspecified type (Primary Dx); Bilateral hand pain; Tinea corporis; Moderate persistent asthma, unspecified whether complicated Social [...] AM EDT documented as of this encounter Last Filed Vital Signs Vital Sign Reading Time Taken Comments Blood Pressure 140/82 11/29/2024 11:28 AM EDT Pulse 80 11/29/2024 11:28 AM EDT Temperature 36.6 C (97.9 F) 11/29/2024 11:28 AM EDT Respiratory Rate 20 11/29/2024 11:28 AM EDT Oxygen Saturation 97% 11/29/2024 11:28 AM EDT Inhaled Oxygen Concentration - - Weight 72.2 kg (159 lb 3.2 oz) 11/29/2024 11:28 AM EDT Height 152.4 cm (5') 11/29/2024 11:28 AM EDT Body Mass Index 31.09 11/29/2024 11:28 AM EDT documented in this encounter Progress Notes * Stanley Wilson MD - 11/29/2024 11:30 AM EDT Subjective Patient ID: Page Chavez is a 74 y.o. female who presents for Follow-up. Patient comes for a follow-up visit. She is accompanied by her [id number] that is also her [employer]ACT[employer] RES[employer]SE [employer] OFFICER. Her anemia has improved significantly with the use of iron infusion [place] [facility] [place]. Irsrw-sk-iibdqbznzgejuj is 11 today and she was around 8 prior to her iron infusion. She told [facility] [place] that she used to suffer with B12 deficiency but she is not sure. She now remembers that she used to get iron infusions in [place] but she never required IM B12. She is not using oral B12 supplements anymore. I am rechecking her B12 levels. She does not have any blood in stool or black stool. She [id number] with her colonoscopy, she has a personal history of hiatal hernia and she uses PPI daily. She avoids the use of NSAIDs. Today she also complains of bilateral arm and bilateral hand pain. She is following with [employer] [facility]. She has been referred for evaluation of her symptoms with nerve conduction studies to rule out carpal tunnel syndrome and an MRI of the cervical spine for possible cervical radiculopathy. Review of Systems Constitutional: Negative for chills and fever. HENT: Negative for sore throat. Respiratory: Negative for cough, shortness of breath and wheezing. Cardiovascular: Negative for chest pain, palpitations and leg swelling. Gastrointestinal: Negative for abdominal pain. Musculoskeletal: See HPI Skin: Patient has red and itchy groin rash consistent with tinea cruris Objective Vitals: 11/29/24 1128 BP: (!) 140/82 BP Location: Left arm Patient Position: Sitting BP Cuff Size: Adult Pulse: 80 Resp: 20 Temp: 97.9 ??F (36.6 ??C) TempSrc: Oral SpO2: 97% Weight: 159 lb 3.2 oz (72.2 kg) Height: 5' (1.524 m) Physical Exam Constitutional: Appearance: Normal appearance. Cardiovascular: Rate and Rhythm: Normal rate and regular rhythm. Heart sounds: No murmur heard. No gallop. Pulmonary: Effort: Pulmonary effort is normal. No respiratory distress. Breath sounds: Normal breath sounds. No wheezing. Musculoskeletal: Right lower leg: No edema. Left lower leg: No edema. Neurological: Mental Status: She is alert. Assessment/Plan Diagnoses and all orders for this visit: Anemia, unspecified type Comments: Much better. I am checking her B12 levels and she will continue following at [facility] [place] for Venofer treatments Orders: - POCT Hemoglobin - Vitamin B12/Folate, Serum Panel; Future Bilateral hand pain Comments: CTS?, cercival radiculopathy, continue PRN tramadol or acetaminophen, avoid NSAID, continue following at [facility] Tinea corporis Comments: I prescribed the patient topical Lotrisone Moderate persistent asthma, unspecified whether complicated Comments: Cotinue curreint inhalers and I refilled her Singulair. Her symptoms have been well controlled. Orders: - montelukast (Singulair) 10 MG tablet; Take 1 tablet (10 mg) by mouth in the evening. Other orders - clotrimazole-betamethasone (Lotrisone) cream; Apply topically 2 times daily for 28 days. Future Appointments Date Time Provider Department Center 12/17/2024 9:30 AM Neida Lainez RN MEDICINE [facility] documented in this encounter Plan of Treatment Upcoming Encounters Date Type Department Care Team (Late st Contact Info) Description 12/17/2024 9:30 AM EDT Telemedicine [facility] [address] [place] [address] [phone] Neida Lainez RN Scheduled Orders Name Type Priority Associated Diagnoses Orde r Schedule Vitamin B12/Folate, Serum Panel Lab Routine Anemia, unspecified type Expected: 11/29/2024, Expires: 11/29/2025 documented as of this encounter Procedures Procedure Name Priority Date/Time Associated Diagnosis Comments POCT HEMOGLOBIN Routine 11/29/2024 11:39 AM EDT Anemia, unspecified type documented in this encounter Results * (ABNORMAL) POCT Hemoglobin (11/29/2024 11:39 AM EDT) Hemoglobin 11.4(A) 12.0 - 15.0 QC Media Lot # [id number] Lot# Expiration Date Blood 11/29/2024 11:3 9 AM EDT Stanley Wilson MD POINT OF CARE TEST ENTER/EDIT OR DERABLES Final Result documented in this encounter Visit Diagnoses Diagnosis Anemia, unspecified type- Primary Bilateral hand pain Tinea corporis Dermatophytosis of the body Moderate persistent asthma, unspecified whether complicated documented in this encounter Additional Health Concerns Assessment Noted Time PHQ-9 Depression Total Score: 6 07/06/19 25 1:57 PM EDT documented as of this encounter Care Teams Material Checker Relationship Specialty Start Date End Date Name, MD Stanley [address] [place] [address] PCP - General Family Medicine 02/16/19 [employer] 02/08/24 documented as of this encounter
--- OUTSIDE RECORDS SUMMARY | 2024-11-29 14:36 | XMS_ITS | Encounter Summary ---
Author Organization [employer] Address 75 [facility] 7 [place] [address] Care Team Providers Care Film Sorter Name Role Phone Name, Stanley FRAGOSO Primary Care Provider [phone] Reason for Visit * Reason Onset Date Comments Medication Question 08/06/2022 Encounter Details Date Type Department Care Team ([facility] Contact Info) Description 08/06/2022 Telephone [facility] [address] [place], [place] [phone] Name, MD Stanley [address] [place] [address] Medication Question Social History Tobacco Use Types [...] on medication for tramadol. Please contact at [phone] Italian * Telephone Encounter - Sarah Kelley RN - 08/08/2022 10:05 AM EDT Placed call to [facility] Colorectal surgeon regarding message below. Advised Peggy that ASA is not indicated for pt if pt has no hx of [place], CVA, or stent placement. Peggy stated she [...] Please review message below as PCP off. [facility] colorectal requesting if pt should be on a daily ASA aspt platelets were elevated * Telephone Encounter - Tresa Agosto - 08/06/2022 9:59 AM EDT Tc from Peggy at [facility] Colorectal Surgery Dept calling in regards to patient having surgery with them on 07/22/22 and patient being week. They had patient get blood work where her platelets were high. Peggy is inquiring if it's okay for patient to be on daily aspiring. Please call [phone]. documented in this encounter Plan of Treatment Upcoming Encounters Date Type Department Care Team (Late st Contact Info) Description 12/17/2024 9:30 AM EDT Telemedicine [facility] [address] [place] [address] Neida Lainez RN documented as of this encounter Visit Diagnoses Not on filedocumented in this encounter Care Teams Film Sorter Relationship Specialty Start Date End Date Name, MD Stanley [address] [place] [address] PCP - General Family Medicine 02/16/19 [employer] 02/08/24 documented as of this encounter
--- OUTSIDE RECORDS SUMMARY | 2024-11-29 14:36 | XMS_ITS | Encounter Summary ---
Author Organization [employer] Address 75 [facility] 7t [place] [address] Care Team Providers Care Banner Painter Name Role Phone Name, Stanley FRAGOSO Primary Care Provider [phone] Reason for Visit * Reason Onset Date Comments Appointment Request 07/04/2023 Encounter Details Date Type Department Care Team ([facility] Contact Info) Description 07/04/2023 Telephone [facility] [address] [place] [address] Name, MD Stanley [address] [place] [address] Appointment Request Social History Tobacco Use Types [...] t he electric, gas, oil or water [employer] threatened to shut off services in your [...] Info) Description 12/17/2024 9:30 AM EDT Telemedicine [facility] [address] [place] [address] Neida Lainez, RENETTA documented as of this encounter Visit Diagnoses Not on filedocumented in this encounter Care Teams Banner Painter Relationship Specialty Start Date End Date Name, MD Stanley [address] [place] [address] PCP - General Family Medicine 02/16/19 [employer] 02/08/24 documented as of this encounter
--- OUTSIDE RECORDS SUMMARY | 2024-11-29 14:36 | XMS_ITS | Encounter Summary ---
Author Organization [employer] Address 75 [facility] 7t [place] [address] Care Team Providers Care Habilitative Interventionist Name Role Phone Name, Stanley FRAGOSO Primary Care Provider [phone] Reason for Visit * Reason Comments Med Refill Encounter Details Date Type Department Care Team ([facility] st Contact Info) Description 03/19/[address] [facility] [address] [place], [place] [phone] Sukhdev Meyer MD [address] [place] [address] Acute pain of right knee Social History [...] the past 12 months, has t he [employer], [employer], oil or water company threatened to shut [...] Info) Description 12/17/2024 9:[address] [facility] [address] [place] [address] Neida Lainez RN documented as of this encounter Visit Diagnoses Diagnosis Acute pain of right knee documented in this encounter Care Teams Habilitative Interventionist Relationship Specialty Start Date End Date Name, MD Stanley [address] [place] [address] PCP - General Family Medicine 02/16/19 [employer] 02/08/24 documented as of this encounter
--- OUTSIDE RECORDS SUMMARY | 2024-11-29 14:36 | XMS_ITS | Encounter Summary ---
Author Organization [employer] Address 75 [facility] 7t [place] [address] Care Team Providers Care Clinical Courier Name Role Phone Name, Stanley FRAGOSO Primary Care Provider [phone] Encounter Details Date Type Department Care Team (Late st Contact Info) Description 05/17/2022 Orders Only [facility] [address] [place] [address] Joya Sen LPN Social History Tobacco Use [...] Info) Description 12/17/2024 9:30 AM EDT Telemedicine [facility]INE [address] [place] [address] Neida Lainez, RENETTA documented as of this encounter Visit Diagnoses Not on filedocumented in this encounter Care Teams Clinical Courier Relationship Specialty Start Date End Date Name, MD Stanley [address] [place] [address] PCP - General Family Medicine 02/16/19 [employer] 02/08/24 documented as of this encounter
--- OUTSIDE RECORDS SUMMARY | 2024-11-29 14:36 | XMS_ITS | Encounter Summary ---
Author Organization [facility] Address [address] [place] [address] Care Team Providers Care Respiratory Physician Name Role Phone Alejandro Britton MD Primary Care Provider [phone] Encounter Details Date Type Department Care Team (Late st Contact Info) Description 01/27/2024 Lab Requisition [facility] - Main Lab [address] [place] [address] Alejandro Britton MD [address] [place] [address] Anemia, unspecified Social History Tobacco Use Types [...] Travel phlebotomy fee (01/27/2024 5:10 AM EST) [facility] TRAVEL PHLEBOTOMY FEE Completed 01/27/2024 9:01 AM EST [facility]) [facility] Blood Venous blood specimen / Unknown Venipuncture / Unknown 01/27/2024 5:10 AM EST 01/27/2024 8:35 AM EST Alejandro Britton MD LAB BLOOD ORDERABLES Final Resul t [facility] [address] [place] [address], [place] [phone] * Basic metabolic panel (01/27/2024 5:10 AM EST) Sodium 140 133 - 145 mmol/L LAB CHEMISTRY METHOD 01/27/2024 10:23 AM [facility] Potassium 4.3 3.5 - 5.5 mmol/L LAB CHEMISTRY METHOD 01/27/2024 10:23 AM [facility] Chloride 105 96 - 110 mmol/L LAB CHEMISTRY METHOD 01/27/2024 10:23 AM [facility] CO2 31 21 - 32 mmol/L LAB CHEMISTRY METHOD 01/27/2024 10:23 AM [facility] Anion Gap 4 3 - 11 LAB CHEMISTRY METHOD 01/27/2024 10:23 AM [facility] Glucose 87 70 - 100 mg/dL LAB CHEMISTRY METHOD 01/27/2024 10:23 AM [facility] BUN 16 5 - 25 mg/dL LAB CHEMISTRY METHOD 01/27/2024 10:23 AM [facility] Creatinine 0.62 0.50 - 1.10 mg/dL LAB CHEMISTRY METHOD 01/27/2024 10:23 AM [facility] eGFR 95 >=60 mL/min/1. 73m2 LAB CHEMISTRY METHOD 01/27/2024 10:23 AM [facility] Comment:Calculation based on the Chronic Kidney Disease Epidemiology Collaboration (CKD-EPI) equation refit without adjustment for race. BUN/Creatinine Ratio 25.8 LAB CHEMISTRY METHOD 01/27/2024 10:23 AM [facility] Calcium 8.8 8.5 - 10.5 mg/dL LAB CHEMISTRY METHOD 01/27/2024 10:23 AM [facility] Blood Venous blood specimen / Unknown Venipuncture / Unknown 01/27/2024 5:10 AM EST 01/27/2024 8:35 AM EST us Alejandro Britton MD LAB BLOOD ORDERABLES Final Resul t [facility] [address] [place] [address], [place] [phone] * (ABNORMAL) Complete blood count (01/27/2024 5:10 AM EST) WBC 7.6 4.8 - 10.8 K/mcL LAB HEMETOLOGY METHOD 01/27/2024 9:59 AM [facility] RBC 3.10(L) 3.80 - 4.80 M/mcL LAB HEMETOLOGY METHOD 01/27/2024 9:59 AM [facility] Hemoglobin 7.5(L) 11.5 - 16.0 g/dL LAB HEMETOLOGY METHOD 01/27/2024 9:59 AM [facility] Hematocrit 25.2(L) 35.0 - 47.0 % LAB HEMETOLOGY METHOD 01/27/2024 9:59 AM [facility] MCV 82.6 79.0 - 98.0 FL LAB HEMETOLOGY METHOD 01/27/2024 9:59 AM [facility] MCH 24.6(L) 27.0 - 32.0 pcg LAB HEMETOLOGY METHOD 01/27/2024 9:59 AM [facility] MCHC 29.8(L) 32.0 - 37.0 g/dL LAB HEMETOLOGY METHOD 01/27/2024 9:59 AM [facility] RDW 15.2(H) 11.0 - 15.0 [...] [facility] NRBC Absolute 0.00 <0.10 K/mcL LAB HEMETOLOGY METHOD 01/27/2024 9:59 AM [facility] Blood Venous blood specimen / Unknown Venipuncture / Unknown 01/27/2024 5:10 AM EST 01/27/2024 8:35 AM EST us Alejandro Britton MD LAB BLOOD ORDERABLES Final Resul t [facility] [address] [place] [address], documented in this encounter Visit Diagnoses Diagnosis Anemia, unspecified documented in this encounter Care Teams Respiratory Physician Relationship Specialty Start Date End Date Alejandro Britton MD [address] [place] [address] [address] [place] [address] PCP - General Geriatric Medicine 01/28/24 documented as of this encounter
--- OUTSIDE RECORDS SUMMARY | 2024-11-29 14:36 | XMS_ITS | Clinical Summary ---
Author Organization 299 [facility] Address [address] [place] [address] Phone Care Team Providers Care Manager Chinese Name Role Phone Alejandro Britton MD Primary Care Provider [phone] Social History Tobacco Use Types Packs/Day Years [...] series) 2011 Breast Cancer Screening 07/15/2020 07/15/2018 Colorectal Cancer Screening: Colonoscopy 01/28/2024 Falls Risk Assessment 01/28/2024 Hepatitis C Screening 01/28/2024 Medicare Annual Wellness Visit 01/28/2024 Osteoporosis Screening (Bone Density Screening) 01/28/2024 Social Influencers of Health Screening 01/28/2024 Depression Screening 03/24/2024 COVID-19 Vaccine (3 - 2024-2 6 season) 2024 11/26/2020, 11/05/2020 Influenza Vaccine (#1) 2024 3, 01/15/2022 Hypertension/CHF/CAD Annual BMP Blood Test 01/26/2025 [...] mmol/L LAB CHEMISTRY METHOD 01/27/2024 10:23 AM [facility] Potassium 4.3 3.5 - 5.5 mmol/L LAB CHEMISTRY METHOD 01/27/2024 10:23 AM [facility] Chloride 105 96 - 110 mmol/L LAB CHEMISTRY METHOD 01/27/2024 10:23 AM [facility] CO2 31 21 - 32 mmol/L LAB CHEMISTRY METHOD 01/27/2024 10:23 AM [facility] Anion Gap 4 3 - 11 LAB CHEMISTRY METHOD 01/27/2024 10:23 AM [facility] Glucose 87 70 - 100 mg/dL LAB CHEMISTRY METHOD 01/27/2024 10:23 AM [facility] BUN 16 5 - 25 mg/dL LAB CHEMISTRY METHOD 01/27/2024 10:23 AM [facility] Creatinine 0.62 0.50 - 1.10 mg/dL LAB CHEMISTRY METHOD 01/27/2024 10:23 AM EST [facility] eGFR 95 >=60 mL/min/1. 73m2 LAB CHEMISTRY METHOD 01/27/2024 10:23 AM EST [facility] Comment:Calculation based on the Chronic Kidney Disease Epidemiology Collaboration (CKD-EPI) equation refit without adjustment for race. BUN/Creatinine Ratio 25.8 LAB CHEMISTRY METHOD 01/27/2024 10:23 AM EST [facility] Calcium 8.8 8.5 - 10.5 mg/dL LAB CHEMISTRY METHOD 01/27/2024 10:23 AM [facility] Blood Venous blood specimen / Unknown Venipuncture / Unknown 01/27/2024 5:10 AM EST 01/27/2024 8:35 AM EST Alejandro Britton MD LAB BLOOD ORDERABLES Final Resul t [facility] [address] [place] [address], from Last 3 Months or Most Recently Relevant to Health Maintenance Insurance MEDICAID - [place] [employer] MEDICARE Care Teams Manager Chinese Relationship Specialty Start Date End Date Alejandro Britton MD [address] [place] [address] [address] [place] [address] PCP - General Geriatric Medicine 01/28/24
--- OUTSIDE RECORDS SUMMARY | 2024-11-29 14:36 | XMS_ITS | Encounter Summary ---
Author Organization [employer] Address 75 [facility] 7t [place] [address] Care Team Providers Care Lathe Hand Name Role Phone Name, Stanley FRAGOSO Primary Care Provider [phone] Reason for Visit * Reason Comments Med Refill Encounter Details Date Type Department Care Team ([facility] st Contact Info) Description 02/20/[address] [facility]INE [address] [place], [place] [phone] Sukhdev Meyer MD [address] [place] [address] Acute pain of right knee Social History [...] the past 12 months, has t he [employer], oil or water company threatened to shut [...] Info) Description 12/17/2024 9:30 AM EDT Telemedicine [facility] MED[facility]INE [address] [place] [address] Neida Lainez RN documented as of this encounter Visit Diagnoses Diagnosis Acute pain of right knee documented in this encounter Care Teams Lathe Hand Relationship Specialty Start Date End Date Name, MD Stanley [address] [place] [address] PCP - General Family Medicine 02/16/19 [employer] 02/08/24 documented as of this encounter
--- OUTSIDE RECORDS SUMMARY | 2024-11-29 14:36 | XMS_ITS | Encounter Summary ---
Author Organization [employer] Address 75 [facility] 7t [place] [address] Care Team Providers Care Clinical Lab Clerk Name Role Phone Name, Stanley FRAGOSO Primary Care Provider [phone] Encounter Details Date Type Department Care Team (Latest Contact Info) Description 11/29/2024 Travel Social History Tobacco Use Types Packs/Day [...] 12/17/2024 9:30 AM EDT Telemedicine [facility]INE [address] [place] [address] Neida Lainez RN documented as of this encounter Visit Diagnoses Not on filedocumented in this encounter Additional Health Concerns Assessment Noted Time PHQ-9 Depression Total Score: 6 07/06/19 25 1:57 PM EDT documented as of this encounter Care Teams Clinical Lab Clerk Relationship Specialty Start Date End Date Name, MD Stanley [address] [place] [address] PCP - General Family Medicine 02/16/19 [employer] 02/08/24 documented as of this encounter
--- OUTSIDE RECORDS SUMMARY | 2024-11-29 14:36 | XMS_ITS | Clinical Summary ---
Author Organization [email or web address] Address [address] [place] [address] 7t [place] [address] Care Team Providers Care Strategic Business Development Name Role Phone Name, Stanley FRAGOSO Primary Care Provider [phone] Allergies Active Allergy Reactions Criticality Noted Date [...] 200-25 MCG/ACT aerosol powder 023 Active Umeclidinium Shoshone (Incruse Ellipta) 62.5 MCG/ACT aerosol powder Inhale 1 puff at bed time. Active Fasenra 30 MG/ML injection 023 Active omeprazole (PriLOSEC) [address] capsuleIndicati [...] DAILY NEEDED. 100 g 3 024 Active simvastatin (Zocor) 40 MG tabletIndicatio ns:Essential [...] for 1 week 15 g 025 Active ferrous sulfate (Fe Tabs) 325 (65 Fe) MG EC tablet Take 1 tablet (325 mg) by mouth with breakfast. Do not crush, chew, or split. 30 tablet 2 025 2025 Active famotidine (Pepcid) 20 MG tabletIndicatio ns:Lower abdominal pain TAKE 1 TABLET BY MOUTH EVERY DAY NEEDED FOR HEARTBURN 90 tablet 025 Active atenolol (Tenormin) 50 MG tabletIndicatio ns:Essential hypertension TAKE 1 TABLET BY MOUTH EVERY DAY 90 tablet 025 Active levothyroxine (Synthroid, Levoxyl) 88 MCG tablet Take 1 tablet (88 mcg) by mouth Once per day. 90 tablet 025 Active irbesartan (Avapro) 150 MG tabletIndicatio ns:Essential hypertension TAKE 1 TABLET BY MOUTH EVERY DAY 90 tablet 1 025 Active traMADol (Ultram) 50 MG tabletIndicatio ns:Chronic low back pain with sciatica, sciatica laterality unspecified, unspecified back pain laterality Take 1 tablet (50 mg) by mouth every 12 (twelve) hours if needed for severe pain for up to 28 days. Do not start before November 25, 2024. 56 tablet 025 2024 Active clotrimazole-be tamethasone (Lotrisone) cream Apply topically 2 times daily for 28 days. 45 g 3 025 2024 Active montelukast (Singulair) 10 MG tabletIndicatio ns:Moderate persistent asthma, unspecified whether complicated Take 1 tablet (10 mg) by mouth in the evening. 90 tablet 1 025 Active montelukast (Singulair) 10 MG tabletIndicatio ns:Moderate persistent asthma, unspecified whether complicated TAKE 1 TABLET BY MOUTH EVERY DAY IN THE EVENING 90 tablet 1 024 2024 Discontinued(R eorder (will not trigger notification to Pharmacy)) irbesartan (Avapro) 150 MG tabletIndicatio ns:Essential hypertension TAKE 1 TABLET BY MOUTH EVERY DAY 90 tablet 1 025 2024 Discontinued traMADol (Ultram) 50 MG tabletIndicatio ns:Chronic low back pain with sciatica, sciatica laterality unspecified, unspecified back pain laterality Take 1 tablet (50 mg) by mouth every 12 (twelve) hours if needed for severe pain for up to 28 days. 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 H/O partial resection [...] 03/27/2016 Osteopenia 03/27/2016 Osteoarthritis of knee 03/27/2016 Resolved Problems Problem Noted Date Diagnosed Date Resolved Date Asthma 09/20/2022 11/29/2024 Encounters Date Type Department Care Team Description 11/29/2024 11:30 AM EDT Office Visit [facility] [address] [place] [phone] Stanley Wislon MD Anemia, unspecified type (Primary Dx); Bilateral hand pain; Tinea corporis; Moderate persistent asthma, unspecified whether complicated 11/29/2024 Travel 11/26/2024 Telephone [facility] [address] [place] [phone] Stanley Wilson MD Chart Prep 11/23/2024 Refill [facility] [address] [place] [phone] Stanley Wilson MD Chronic low back pain with sciatica, sciatica laterality unspecified, unspecified back pain laterality 11/16/2024 Refill [facility] [address] [place] [address] Stanley Wilson MD Essential hypertension 10/28/2024 Refill [facility] [address] [place] [phone] Stanley Wilson MD 10/28/2024 Refill [facility] [address] [place] [address] Stanley Wilson MD Chronic low back pain with sciatica, sciatica laterality unspecified, unspecified back pain laterality 10/15/2024 10:00 AM EDT Telemedicine [facility] [place] [address] Neida Lainez RN Long-term current use of opiate analgesic 10/15/2024 Travel 09/30/2024 Refill [facility] [address] [facility] [place] [address] Stanley Wilson MD Chronic low back pain with sciatica, sciatica laterality unspecified, unspecified back pain laterality 09/23/2024 Refill [facility] [address] [facility] [place] [address] Stanley Wilson MD Lower abdominal pain; Essential hypertension 08/31/2024 Telephone [facility] [address] [facility] [place] [address] Stanley Wilson MD Med Refill from Last 3 Months Immunizations Immunization Administration [...] Mass Index 31.09 11/29/2024 11:28 AM EDT Plan of Treatment Upcoming Encounters Date Type Department Care Team (Late st Contact Info) Description 12/17/2024 9:30 AM EDT Telemedicine [facility] [address] [place] [address] Neida Lainez, RENETTA Health Maintenance Due Date Last Done Comments CT Colonography 1951 FIT DNA/Cologuard 1950 FIT 1950 FOBT 1950 Sigmoidoscopy 1950 Hepatitis C Screening 09/28/1969 Zoster Vaccines (1 of 2) 09/28/2001 RSV Patients and Patients Aged 60 years or older (1 - Risk 60-74 years 1-dose series) 2011 Mammogram 07/15/2020 07/15/2018, 07/14/2018, 06/06/2017 COVID-19 Vaccine (3 - 2024-2 6 season) 2024 11/26/2020, 11/05/2020 Influenza Vaccine (#1) 2024 , 01/15/2022 Depression Screening 07/05/2025 07/05/2024, 07/05/2024 SDOH Screening 07/05/2025 07/05/2024 Alcohol/Substance Use Screening 11/29/2025 11/29/2024 Tobacco Screening 11/29/2025 11/29/2024 Colonoscopy 07/23/2027 07/22/2017 Colorectal Cancer Screening 07/23/2027 [...] 11/29/2024 11:39 AM EDT Anemia, unspecified type LIPID PANEL, STANDARD Routine 08/04/2024 8:57 AM EDT Dyslipidemia BI MAMMOGRAM SCREENING BILATERAL Routine 07/15/2018 1:13 PM EDT HM COLONOSCOPY Routine 07/22/2017 from Last 3 Months or Most Recently Relevant to Health Maintenance Results * (ABNORMAL) POCT Hemoglobin (11/29/2024 11:39 AM EDT) Hemoglobin 11.4(A) 12.0 - 15.0 QC Media Lot # [id number] Lot# Expiration Date Blood 11/29/2024 11:3 9 AM EDT us Stanley Wilson MD POINT OF CARE TEST ENTER/EDIT OR DERABLES Final Result * (ABNORMAL) Lipid Panel, Standard (08/04/2024 8:57 AM EDT) Triglycerides 156(H) <150 mg/dL [facility] Comment:Desirable Triglyceri de: less than 150 mg/dLBorderline High Triglyceride 150-199 mg/dLHigh Triglyceride: 200-499 mg/dLVery High Triglyceride: greater than or equal to 5OO mg/dL Cholesterol 184 <200 mg/dL [facility] Comment:Desirable Cholestero l: less than 200 mg/dLBorderline High Cholesterol: 200-239 mg/dLHigh Cholesterol: greater than 239 mg/dL LDL Cholesterol Calculated 95 <100 mg/dL [facility] Comment:Desirable LDL: less than 100 mg/dLNear Optimal/Above Optimal LDL: 110- 129 mg/dLBorderline High LDL: 130-159 mg/dLHigh LDL: 160-189 mg/dLVery High LDL: greater than or equal to 190 mg/dL HDL Cholesterol 58 >40 mg/dL [facility] Comment:Desirable HDL: great er than 40 mg/dL Note: This HDL assay may give artificially low results in patients with liver disease. Blood Venous blood specimen / Unknown 08/04/2024 8:57 AM EDT 08/04/2024 10:54 AM EDT us Stanley Wilson MD LAB BLOOD ORDERABLES Final Resul t [facility] [address] [place] [address] [phone] * DIGITAL BILATERAL SCREEN 1 (07/15/2018 [...] t * Hm Colonoscopy (07/22/2017) Colonoscopy performed Mejia Provider HEALTH MAINTENANCE Final Result from Last 3 Months or Most Recently Relevant to Health Maintenance Insurance MEDICARE ADVANTAGE Care Teams Strategic Business Development Relationship Specialty Start Date End Date Name, MD Stanley [address] [place] [phone] PCP - General Family Medicine 02/16/19 [employer] 02/08/24
--- OUTSIDE RECORDS SUMMARY | 2024-11-29 14:36 | XMS_ITS | Encounter Summary ---
Author Organization [employer] Address [address] [place] [address] [address] [place] [address] Care Team Providers Care Real Estate Marketing Coordinator Name Role Phone Name, Stanley FRAGOSO Primary Care Provider [phone] Encounter Details Date Type Department Care Team ([facility] Contact Info) Description 08/23/[address] [facility] [address] [place] [phone] Name, MD Stanley [address] [place] [address] [phone] Social History Tobacco Use Types Packs/Day Years [...] Encounters Date Type Department Care Team (Late Contact Info) Description 12/17/2024 9:[address] [facility] [address] [place] [address] [phone] Neida Lainez RN documented as of this encounter Visit Diagnoses Not on filedocumented in this encounter Care Teams Real Estate Marketing Coordinator Relationship Specialty Start Date End Date Name, MD Stanley [address] [place] [address] [phone] PCP - General Family Medicine 02/16/19 [employer] 02/08/24 documented as of this encounter
--- OUTSIDE RECORDS SUMMARY | 2024-11-29 14:36 | XMS_ITS | Encounter Summary ---
Author Organization [employer] Address [address] [facility] [address]t h [place] [address] Care Team Providers Care Forming Department End Finder Name Role Phone Name, Stanley FRAGOSO Primary Care Provider [phone] Reason for Visit * Reason Onset Date Comments ER Follow-up 10/14/2022 Encounter Details Date Type Department Care Team ([facility] st Contact Info) Description 10/14/2022 Telephone [facility] [address] [place] [address] Name, MD Stanley [address] [place] [address] ER Follow-up Social History Tobacco Use Types [...] - 10/14/2022 2:24 PM EDT T/C to [phone] for below message. Pt. States she does [...] to report ED visit on 10/12/22 at [facility]. Seen for fall. Patient advised will forward to team nurse for follow up. Patient speaks andorran Symptom: Hip Injury Outcome: Schedule an appointment to be seen within 24 hours Reason: Caller denied all higher acuity questions The caller accepted this outcome documented in this encounter Plan of Treatment Upcoming Encounters Date Type Department Care Team (Late st Contact Info) Description 12/17/2024 9:30 AM EDT Telemedicine [facility] [address] [place] [id number] Neida Lainez, RENETTA documented as of this encounter Visit Diagnoses Not on filedocumented in this encounter Care Teams Forming Department End Finder Relationship Specialty Start Date End Date Name, MD Stanley [address] [place] [id number] PCP - General Family Medicine 02/16/19 [employer] 02/08/24 documented as of this encounter
--- OUTSIDE RECORDS SUMMARY | 2024-11-29 14:36 | XMS_ITS | Encounter Summary ---
Author Organization [employer] Address [address] [facility] 7t [place] [address] Care Team Providers Care Lithoduplicator Operator Name Role Phone Name, Stanley FRAGOSO Primary Care Provider [phone] Reason for Visit * Reason Onset Date Comments Chart Prep 11/26/2024 Encounter Details Date Type Department Care Team ([facility] st Contact Info) Description 11/26/2024 Telephone [facility] [address] [place], [place] [phone] Name, MD Stanley [address] [place] [address] Chart Prep Social History Tobacco Use Types Packs/Day Years [...] encounter Miscellaneous Notes * Telephone Encounter - Reina Gold [place] - 11/26/2024 10:42 AM EDT Chart Prep Labs: done from 08/05/24 Images: not applicable Referrals: Hematology and Oncology - Patient kept appointment notes in chart. Vaccines due: Covid, Flu, RSV, and Zoster Screenings: mammogram and Hep C. Overdue care gaps: SBIRT and Tobacco documented in this encounter Plan of Treatment Upcoming Encounters Date Type Department Care Team (Late st Contact Info) Description 12/17/2024 9:30 AM EDT Telemedicine [facility] [address] [place] [address] Neida Lainez, RENETTA documented as of this encounter Visit Diagnoses Not on filedocumented in this encounter Additional Health Concerns Assessment Noted Time PHQ-9 Depression Total Score: 6 07/06/19 25 1:57 PM EDT documented as of this encounter Care Teams Lithoduplicator Operator Relationship Specialty Start Date End Date Name, MD Stanley [address] [place] [address] PCP - General Family Medicine 02/16/19 [employer] 02/08/24 documented as of this encounter
--- OUTSIDE RECORDS SUMMARY | 2024-11-29 14:36 | XMS_ITS | Encounter Summary ---
Author Organization [employer] Address [address] [facility] 7t [place] [address] Care Team Providers Care Coal Or Ore Controller Name Role Phone Name, Stanley FRAGOSO Primary Care Provider [phone] Reason for Visit * Reason Comments Med Refill Encounter Details Date Type Department Care Team ([facility] st Contact Info) Description 12/03/2023 Refill [facility] [address] [place], [place] [phone] Name, MD Stanley [address] [place] [address] Chronic bilateral low back pain, unspecified whether [...] 12/17/2024 9:30 AM EDT Telemedicine [facility] [address] [place] [address] Neida Lainez, RN documented as of this encounter Visit Diagnoses Diagnosis Chronic bilateral low back pain, unspecified whether sciatica present DJD (degenerative joint disease), lumbosacral Degeneration of lumbar or lumbosacral intervertebral disc Essential hypertension Unspecified essential hypertension Moderate persistent asthma, unspecified whether complicated documented in this encounter Care Teams Coal Or Ore Controller Relationship Specialty Start Date End Date Name, MD Stanley [address] [place] [address] PCP - General Family Medicine 02/16/19 [employer] 02/08/24 documented as of this encounter
--- OUTSIDE RECORDS SUMMARY | 2024-11-29 14:36 | XMS_ITS | Encounter Summary ---
Author Organization [employer] Address [address] [facility] 7t [place] [address] Care Team Providers Care Sole Assessor Name Role Phone Name, Stanley FRAGOSO Primary Care Provider [phone] Reason for Visit * Reason Onset Date Comments Med Refill 06/30/2023 Acute pain - right knee arthroscopy 05/30/2306/29 Encounter Details Date Type Department Care Team (Late st Contact Info) Description 06/30/2023 Telephone [facility] [address] [place], [place] [phone] Name, MD Stanley [address] [place], [place] [phone] Med Refill; Acute pain - right knee [...] AM EDT TC to patient, spoke with jreica/Noble. Reviewed patients recent surgical history - right [...] 50 MG tablet To be sent to: [id number] - [place], [place] - [address] AT [employer] [facility] documented in this encounter Plan of Treatment Upcoming Encounters Date Type Department Care Team (Late st Contact Info) Description 12/17/2024 9:30 AM EDT Telemedicine [facility] [address] [place] [phone] Neida Lainez RN documented as of this encounter Visit Diagnoses Not on filedocumented in this encounter Care Teams Sole Assessor Relationship Specialty Start Date End Date Name, MD Stanley [address] [place] [address] PCP - General Family Medicine 02/16/19 [employer] 02/08/24 documented as of this encounter
--- OUTSIDE RECORDS SUMMARY | 2024-11-29 14:36 | XMS_ITS | Encounter Summary ---
Author Organization [employer] Address [address] [facility] 7t [place] [address] Care Team Providers Care Production Statistical Clerk Name Role Phone Name, Stanley FRAGOSO Primary Care Provider [phone] Encounter Details Date Type Department Care Team ([facility] Contact Info) Description 04/09/[address] [facility] [address] [place] [phone] Joya Sen LPN Social History Tobacco Use [...] Description 12/17/2024 9:[address] [facility] [address] [place] [phone] Neida Lainez RN documented as of this encounter Visit Diagnoses Not on filedocumented in this encounter Care Teams Production Statistical Clerk Relationship Specialty Start Date End Date Name, MD Stanley [address] [place] [id number] PCP - General Family Medicine 02/16/19 [employer] 02/08/24 documented as of this encounter
--- OUTSIDE RECORDS SUMMARY | 2024-11-29 14:36 | XMS_ITS | Encounter Summary ---
Author Organization [employer] [facility] Address [address] [place] [address] [address] [place] [address] Care Team Providers Care Stereotype Molder Name Role Phone Name, Stanley FRAGOSO Primary Care Provider [phone] Encounter Details Date Type Department Care Team (Late st Contact Info) Description 08/29/2022 Orders Only [address] [address] Joya Sen LPN Social History Tobacco Use [...] Info) Description 12/17/2024 9:30 AM EDT Telemedicine [address] [address] Neida Lainez, RN documented as of this encounter Visit Diagnoses Not on filedocumented in this encounter Care Teams Stereotype Molder Relationship Specialty Start Date End Date Name, MD Stanley [address] [place] [phone] PCP - General Family Medicine 02/16/19 [employer] 02/08/24 documented as of this encounter
[2024-11-29 14:52] LABS: Folate 12.2 ng/mL (> or = 4.0); Vitamin B12 751 pg/mL (200-900)
== END 2024-11-29 12:12 | disposition home or self-care (01) ==
LOC: HO.HHCL 12:11
PROVIDERS: PCP Internal Medicine Geriatric Medicine; Visit Provider Internal Medicine Geriatric Medicine
DX: D64.9 Anemia, unspecified (principal)
CPT/HCPCS: 36415; 82607; 82746